=== PATIENT | female | born 1955 | race Caucasian/White ===

== ENCOUNTER → 2016-07-29 | Outpatient (CLI) | payer OTHER ==
--- NOTE | 2016-08-01 08:29 | XR ---
EXAMINATION TYPE: XR lumbosacral spine min 4V DATE OF EXAM: 07/29/2016 12:11 PM CLINICAL HISTORY: pain COMPARISON: NONE TECHNIQUE: Frontal, lateral, and oblique images of the lumbar spine are obtained. FINDINGS: There is moderate degenerative disc space narrowing at L4-5 and L5-S1. Moderate facet joint arthropathy is noted. Grade 1 anterolisthesis L4 and L5 measuring 5.5 mm as well as at L5-S1 measuri ng 2.8 mm. No evidence for compression fracture or osseous lesion. IMPRESSION: No acute fracture or dislocation is seen in the lumbar spine. Degenerative changes as di scussed ICD 10 NO FRACTURE, INITIAL EVALUATION
== END | disposition home or self-care (01) ==
LOC: RADXRYALE 11:54
PROVIDERS: ATTEND Internal Medicine
DX: M43.06 Spondylolysis, lumbar region (principal); M43.07 Spondylolysis, lumbosacral region; M12.88 Other specific arthropathies, not elsewhere classified, other specified site
CPT/HCPCS: 72110

== ENCOUNTER → 2016-10-31 | Outpatient (CLI) | payer OTHER ==
--- NOTE | 2016-11-01 09:40 | MM ---
Reason for exam: screening (asymptomatic). Last mammogram was performed 1 year ago. History: Patient is postmenopausal. Family history of breast cancer in grandmother. Took hormonal contraceptives for 10 years. Physical Findings: A clinical breast exam by your physician is recommended on an annual basis and results should be correlated with mammographic findings. MG Screening Mammo w CAD Bilateral CC and MLO view(s) were taken. Prior study comparison: October 26, 2015, bilateral MG screening mammo w CAD. October 20, 2014, bilateral MG screening mammo w CAD. September 19, 2013, bilateral digital screening mammo w/CAD. The breast tissue is heterogeneously dense. This may lower the sensitivity of mammography. There is no discrete abnormality. ASSESSMENT: Negative, BI-RAD 1 RECOMMENDATION: Routine screening mammogram of both breasts in 1 year.
== END | disposition home or self-care (01) ==
LOC: RADMAMWWP 10:13
PROVIDERS: ATTEND Internal Medicine
DX: Z12.31 Encounter for screening mammogram for malignant neoplasm of breast (principal)

== ENCOUNTER 2017-04-24 23:13 | Emergency (ER) | payer OTHER ==
[2017-04-24] MEDS ORDERED: DEXAMETHASONE SOD PHOSPHATE 10 MG/ML 1 ML VIAL IV STA (23:38)
[2017-04-24] MEDS ORDERED: SODIUM CHLORIDE 0.9% 1,000 ML IV ONE (23:38)
[2017-04-24] MEDS ORDERED: FAMOTIDINE 20 MG/2 ML VIAL IV STA (23:38)
--- NOTE | 2017-04-24 23:49 | ED ---
General Adult HPI - General Chief complaint: Skin/Abscess/Foreign Body Stated complaint: 20 Bee stings/Tongue swelling Time Seen by Provider: 04/24/17 23:27 Source: patient Mode of arrival: ambulatory Limitations: no limitations - History of Present Illness Initial comments: Patient is a 61-year-old female who presents with a chief complaint of multiple bee stings. Patient was mowing her lawn earlier today, and ran over a beehive. At that point she was attacked by multiple bees and sustained several bee stings. Immediately after being stung, the patient changed her clothes and went to the store and got Benadryl. Initially she took 50 mg. At around 9:00, the patient took 50 mg more. They presented to the emergency department because despite the Benadryl, she is having erythema and induration around the sites. Patient was stung on her right maxilla, right inner thigh, right lower back, and midline abdomen. Patient denies shortness of breath, or trouble swallowing. Patient has a significant medical history of hypertension, hypercholesterolemia, and vertigo. At this time, the patient has no other complaints. - Related Data Home Medications Medication Instructions Recorded Confirmed Atenolol [Tenormin] 25 mg PO BID 03/16/14 04/25/17 Citalopram Hydrobromide [CeleXA] 20 mg PO DAILY 03/16/14 04/25/17 Losartan/Hydrochlorothiazide 1 tab PO DAILY 03/16/14 04/25/17 [Losartan-Hctz 100-25 mg Tab] Naproxen [Naprosyn] 500 mg PO Q12HR 03/16/14 04/25/17 traMADol HCl [Ultram] 50 mg PO Q6H PRN 03/16/14 04/25/17 Hydrocodone/Acetaminophen [[place] 1 tab PO Q6HR PRN 04/25/17 04/25/17 5-325] Previous Rx's Medication Instructions Recorded EPINEPHrine [Epipen 2-Josias] 0.3 mg IM ONCE PRN #1 ml 04/25/17 Famotidine [Pepcid] 20 mg PO BID #20 tablet 04/25/17 predniSONE 50 mg PO DAILY #3 tablet 04/25/17 Allergies Allergy/AdvReac Type Severity Reaction Status Date / Time venom-honey bee Allergy Unknown Verified 04/25/17 13:25 ciprofloxacin [From Cipro] AdvReac Hallucinati Verified 04/25/17 13:24 ons Review of Systems ROS Statement: Those systems with pertinent positive or pertinent negative responses have been documented in the HPI. ROS Other: All systems not noted in ROS Statement are negative. Constitutional: Denies: fever Eyes: Denies: vision change ENT: Denies: ear pain, throat pain Respiratory: Denies: cough, dyspnea Cardiovascular: Denies: chest pain Endocrine: Denies: fatigue Gastrointestinal: Denies: abdominal pain, nausea, vomiting Genitourinary: Denies: dysuria Musculoskeletal: Denies: back pain Skin: Reports: lesions Neurological: Denies: headache Past Medical History Past Medical History: Hyperlipidemia, Hypertension History of Any Multi-Drug Resistant Organisms: None Reported Past Surgical History: Appendectomy, Joint Replacement, Tubal Ligation Additional Past Surgical History / Comment(s): cataracts, rt shoulder Past Psychological History: Depression Smoking Status: Former smoker Past Alcohol Use History: Occasional Past Drug Use History: None Reported General Exam Limitations: no limitations General appearance: alert, in no apparent distress Head exam: Present: normocephalic, other (Patient is a bee sting to the right maxilla. There is surrounding erythema, there is no induration.) Eye exam: Present: normal appearance, PERRL ENT exam: Present: normal exam, mucous membranes moist Neck exam: Present: normal inspection Respiratory exam: Present: normal lung sounds bilaterally. Absent: respiratory distress, wheezes Cardiovascular Exam: Present: regular rate, normal rhythm, normal heart sounds GI/Abdominal exam: Present: soft, other (Patient has a bee sting to the superior aspect of her umbilicus. There is surrounding erythema without induration.). Absent: distended Rectal exam: Present: deferred Extremities exam: Present: normal inspection Back exam: Present: normal inspection, other (Patient has a bee sting to the right lateral aspect of her lower back.) Neurological exam: Present: alert, oriented X3, CN II-XII intact Psychiatric exam: Present: normal affect, normal mood Skin exam: Present: warm, dry, intact, other (Skin examination is as documented above.) Course Vital Signs 04/24/17 04/24/17 04/25/17 23:17 23:52 00:46 Temperature 97.7 F 98.7 F Pulse Rate 66 61 78 Respiratory 22 18 17 Rate Blood Pressure 230/101 179/80 179/76 O2 Sat by Pulse 99 99 100 Oximetry Medical Decision Making - Medical Decision Making Patient presents with a chief complaint of multiple bee stings, and erythema around the affected areas. On initial examination, vital signs are stable except for hypertension. Patient denies any difficulty breathing. Patient already took 2 doses of Benadryl, both 50 mg. Her last dose was at 9:00. Patient will be given a dose of Pepcid, and a dose of Decadron. She'll be given 1 L of IV fluids, and monitored in the emergency department. At this time , there is no significant signs of anaphylaxis. Reevaluation, patient appears improved. This time she is stable for discharge. She is instructed to follow-up with primary care or return to the emergency department if her symptoms worsen or change. Disposition Clinical Impression: Allergic reaction Disposition: HOME SELF-CARE Instructions: General Allergic Reaction (ED) Prescriptions: predniSONE 50 mg PO DAILY #3 tablet Referrals: Kim Burciaga MD [Primary Care Provider] - 1-2 days
[2017-04-25 00:47] VITALS: BP 179/76; PULSE 78; RESP 17; TEMP 98.7
--- NOTE | 2017-04-26 06:35 | CDI ---
Documentation Clarification OP Dear TOSHIA Mena DO Please do addendum to ED report that provides Need Impression for visit. Thank you, Andrzej Campos Rag Inspector If you have any questions, please contact [employer]ender at [phone] [facility]
== END 2017-04-25 01:12 | disposition home or self-care (01) ==
LOC: EC 23:13
DX: T63.441A Toxic effect of venom of bees, accidental (unintentional), initial encounter (principal); E78.5 Hyperlipidemia, unspecified; I10 Essential (primary) hypertension; F32.9 Major depressive disorder, single episode, unspecified; Z88.1 Allergy status to other antibiotic agents; Z91.030 Bee allergy status; Z79.1 Long term (current) use of non-steroidal anti-inflammatories (NSAID); Z79.899 Other long term (current) drug therapy; Z87.891 Personal history of nicotine dependence
CPT/HCPCS: 99282 ×2; 96374 ×2; 96375 ×2; 96361 ×2; J1100

== ENCOUNTER 2017-04-25 12:19 | Emergency (ER) | payer OTHER ==
[2017-04-25 12:29] VITALS: BP 117/61; PULSE 64; RESP 18; TEMP 97.4
--- NOTE | 2017-04-25 12:49 | ED ---
General Adult HPI - General Chief complaint: Skin/Abscess/Foreign Body Stated complaint: f/u bee sting Time Seen by Provider: 04/25/17 12:32 Source: patient, RN notes reviewed, old records reviewed Mode of arrival: ambulatory Limitations: no limitations - History of Present Illness Initial comments: Patient 61-year-old female who presents emergency room today with a chief complaint of a bee sting that occurred yesterday. She does not that she was here in the emergency room. She states she was given IV medication. She was feeling well. 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 She states she's noticed some increased redness and swelling underneath the right eye. She states she was stung on the right forehead above the right eye. She states she had multiple stings to both lower upper extremities and across her abdomen. Patient denies any difficulty breathing, swallowing. She denies any other complaints or symptoms. She states she has noticed this swelling underneath the eye. She states the pharmacist recommended having a recheck. Patient denies any recent fever, chills, shortness of breath, chest pain, back pain, abdominal pain, nausea or vomiting, numbness or tingling, dysuria or hematuria, constipation or diarrhea, headaches or visual changes, or any other complaints. - Related Data Home Medications Medication Instructions Recorded Confirmed Atenolol [Tenormin] 25 mg PO BID 03/16/14 03/16/14 Citalopram Hydrobromide [CeleXA] 20 mg PO DAILY 03/16/14 03/16/14 Losartan/Hydrochlorothiazide 1 each PO DAILY 03/16/14 03/16/14 [Losartan-Hctz 100-25 mg Tab] Naproxen [Naprosyn] 500 mg PO Q12HR 03/16/14 03/16/14 traMADol HCl [Ultram] 50 mg PO Q6H PRN 03/16/14 03/16/14 Previous Rx's Medication Instructions Recorded Hydrocodone/Acetaminophen [[place] 1 each PO Q6HR PRN #20 tab 03/16/14 5-325] methylPREDNISolone [Medrol] 1 pack PO DIRECTED #1 tab.ds.pk 03/16/14 EPINEPHrine [Epipen 2-Josias] 0.3 mg IM ONCE PRN #1 ml 04/25/17 Famotidine [Pepcid] 20 mg PO BID #20 tablet 04/25/17 predniSONE 50 mg PO DAILY #3 tablet 04/25/17 Allergies Allergy/AdvReac Type Severity Reaction Status Date / Time ciprofloxacin [From Cipro] Allergy Hallucinati Verified 04/24/17 23:22 ons Review of Systems ROS Statement: Those systems with pertinent positive or pertinent negative responses have been documented in the HPI. ROS Other: All systems not noted in ROS Statement are negative. Past Medical History Past Medical History: Hyperlipidemia, Hypertension History of Any Multi-Drug Resistant Organisms: None Reported Past Surgical History: Appendectomy, Joint Replacement, Tubal Ligation Additional Past Surgical History / Comment(s): cataracts, rt shoulder Past Psychological History: Depression Smoking Status: Former smoker Past Alcohol Use History: Occasional Past Drug Use History: None Reported General Exam - General Exam Comments Initial Comments: General: The patient is awake and alert, in no distress, and does not appear acutely ill. Eye: Pupils are equal, round and reactive to light, extra-ocular movements are intact. No nystagmus. There is normal conjunctiva bilaterally. No signs of icterus. Ears, nose, mouth and throat: There are moist mucous membranes and no oral lesions. Neck: The neck is supple, there is no tenderness or JVD. Cardiovascular: There is a regular rate and rhythm. No murmur, rub or gallop is appreciated. Respiratory: Lungs are clear to auscultation, respirations are non-labored, breath sounds are equal. No wheezes, stridor, rales, or rhonchi. Musculoskeletal: Normal ROM, no tenderness. Strength 5/5. Sensation intact. Pulses equal bilaterally 2+. Neurological: A&O x 3. CN II-XII intact, There are no obvious motor or sensory deficits. Coordination appears grossly intact. Speech is normal. Skin: Does have some mild redness swelling underneath the right eye to the right cheek area. Psychiatric: Cooperative, appropriate mood & affect, normal judgment. Limitations: no limitations Course Vital Signs 04/25/17 12:27 Temperature 97.4 F L Pulse Rate 64 Respiratory 18 Rate Blood Pressure 117/61 O2 Sat by Pulse 99 Oximetry Medical Decision Making - Medical Decision Making Patient difficulty breathing, swallowing. Vitals are stable. Some swelling underneath the right side. She does admit that she was stung above. Has some swelling yesterday. This that the swelling is worse today. Was discussed with patient that his gravity has pulled on the rest of swelling of the eye to low. Advised to use warm compresses and ice as needed. Advised continue previous to prescribe steroids. Patient will be given prescription for Pepcid. She is advised to continue Benadryl one to 2 tabs. Patient will also be given a prescription for an EpiPen to use in the future if she is stung again. Advised patient also doctor return here to emergency room symptoms increase or worsen or for new concerns. Disposition Clinical Impression: Allergic reaction Disposition: HOME SELF-CARE Condition: Good Instructions: Anaphylaxis (ED) Additional Instructions: Please Benadryl one to 2 tabs every 6 hours. Please use Pepcid, steroids as prescribed. Please follow-up with family doctor in the next 2 days of symptoms have not improved. Please return to emergency room if the symptoms increase or worsen or for any other concerns. Prescriptions: EPINEPHrine [Epipen 2-Josias] 0.3 mg IM ONCE PRN #1 ml PRN Reason: Allergic Reaction Famotidine [Pepcid] 20 mg PO BID #20 tablet Referrals: Kim Burciaga MD [Primary Care Provider] - 1-2 days Time of Disposition: 12:48
== END 2017-04-25 13:31 | disposition home or self-care (01) ==
LOC: EC 12:19
DX: T63.441A Toxic effect of venom of bees, accidental (unintentional), initial encounter (principal); I10 Essential (primary) hypertension; F32.9 Major depressive disorder, single episode, unspecified; Z87.891 Personal history of nicotine dependence; Z79.1 Long term (current) use of non-steroidal anti-inflammatories (NSAID); Z79.899 Other long term (current) drug therapy; Z88.1 Allergy status to other antibiotic agents
CPT/HCPCS: 99283

== ENCOUNTER → 2017-11-06 | Outpatient (CLI) | payer OTHER ==
--- NOTE | 2017-11-07 10:04 | MM ---
Reason for exam: screening (asymptomatic). Last mammogram was performed 1 year ago. History: Patient is postmenopausal. Family history of breast cancer in grandmother. Took hormonal contraceptives for 10 years. Physical Findings: A clinical breast exam by your physician is recommended on an annual basis and results should be correlated with mammographic findings. MG 3D Screening Mammo W/Cad Bilateral CC and MLO view(s) were taken. Prior study comparison: October 31, 2016, bilateral MG screening mammo w CAD. October 26, 2015, bilateral MG screening mammo w CAD. The breast tissue is heterogeneously dense. This may lower the sensitivity of mammography. There is no discrete abnormality. ASSESSMENT: Negative, BI-RAD 1 RECOMMENDATION: Routine screening mammogram of both breasts in 1 year.
== END | disposition home or self-care (01) ==
LOC: RADMAMWWP 10:10
PROVIDERS: ATTEND Internal Medicine
DX: Z12.31 Encounter for screening mammogram for malignant neoplasm of breast (principal)
CPT/HCPCS: 77063; 77067

== ENCOUNTER → 2018-05-29 | Outpatient (CLI) | payer OTHER ==
--- NOTE | 2018-05-29 15:17 | XR ---
EXAMINATION TYPE: XR shoulder complete LT DATE OF EXAM: 05/29/2018 COMPARISON: NONE HISTORY: Pain TECHNIQUE: Shoulder examined in 3 FINDINGS: The humeral head articulates with the glenoid. The acromio-clavicular junction is normal. No acute fractures or dislocations are evident. A follow up study can be performed 7-10 days from acute trauma for continued pain. IMPRESSION: 1. Normal left Shoulder
== END | disposition home or self-care (01) ==
LOC: RADXRYALE 13:10
PROVIDERS: ATTEND Internal Medicine
DX: M25.512 Pain in left shoulder (principal)

== ENCOUNTER → 2018-12-27 | Outpatient (CLI) | payer MEDICARE, OTHER ==
--- NOTE | 2018-12-28 14:59 | MM ---
Reason for exam: screening (asymptomatic). Last mammogram was performed 1 year and 2 months ago. History: Patient is postmenopausal. Family history of breast cancer in grandmother. Took hormonal contraceptives for 10 years. Physical Findings: A clinical breast exam by your physician is recommended on an annual basis and results should be correlated with mammographic findings. MG 3D Screening Mammo W/Cad Bilateral CC and MLO view(s) were taken. Prior study comparison: November 06, 2017, bilateral MG 3d screening mammo w/cad. October 31, 2016, bilateral MG screening mammo w CAD. The breast tissue is heterogeneously dense. This may lower the sensitivity of mammography. No suspicious abnormality. No significant changes when compared with prior studies. ASSESSMENT: Negative, BI-RAD 1 RECOMMENDATION: Routine screening mammogram of both breasts in 1 year.
== END | disposition home or self-care (01) ==
LOC: RADMAMWWP 11:13
PROVIDERS: ATTEND Internal Medicine
DX: Z12.31 Encounter for screening mammogram for malignant neoplasm of breast (principal)
CPT/HCPCS: 77063; 77067

== ENCOUNTER → 2019-04-10 | Outpatient (CLI) | payer MEDICARE, OTHER ==
--- NOTE | 2019-04-10 16:06 | XR ---
EXAMINATION TYPE: XR hand complete LT DATE OF EXAM: 04/10/2019 COMPARISON: None HISTORY: Pain TECHNIQUE: Three-view left hand FINDINGS: No acute fractures are evident. The soft tissues are normal. Joint spaces are preserved. IMPRESSION: 1. Normal three-view left hand. 2. Follow-up exams can be performed 7-10 days from acute trauma for continued pain.
--- NOTE | 2019-04-10 16:07 | XR ---
EXAMINATION TYPE: XR wrist complete LT DATE OF EXAM: 04/10/2019 COMPARISON: None HISTORY: Fall, pain TECHNIQUE: Three-view left wrist FINDINGS: No acute displaced fractures are evident. Joint spaces are preserved. Soft tissues appear w ithin normal limits. Follow-up exam can be performed 7-10 days from acute trauma for continued pain. Nuclear medicine bone scan could be performed for pain at the anatomic snuff box. IMPRESSION: 1. Normal three-view left wrist
== END | disposition home or self-care (01) ==
LOC: RADXRYALE 11:55
PROVIDERS: ATTEND Internal Medicine
DX: S69.92XA Unspecified injury of left wrist, hand and finger(s), initial encounter (principal); M25.532 Pain in left wrist

== ENCOUNTER → 2019-06-01 | Outpatient (CLI) | payer MEDICARE, OTHER ==
--- NOTE | 2019-06-01 14:35 | MR ---
EXAMINATION TYPE: MR wrist LT wo con DATE OF EXAM: 06/01/2019 COMPARISON: None HISTORY: Lt wrist pain/sprain, possible scaphoid fx Standard multiplanar, multisequence MRI departmental protocol Multiplanar, multisequence images of the left wrist were acquired. Diffusion weighted imaging was per formed. FINDINGS: On the T2 images there is some patchy increased signal in the capitate bone. There is sligh t increased signal also in the proximal lunate and in the triquetrum. I see no discrete fracture line . The scaphoid is intact. There is severe narrowing of the radiocarpal joint space. Triangular cartil age appears intact. There is a mild wrist joint effusion. The flexor tendons appear intact. Extensor tendons are intact. Distal radius and ulna appear intact. The proximal metacarpals are intact. There is narrowing of the first carpometacarpal joint space with mild spurring and joint effusion. IMPRESSION: No evidence of a fracture. Moderate osteoarthritis of the radiocarpal joint. Increased signal in the lunate capitate and triquetrum consistent with bone bruise. Wrist joint effusion consistent with syno vitis.
== END | disposition home or self-care (01) ==
LOC: RADMRIMAIN 09:17
PROVIDERS: ATTEND Orthopaedic Surgery
DX: M19.032 Primary osteoarthritis, left wrist (principal)

== ENCOUNTER → 2020-02-11 | Outpatient (CLI) | payer MEDICARE, OTHER ==
--- NOTE | 2020-02-12 08:40 | MM ---
Reason for exam: screening (asymptomatic). Last mammogram was performed 1 year and 1 month ago. History: Patient is postmenopausal. Family history of breast cancer in grandmother. Took hormonal contraceptives for 10 years. Physical Findings: A clinical breast exam by your physician is recommended on an annual basis and results should be correlated with mammographic findings. MG 3D Screening Mammo W/Cad Bilateral CC and MLO view(s) were taken. Prior study comparison: December 27, 2018, bilateral MG 3d screening mammo w/cad. November 06, 2017, bilateral MG 3d screening mammo w/cad. The breast tissue is heterogeneously dense. This may lower the sensitivity of mammography. There is no discrete abnormality. ASSESSMENT: Negative, BI-RAD 1 RECOMMENDATION: Routine screening mammogram of both breasts in 1 year.
== END | disposition home or self-care (01) ==
LOC: RADMAMWWP 10:17
PROVIDERS: ATTEND Internal Medicine
DX: Z12.31 Encounter for screening mammogram for malignant neoplasm of breast (principal)
CPT/HCPCS: 77063; 77067

== ENCOUNTER 2020-02-28 13:00 | Emergency (ER) | payer MEDICARE, OTHER ==
[2020-02-28 13:07] VITALS: RESP 16
--- NOTE | 2020-02-28 13:23 | ED ---
Extremity Problem HPI - General Chief complaint: Extremity Problem,Nontraumatic Stated complaint: rt wrist pain Time Seen by Provider: 02/28/20 13:13 Source: patient, RN notes reviewed, old records reviewed Mode of arrival: ambulatory Limitations: no limitations - History of Present Illness Initial comments: This is a 64-year-old female DF she presents today for evaluation regards to wrist pain patient has no history of pain in that wrist no traumas. Patient does have some pain and swelling noted in that right wrist tenderness throughout. No modifying factors for symptoms at home symptoms 3 days MD Complaint: extremity pain, joint pain (Right wrist) -: days(s) Location: right, upper extremity History of Same: No -: Yes arthralgia Radiation: none Severity scale (1-10): 6 Quality: aching Consistency: constant Improves with: nothing Worsens with: nothing Associated Symptoms: denies other symptoms - Related Data Home Medications Medication Instructions Recorded Confirmed Losartan/Hydrochlorothiazide 1 tab PO DAILY 03/16/14 02/28/20 [Losartan-Hctz 100-25 mg Tab] atenoloL [Tenormin] 25 mg PO BID 03/16/14 02/28/20 Aspirin EC [Ecotrin Low Dose] 81 mg PO DAILY 02/28/20 02/28/20 Atorvastatin Calcium [Lipitor] 40 mg PO HS 02/28/20 02/28/20 Cholecalciferol [Vitamin D3 (25 1,000 unit PO DAILY 02/28/20 02/28/20 Mcg = 1000 Iu)] Cyanocobalamin (Vitamin B-12) 1,000 mcg PO DAILY 02/28/20 02/28/20 [Vitamin B-12] Previous Rx's Medication Instructions Recorded EPINEPHrine [Epipen 2-Josias] 0.3 mg IM ONCE PRN #1 ml 04/25/17 Allergies Allergy/AdvReac Type Severity Reaction Status Date / Time venom-honey bee Allergy Unknown Verified 02/28/20 14:03 ciprofloxacin [From Cipro] AdvReac Hallucinati Verified 02/28/20 14:03 ons Review of Systems ROS Statement: Those systems with pertinent positive or pertinent negative responses have been documented in the HPI. ROS Other: All systems not noted in ROS Statement are negative. Past Medical History Past Medical History: Hyperlipidemia, Hypertension History of Any Multi-Drug Resistant Organisms: None Reported Past Surgical History: Appendectomy, Joint Replacement, Tubal Ligation Additional Past Surgical History / Comment(s): cataracts, rt shoulder Past Psychological History: Depression Smoking Status: Former smoker Past Alcohol Use History: Occasional Past Drug Use History: None Reported General Exam Limitations: no limitations General appearance: alert, in no apparent distress Head exam: Present: atraumatic, normocephalic, normal inspection Eye exam: Present: normal appearance, PERRL, EOMI. Absent: scleral icterus, conjunctival injection, periorbital swelling ENT exam: Present: normal exam, mucous membranes moist Neck exam: Present: normal inspection. Absent: tenderness, meningismus, lymphadenopathy Respiratory exam: Present: normal lung sounds bilaterally. Absent: respiratory distress, wheezes, rales, rhonchi, stridor Cardiovascular Exam: Present: regular rate, normal rhythm, normal heart sounds. Absent: systolic murmur, diastolic murmur, rubs, gallop, clicks GI/Abdominal exam: Present: soft, normal bowel sounds. Absent: distended, tenderness, guarding, rebound, rigid Extremities exam: Present: normal inspection, full ROM, normal capillary refill. Absent: tenderness, pedal edema, joint swelling, calf tenderness Back exam: Present: normal inspection Neurological exam: Present: alert, oriented X3, CN II-XII intact Psychiatric exam: Present: normal affect, normal mood Skin exam: Present: warm, dry, intact, normal color. Absent: rash Course Vital Signs 02/28/20 02/28/20 13:04 15:22 Temperature 98.2 F 97.8 F Pulse Rate 75 79 Respiratory 16 16 Rate Blood Pressure 130/73 136/79 O2 Sat by Pulse 100 98 Oximetry - Reevaluation(s) Reevaluation #1: Medical record is reviewed Symptoms are significantly improving, resolved Spoke with patient regarding symptoms and findings, questions answered Patient feels good for discharge home Medical Decision Making - Medical Decision Making 64 female Ximena with arthritis right wrist, no significant findings of nerve injury or carpal tunnel at this time. Symptoms are acute in onset 3 days, will continue anti-inflammatories evaluation of how pain and function progress - Radiology Data Radiology results: report reviewed (X-ray right wrist does show osteoarthritis), image reviewed Disposition Clinical Impression: Right wrist pain, Arthritis Disposition: HOME SELF-CARE Condition: Good Instructions (If sedation given, give patient instructions): Osteoarthritis (ED), Arthralgia (ED) Is patient prescribed a controlled substance at d/c from ED?: No Referrals: Kim Burciaga MD [Primary Care Provider] - 1-2 days
[2020-02-28] MEDS ORDERED: ACET/COD 300 MG/30 MG STARTER PACK 6 TAB BTL PO STA (13:32)
[2020-02-28] MEDS ORDERED: KETOROLAC 60 MG/2 ML VIAL IM STA (13:32)
[2020-02-28] MEDS ORDERED: Acetaminophen-Codeine 300-30mg TAB PO STA (13:32)
--- NOTE | 2020-02-28 13:52 | XR ---
EXAMINATION TYPE: XR wrist complete RT DATE OF EXAM: 02/28/2020 COMPARISON: NONE HISTORY: Pain TECHNIQUE: Four views submitted. FINDINGS: The osseous structures are intact. The joint spaces are preserved and there is no acute fracture or dislocation. Mild diffuse osteopenia. Findings suggest chondrocalcinosis. IMPRESSION: 1. No definite acute fracture or dislocation if symptoms persist, follow-up study in 7 to 10 days wo uld be suggested. 2. findings suggest chondrocalcinosis correlate for depositional arthropathy or osteoarthritis.
[2020-02-28] MEDS ORDERED: dexAMETHasone 4 MG TAB PO STA (14:30)
[2020-02-28 15:24] VITALS: BP 136/79; PULSE 79; TEMP 97.8
== END 2020-02-28 15:22 | disposition home or self-care (01) ==
LOC: EC 13:00
DX: M19.031 Primary osteoarthritis, right wrist (principal); I10 Essential (primary) hypertension; E78.5 Hyperlipidemia, unspecified; Z79.82 Long term (current) use of aspirin; Z79.899 Other long term (current) drug therapy; Z91.030 Bee allergy status; Z88.1 Allergy status to other antibiotic agents; Z87.891 Personal history of nicotine dependence
CPT/HCPCS: 73110; 99284; 96372; J8540; J1885

== ENCOUNTER → 2020-06-08 | Outpatient (CLI) | payer MEDICARE, OTHER ==
--- NOTE | 2020-06-08 08:35 | US ---
EXAMINATION TYPE: US kidneys/renal and bladder DATE OF EXAM: 06/08/2020 COMPARISON: NONE CLINICAL HISTORY: N28.9 Abnormal kidney function. EXAM MEASUREMENTS: Right Kidney: 6.7 x 3.2 x 3.5 cm Left Kidney: 10.5 x 5.5 x 4.8 cm Right Kidney: measures small in size, cortical thinning, no hydronephrosis or masses seen Left Kidney: no hydronephrosis or masses seen Bladder: wnl Bilateral Jets seen: no IMPRESSION: Cortical thinning and atrophy on the right but no evidence of hydronephrosis or nephrolithiasis bilat erally.
== END | disposition home or self-care (01) ==
LOC: RADUSWWP 07:26
PROVIDERS: ATTEND Internal Medicine
DX: N26.1 Atrophy of kidney (terminal) (principal)
CPT/HCPCS: 76770

== ENCOUNTER → 2021-05-14 | Outpatient (CLI) | payer MEDICARE, OTHER ==
--- NOTE | 2021-05-14 13:33 | BD ---
EXAMINATION TYPE: Axial Bone Density DATE OF EXAM: 05/14/2021 COMPARISON: NONE CLINICAL HISTORY: Height: 64.5 IN Weight: 171 LBS RISK FACTORS HISTORY OF: Active: YES Postmenopausal woman: AGE 48 Lost more than 2 inches in height since high school: YES 07/25" MEDICATIONS: Additional Medications: AMIODARONE, ATENOLOL, ATORVASTATIN, ELIQUIS, LOSARTAN EXAM MEASUREMENTS: Bone mineral densitometry was performed using the [facility]. Bone mineral density as measured about the Lumbar spine is: ----- L1-L4(G/cm2): 1.160 T Score Values are as follows: ----- L2: 0.3 ----- L3: -0.6 ----- L4: -0.2 ----- L1-L4: -0.2 Bone mineral density BASELINE Bone mineral density about the R hip (g/cm2): 0.859 Bone mineral density about the L hip (g/cm2): 0.901 T Score values are as follows: -----R Neck: -1.3 -----L Neck: -1.0 -----R Total: -1.6 -----L Total: -1.5 Bone mineral density BASELINE IMPRESSION: Osteopenia bilateral femora NOTE: T-SCORE=SD OF THE YOUNG ADULT MEAN.
--- NOTE | 2021-05-17 11:46 | MM ---
Reason for exam: screening (asymptomatic). Last mammogram was performed 1 year and 3 months ago. History: Patient is postmenopausal. Family history of breast cancer in grandmother. Took hormonal contraceptives for 10 years. Physical Findings: A clinical breast exam by your physician is recommended on an annual basis and results should be correlated with mammographic findings. MG 3D Screening Mammo W/Cad Bilateral CC and MLO view(s) were taken. Prior study comparison: February 11, 2020, bilateral MG 3d screening mammo w/cad. December 27, 2018, bilateral MG 3d screening mammo w/cad. The breast tissue is heterogeneously dense. This may lower the sensitivity of mammography. There is no discrete abnormality. No significant changes when compared with prior studies. ASSESSMENT: Negative, BI-RAD 1 RECOMMENDATION: Routine screening mammogram of both breasts in 1 year.
== END | disposition home or self-care (01) ==
LOC: RADMAMWWP 08:43
PROVIDERS: ATTEND Internal Medicine
DX: Z12.31 Encounter for screening mammogram for malignant neoplasm of breast (principal); M85.89 Other specified disorders of bone density and structure, multiple sites; Z79.899 Other long term (current) drug therapy; Z79.01 Long term (current) use of anticoagulants
CPT/HCPCS: 77063; 77067; 77080

== ENCOUNTER 2022-03-01 21:47 | Emergency (ER) | payer MEDICARE, OTHER ==
[2022-03-01 21:55] VITALS: RESP 18
[2022-03-01] MEDS ORDERED: diphenhydrAMINE 50 MG/ML 1 ML VIAL IM STA (22:14)
[2022-03-01] MEDS ORDERED: methylPREDNISolone SOD SUCCI 125 MG/2 ML VIAL IM STA (22:14)
[2022-03-01] MEDS ORDERED: FAMOTIDINE 20 MG TAB PO STA (22:14)
--- NOTE | 2022-03-01 22:18 | ED ---
Allergic Reaction HPI - General Chief complaint: Allergic Reaction Stated complaint: Allergic Reaction Time Seen by Provider: 03/01/22 22:09 Source: patient, RN notes reviewed Mode of arrival: wheelchair - History of Present Illness Initial Comments: Patient presents after being stung several times by bees. Patient states she was stung in her face, both arms, her right side, and her right lower leg. Patient states that years ago she had a systemic reaction to bee stings. Patient states she was given several medications in the emergency department and she was actually sent home with an EpiPen. Patient does not have an EpiPen now. Nor does she complain of shortness of breath or upper respiratory symptoms. No throat closing. Patient complaining of itching at the bee sting sites. No headache, no fever or chills, no changes in vision or hearing, no sore throat or difficulty with speech, no neck pain, no chest pain or shortness of breath, no abdominal pain, no nausea or vomiting, no changes in urination or bowel movements, no numbness or tingling, no extremity pain Past medical, surgical, social, and family history reviewed. - Related Data Home Medications Medication Instructions Recorded Confirmed Losartan/Hydrochlorothiazide 1 tab PO DAILY 03/16/14 02/28/20 [Losartan-Hctz 100-25 mg Tab] atenoloL [Tenormin] 25 mg PO BID 03/16/14 02/28/20 Aspirin EC [Ecotrin Low Dose] 81 mg PO DAILY 02/28/20 02/28/20 Atorvastatin Calcium [Lipitor] 40 mg PO HS 02/28/20 02/28/20 Cholecalciferol [Vitamin D3 (25 1,000 unit PO DAILY 02/28/20 02/28/20 Mcg = 1000 Iu)] Cyanocobalamin (Vitamin B-12) 1,000 mcg PO DAILY 02/28/20 02/28/20 [Vitamin B-12] Previous Rx's Medication Instructions Recorded EPINEPHrine [Epipen 2-Josias] 0.3 mg IM ONCE PRN #1 ml 04/25/17 EPINEPHrine (Auto Inject) [Epipen] 0.3 mg IM ONCE PRN #2 each 03/01/22 Famotidine [Pepcid] 20 mg PO BID #6 tablet 03/01/22 predniSONE 50 mg PO DAILY #3 tab 03/01/22 Allergies Allergy/AdvReac Type Severity Reaction Status Date / Time venom-honey bee Allergy Unknown Verified 03/01/22 21:55 ciprofloxacin [From Cipro] AdvReac Hallucinati Verified 03/01/22 21:55 ons Review of Systems ROS Statement: Those systems with pertinent positive or pertinent negative responses have been documented in the HPI. ROS Other: All systems not noted in ROS Statement are negative. Past Medical History Past Medical History: Hyperlipidemia, Hypertension History of Any Multi-Drug Resistant Organisms: None Reported Past Surgical History: Appendectomy, Joint Replacement, Tubal Ligation Additional Past Surgical History / Comment(s): cataracts, rt shoulder Past Psychological History: Depression Smoking Status: Former smoker Past Alcohol Use History: Occasional Past Drug Use History: None Reported General Exam - General Exam Comments Initial Comments: Patient has several areas noted which are consistent with bee stings. No evidence of urticaria. No respiratory distress. No upper respiratory symptomology. Airway is patent. Cranial nerves II through XII grossly intact, vital signs stable, patient afebrile General appearance: alert, in no apparent distress Head exam: Present: atraumatic, normocephalic, normal inspection Eye exam: Present: normal appearance, PERRL, EOMI. Absent: scleral icterus, conjunctival injection, periorbital swelling ENT exam: Present: normal exam, normal oropharynx, mucous membranes moist, TM's normal bilaterally, normal external ear exam. Absent: mucous membranes dry Neck exam: Present: normal inspection, full ROM. Absent: tenderness, meningismus, lymphadenopathy Respiratory exam: Present: normal lung sounds bilaterally. Absent: respiratory distress, wheezes, rales, rhonchi, stridor, chest wall tenderness, accessory muscle use, decreased breath sounds, prolonged expiratory Cardiovascular Exam: Present: regular rate, normal rhythm, normal heart sounds. Absent: systolic murmur, diastolic murmur, rubs, gallop, clicks GI/Abdominal exam: Present: soft, normal bowel sounds. Absent: distended, tenderness, guarding, rebound, rigid Extremities exam: Present: normal inspection, full ROM, normal capillary refill. Absent: tenderness, pedal edema, joint swelling, calf tenderness Back exam: Present: normal inspection Neurological exam: Present: alert, oriented X3, CN II-XII intact Psychiatric exam: Present: normal affect, normal mood Skin exam: Present: warm, dry, intact, normal color, other (Mild erythematous areas on the face, arms, and right leg consistent with bee stings. Some excoriation. No urticaria). Absent: rash, cyanosis, diaphoretic, urticaria, vesicles, petechiae, pallor, mottled, abrasion Course Vital Signs 03/01/22 21:49 Temperature 98.5 F Pulse Rate 69 Respiratory 18 Rate Blood Pressure 127/55 O2 Sat by Pulse 97 Oximetry - Reevaluation(s) Reevaluation #1: 03/01/22 23:30 Patient reevaluated and is in no distress. Repeat ENT examination and cardiopulmonary examination are unchanged. Patient hemodynamically stable. Patient states she is feeling better already and wants to go home. Medical Decision Making - Medical Decision Making She appears to have a local reaction to several bee stings. I do not believe the patient requires epinephrine. Patient will be given corticosteroids and antihistamines. We'll observe as the bee stings occurred about one hour prior to arrival. Plan for discharge We'll prescribe an EpiPen if the patient gets any systemic symptoms in the future. We'll treat with 3 days of antihistamines and prednisone. Patient had no evidence of respiratory distress or airway issues on reevaluation. Patient was feeling well and wanted to go home. No evidence of anaphylaxis. Patient was told to return to the ER for any signs or symptoms worsen. Told to return immediately if any other problems arise. All questions answered. Treatment plan discussed. Patient in agreement Every effort has been made to ensure accuracy of this dictation. However, due to the limitations of electronic medical records and dictation devices, errors in charting still occur. Design Maker Dr. Cueto Disposition Clinical Impression: Hymenoptera sting Disposition: HOME SELF-CARE Instructions (If sedation given, give patient instructions): Insect Bite or Sting (ED) Additional Instructions: Take prednisone as directed for the next 3 days. Also waste picker an antihistamine of your choice, such as Claritin or Zyrtec. Alternatively, you could take Benadryl as directed on the bottle but he would need to take this 3 times per day. Follow-up with your regular physician as directed. Return to the ER immediately if any symptoms worsen, new symptoms arise, or any other problems develop. Is patient prescribed a controlled substance at d/c from ED?: No Referrals: Kim Burciaga MD [Primary Care Provider] - 1-2 days Time of Disposition: 23:31
[2022-03-01] MEDS ORDERED: DIPHENOX-ATROP STARTER PACK 8 TAB BTL PO STA (22:35)
[2022-03-02 00:07] VITALS: BP 146/60; PULSE 68; TEMP 98.3
== END 2022-03-02 00:08 | disposition home or self-care (01) ==
LOC: EC 21:47
DX: T63.441A Toxic effect of venom of bees, accidental (unintentional), initial encounter (principal); I10 Essential (primary) hypertension; E78.5 Hyperlipidemia, unspecified; F32.A Depression, unspecified; Z87.891 Personal history of nicotine dependence; Z91.030 Bee allergy status; Z88.1 Allergy status to other antibiotic agents; Z79.82 Long term (current) use of aspirin; Z79.899 Other long term (current) drug therapy
CPT/HCPCS: 99282; 96372 ×2; J1200; J2930

== ENCOUNTER → 2022-07-01 | Outpatient (CLI) | payer MEDICARE ==
--- NOTE | 2022-07-04 10:36 | MM ---
Reason for Exam: Screening (asymptomatic). Last mammogram was performed 1 year(s) and 2 month(s) ago. Patient History: Menarche at age 9. First Full-Term at age 18. Postmenopausal. Patient used Hormonal Contraceptives for 10 years. Maternal grandmother had breast cancer, age 48. Risk Values: Gricelda 5 year model risk: 1.7%. NCI Lifetime model risk: 5.5%. Prior Study Comparison: 12/27/2018 Bilateral Screening Mammogram, [facility]. 02/11/2020 Bilateral Screening Mammogram, [facility]. 05/14/2021 Bilateral Screening Mammogram, [facility]. Tissue Density: There are scattered fibroglandular densities. Findings: Analyzed By CAD. There is no suspicious group of microcalcifications or new suspicious mass in either breast. Overall Assessment: Negative, BI-RAD 1 Management: Screening Mammogram of both breasts in 1 year. A clinical breast exam by your physician is recommended on an annual basis and results should be correlated with mammographic findings. [facility] will attempt to contact patient to return for supplemental views and ultrasound if indicated. Electronically signed and approved by: Steve Ng DO
== END | disposition home or self-care (01) ==
LOC: RADMAMWWP 10:19
PROVIDERS: ATTEND Internal Medicine
DX: Z12.31 Encounter for screening mammogram for malignant neoplasm of breast (principal); Z78.0 Asymptomatic menopausal state; Z80.3 Family history of malignant neoplasm of breast
CPT/HCPCS: 77063; 77067

== ENCOUNTER → 2022-08-19 | Outpatient (CLI) | payer MEDICARE, OTHER ==
[2022-08-19 16:03] LABS: African American GFR (CKD) 53.8 (60.0-200.0); Anion Gap 10.3 mmol/L (10.00-18.00); BUN/Creat Ratio 19.33 Ratio (12.00-20.00); Blood Urea Nitrogen 23.2 mg/dL (9.0-27.0); Calcium 9.5 mg/dL (8.7-10.3); Carbon Dioxide 24.7 mmol/L (20.0-27.5); Non-African American GFR(CKD) 46.4 (60.0-200.0); Potassium 4.4 mmol/L (3.5-5.5)
== END | disposition home or self-care (01) ==
LOC: LABWHC1 09:06
PROVIDERS: ATTEND Internal Medicine
DX: N18.9 Chronic kidney disease, unspecified (principal)
CPT/HCPCS: 36415; 80048

== ENCOUNTER 2022-10-12 05:57 | Day surgery (SDC) | payer MEDICARE, OTHER ==
[2022-10-12] MEDS ORDERED: LIDOCAINE 1% (10MG/ML) FOR IV START INTRADERMA PRN (06:11)
[2022-10-12] MEDS ORDERED: LACTATED RINGERS 1,000 ML IV SCH (06:11)
[2022-10-12] MEDS ORDERED: MIDAZOLAM 2 MG/2 ML VIAL IVP ONE (06:50)
[2022-10-12 06:53] VITALS: TEMP 96.9
[2022-10-12] MEDS ORDERED: PROPOFOL 10 MG/ML 20 ML VIAL IV ONE (07:28)
[2022-10-12] MEDS ORDERED: IV FLUID CONTINUATION 1,000 ML IV ONE (07:50)
[2022-10-12 09:04] VITALS: BP 127/60; PULSE 47; RESP 16
--- NOTE | 2022-10-12 12:34 | P.TEE ---
Description of Procedure(s): Procedure performed: Transesophageal Echocardiogram with color flow doppler, pulsed wave doppler and continuous wave doppler, synchronized cardioversion Moderate conscious sedation: Moderate conscious sedation was supplied by anesthesia, see separate report. Complications: none Indications: Atrial fibrillation PROCEDURE: After the risks, benefits and alternatives of the above mentioned procedure was explained in detail with the patient, informed consent was obtained. Patient was brought to the lab in a fasting state. Patient was given IV Versed and Fentanyl for sedation. The throat was sprayed with Hurricane to anesthetize the throat. A lubricated Omni probe was then introduced into the esophagus and stomach and multiple views were obtained. 2D echo with color flow doppler, pulsed wave doppler and continuous wave doppler was utilized. Agitated saline bubbles were injected to assess for any intra-atrial shunt. The probe was then removed. There was no thrombus noted and therefore patient underwent synchronized cardioversion x 1 with 200J with resultant sinus bradycardia. Patient tolerated the procedure well. Patient was transferred to the post procedure area in stable and satisfactory condition. FINDINGS: 1. The aortic valve is tricuspid with normal function with trace aortic insufficiency. 2. The mitral valve appears be normal with moderate mitral regurgitation. 3. Tricuspid valve is normal with moderate to severe tricuspid regurgitation. 4. The interatrial septum is intact. No evidence of PFO. 5. Left atrial appendage is free of clot. 6. Left ventricular ejection fraction 50-55% 7. Severely dilated left and right atria
== END 2022-10-12 09:29 | disposition home or self-care (01) ==
LOC: OR 05:57
PROVIDERS: ATTEND Internal Medicine
DX: I08.1 Rheumatic disorders of both mitral and tricuspid valves (principal); I48.19 Other persistent atrial fibrillation; I50.32 Chronic diastolic (congestive) heart failure; I13.0 Hypertensive heart and chronic kidney disease with heart failure and stage 1 through stage 4 chronic kidney disease, or unspecified chronic kidney disease; N18.9 Chronic kidney disease, unspecified; E78.5 Hyperlipidemia, unspecified; F17.210 Nicotine dependence, cigarettes, uncomplicated; Z98.890 Other specified postprocedural states; Z79.01 Long term (current) use of anticoagulants; Z79.899 Other long term (current) drug therapy
CPT/HCPCS: 93312; 93320; 93325; 92960; 93005; J2250; J2704

== ENCOUNTER 2022-10-27 18:37 | Emergency (ER) | payer MEDICARE, OTHER ==
[2022-10-27 18:45] VITALS: BP 139/76; PULSE 46; RESP 18; TEMP 98
--- NOTE | 2022-10-27 19:19 | ED ---
Chest Pain HPI - General Chief Complaint: Chest Pain Stated Complaint: Chest Pain Time Seen by Provider: 10/27/22 18:50 Source: patient Mode of arrival: ambulatory Limitations: no limitations - History of Present Illness Initial Comments: This patient is 67-year-old woman presenting to have evaluation of substernal chest pains that have been going on approximately 15 hours. They are intermittent, lasting about 5-10 seconds at a time. They recur frequently. They are sharp. She has not had associated anginal symptoms. The patient is concerned because she did have recent cardioversion for atrial fibrillation. The patient has not noted any associated palpitations. Onset/Timin -: hour(s) Onset: during rest Pain Location: substernal Pain Radiation: none Severity: moderate Quality: sharp Consistency: intermittent, now resolved Improves With: nothing Worsens With: nothing Treatments Prior to Arrival: none - Related Data Home Medications Medication Instructions Recorded Confirmed atenoloL [Tenormin] 25 mg PO BID 03/16/14 10/12/22 Cholecalciferol [Vitamin D3 (25 1,000 unit PO DAILY 02/28/20 10/12/22 Mcg = 1000 Iu)] Cyanocobalamin (Vitamin B-12) 1,000 mcg PO DAILY 02/28/20 10/12/22 [Vitamin B-12] Amiodarone [Cordarone] 100 mg PO DAILY 10/07/22 10/12/22 Apixaban [Eliquis] 5 mg PO BID 10/07/22 10/12/22 Losartan Potassium 100 mg PO DAILY 10/07/22 10/12/22 Torsemide [Demadex] 20 mg PO DAILY 10/07/22 10/12/22 Unk Coq10 1 tab PO DAILY 10/07/22 10/12/22 Unk Tumeric 1 tab PO DAILY 10/07/22 10/12/22 hydrALAZINE HCL 50 mg PO BID 10/07/22 10/12/22 Previous Rx's Medication Instructions Recorded EPINEPHrine [Epipen 2-Josias] 0.3 mg IM ONCE PRN #1 ml 04/25/17 valACYclovir HCL [Valtrex] 1,000 mg PO TID #30 tablet 10/29/22 Allergies Allergy/AdvReac Type Severity Reaction Status Date / Time venom-honey bee Allergy Swelling Verified 10/29/22 11:52 ciprofloxacin [From Cipro] AdvReac Hallucinati Verified 10/29/22 11:52 ons Review of Systems ROS Statement: Those systems with pertinent positive or pertinent negative responses have been documented in the HPI. ROS Other: All systems not noted in ROS Statement are negative. Constitutional: Denies: fever, chills Respiratory: Denies: cough, dyspnea Cardiovascular: Reports: chest pain. Denies: palpitations, orthopnea, edema Gastrointestinal: Denies: nausea, vomiting, diarrhea Genitourinary: Denies: dysuria, hematuria Musculoskeletal: Denies: back pain Skin: Denies: rash Neurological: Denies: headache, weakness Psychiatric: Reports: anxiety EKG Findings - EKG Results: EKG: interpreted by ERMD, sinus rhythm, normal axis EKG shows: bradycardia (Rate 59 bpm) - Blocks, [place], Hypertrophy, ST Abn: AV and intraventricular conduction: 1 AV block Repolarization changes or abnormalities: Q-T interval prolongation Past Medical History Past Medical History: Atrial Fibrillation, Hypertension, Osteoarthritis (OA) Additional Past Medical History / Comment(s): takes statin as preventitive. has freqent + urine samples but no sx of uti. pt states they no longer give her abx. arthritis and bursitis to legs. eczema. falls alot pt states she is clumsy. History of Any Multi-Drug Resistant Organisms: None Reported Past Surgical History: Appendectomy, Joint Replacement, Tubal Ligation Additional Past Surgical History / Comment(s): cataracts, rt shoulder, cardioversion Past Anesthesia/Blood Transfusion Reactions: No Reported Reaction Past Psychological History: Depression Smoking Status: Former smoker Past Alcohol Use History: None Reported Past Drug Use History: None Reported - Past Family History Mother Family Medical History: AFIB Father Family Medical History: Congestive Heart Failure (CHF) Sister(s) Family Medical History: Cancer General Exam Limitations: no limitations General appearance: alert, in no apparent distress Head exam: Present: atraumatic, normocephalic Eye exam: Present: normal appearance. Absent: scleral icterus, conjunctival injection ENT exam: Present: normal oropharynx Neck exam: Present: normal inspection Respiratory exam: Present: normal lung sounds bilaterally. Absent: respiratory distress, wheezes, rales, rhonchi, stridor, chest wall tenderness Cardiovascular Exam: Present: regular rate, normal rhythm, normal heart sounds. Absent: systolic murmur, diastolic murmur, rubs, gallop GI/Abdominal exam: Present: soft. Absent: distended, tenderness, guarding, rebound, rigid, mass Extremities exam: Present: normal inspection, normal capillary refill. Absent: pedal edema Back exam: Present: normal inspection. Absent: CVA tenderness (R), CVA tenderness (L) Neurological exam: Present: alert Skin exam: Present: warm, dry, intact, normal color. Absent: rash Course Vital Signs 10/27/22 18:39 Temperature 98 F Pulse Rate 46 L Respiratory 18 Rate Blood Pressure 139/76 O2 Sat by Pulse 100 Oximetry Chest Pain MDM - MDM This patient is 67-year-old woman presenting with atypical intermittent chest pains. The workup here is unremarkable. She did have chest x-ray which I interpreted as not showing acute infiltrate, pneumothorax, or congestive heart failure. Was pt. sent in by a medical professional or institution (VERONIQUE Castro, WATER AND SEWER SYSTEMS SUPERVISOR, urgent care, hospital, or penitentiary...) When possible be specific @ -[No] Did you speak to anyone other than the patient for history (EMS, parent, family, police, friend...)? What history was obtained from this source @ -[No] Did you review nursing and triage notes (agree or disagree)? Why? @ -[I reviewed and agree with nursing and triage notes] Were old charts reviewed (outside hosp., previous admission, EMS record, old EKG, old radiological studies, urgent care reports/EKG's, penitentiary records)? Report findings @ -[No old charts were reviewed] Differential Diagnosis (chest pain, altered mental status, abdominal pain women, abdominal pain men, vaginal bleeding, weakness, fever, dyspnea, syncope, headache, dizziness, GI bleed, back pain, seizure, CVA, palpatations, mental health, musculoskeletal)? @ -[Differential Chest Pain: Stable Angina, Unstable Angina, STEMI, NSTEMI Aortic Dissection, Pneumothorax, Musculoskeletal, Esophageal Spasm GERD, Cholecystitis, Pancreatitis, Zoster, this is not meant to be an all-inclusive list. EKG interpreted by me (3pts min.). @ -[As above] X-rays interpreted by me (1pt min.). @ -[As above CT interpreted by me (1pt min.). @ -[None done] U/S interpreted by me (1pt. min.). @ -[None done] What testing was considered but not performed or refused? (CT, X-rays, U/S, labs)? Why? @ -[None] What meds were considered but not given or refused? Why? @ -[None] Did you discuss the management of the patient with other professionals (professionals i.e. , PA, WATER AND SEWER SYSTEMS SUPERVISOR, lab, RT, psych nurse, social sciences chair, usability engineer, teacher, antisubmarine weapons officer, case finishing machine adjuster)? Give summary @ -[No] Was smoking cessation discussed for >3mins.? @ -[No] Was critical care preformed (if so, how long)? @ -[No] Were there social determinants of health that impacted care today? How? (Homelessness, low income, unemployed, alcoholism, drug addiction, transportation, low edu. Level, literacy, decrease access to med. care, fci, rehab)? @ -[No] Was there de-escalation of care discussed even if they declined (Discuss DNR or withdrawal of care, Hospice)? DNR status @ -[No] What co-morbidities impacted this encounter? (DM, HTN, Smoking, COPD, CAD, Cancer, CVA, ARF, Chemo, Hep., AIDS, mental health diagnosis, sleep apnea, morbid obesity)? @ -[None] Was patient admitted / discharged? Hospital course, mention meds given and route, prescriptions, significant lab abnormalities, going to OR and other pertinent info. @ -[Discharged Undiagnosed new problem with uncertain prognosis? @ -[No] Drug Therapy requiring intensive monitoring for toxicity (Heparin, Nitro, Insulin, Cardizem)? @ -[No] Were any procedures done? @ -[No] Diagnosis/symptom? @ -[Acute chest pain, uncomplicated Acute, or Chronic, or Acute on Chronic? @ -[default] Uncomplicated (without systemic symptoms) or Complicated (systemic symptoms)? @ -[default] Side effects of treatment? @ -[No] Exacerbation, Progression, or Severe Exacerbation? @ -[No] Poses a threat to life or bodily function? How? (Chest pain, [place], [place], pneumonia, PE, COPD, DKA, ARF, appy, cholecystitis, CVA, Diverticulitis, Homicidal, Suicidal, threat to staff... and all critical care pts) @ -[No] Disposition Clinical Impression: Chest pain Disposition: HOME SELF-CARE Condition: Good Instructions (If sedation given, give patient instructions): Chest Pain (ED) Is patient prescribed a controlled substance at d/c from ED?: No Referrals: Kim Burciaga MD [Primary Care Provider] - 1-2 days Wilmer Redman MD [STAFF PHYSICIAN] - 1-2 days
[2022-10-27 19:58] LABS: Basophils # (A) 0.1 k/uL (0-0.2); Basophils % (A) 1 %; Eosinophils # (A) 0.2 k/uL (0-0.7); Eosinophils % (A) 4 %; HCT 38.5 % (34.0-46.0); HGB 12.8 gm/dL (11.4-16.0); Lymphocytes # (A) 1.1 k/uL (1.0-4.8); Lymphocytes % (A) 17 %; MCH 31.1 pg (25.0-35.0); MCHC 33.1 g/dL (31.0-37.0); MCV 93.8 fL (80.0-100.0); Mean Platelet Volume 8.2; Monocytes # (A) 0.5 k/uL (0-1.0); Monocytes % (A) 7 %; Neutrophils # (A) 4.6 k/uL (1.3-7.7); Neutrophils % (A) 69 %; Platelet Count 212 k/uL (150-450); RBC 4.11 m/uL (3.80-5.40); RDW 15.6 % (11.5-15.5); WBC 6.6 k/uL (3.8-10.6)
--- NOTE | 2022-10-27 20:03 | XR ---
EXAMINATION TYPE: XR chest 2V DATE OF EXAM: 10/27/2022 COMPARISON: NONE HISTORY: Chest pain. TECHNIQUE: Frontal and lateral views of the chest are obtained. FINDINGS: There is no focal air space opacity, pleural effusion, or pneumothorax seen. The cardiac silhouette size is enlarged. The osseous structures are intact. IMPRESSION: Cardiomegaly without acute pulmonary process.
[2022-10-27 20:07] LABS: Partial Thromboplastin Time 25.3 sec (22.0-30.0); Prothrombin Time 10.9 sec (9.0-12.0)
[2022-10-27 20:09] LABS: Albumin 4.5 g/dL (3.5-5.0); Calcium 9.6 mg/dL (8.4-10.2); Magnesium 2.5 mg/dL (1.6-2.3); Potassium 3.6 mmol/L (3.5-5.1); Total Bilirubin 0.8 mg/dL (0.2-1.3); Total Protein 8.4 g/dL (6.3-8.2)
== END 2022-10-27 22:25 | disposition home or self-care (01) ==
LOC: EC 18:37
DX: R07.89 Other chest pain (principal); I48.91 Unspecified atrial fibrillation; I10 Essential (primary) hypertension; M19.90 Unspecified osteoarthritis, unspecified site; F32.A Depression, unspecified; Z87.891 Personal history of nicotine dependence; Z91.030 Bee allergy status; Z88.1 Allergy status to other antibiotic agents; Z79.01 Long term (current) use of anticoagulants; Z79.899 Other long term (current) drug therapy
CPT/HCPCS: 36415; 71046; 80053; 83735; 83880; 84484; 85025; 85610; 85730; 93005; 99285

== ENCOUNTER 2022-10-29 11:46 | Emergency (ER) | payer MEDICARE, OTHER ==
[2022-10-29 11:52] VITALS: BP 148/55; PULSE 68; RESP 20; TEMP 98
[2022-10-29] MEDS ORDERED: ACET/COD 300 MG/30 MG STARTER PACK 6 TAB BTL PO STA (12:10)
--- NOTE | 2022-10-29 12:11 | ED ---
General Adult HPI - General Chief complaint: Skin/Abscess/Foreign Body Stated complaint: rash Time Seen by Provider: 10/29/22 11:55 Source: patient, RN notes reviewed, old records reviewed Mode of arrival: ambulatory Limitations: no limitations - History of Present Illness Initial comments: 67-year-old female presents emergency Department with chief complaint of her rash. Patient states she had chest pain 2 days ago and was seen in the emergency department states that she developed a rash last night. Patient is concerned she may have shingles. Patient states rash is very painful and pain that wraps around her chest wall. No shortness breath no fevers chills no other complaints. - Related Data Home Medications Medication Instructions Recorded Confirmed atenoloL [Tenormin] 25 mg PO BID 03/16/14 10/12/22 Cholecalciferol [Vitamin D3 (25 1,000 unit PO DAILY 02/28/20 10/12/22 Mcg = 1000 Iu)] Cyanocobalamin (Vitamin B-12) 1,000 mcg PO DAILY 02/28/20 10/12/22 [Vitamin B-12] Amiodarone [Cordarone] 100 mg PO DAILY 10/07/22 10/12/22 Apixaban [Eliquis] 5 mg PO BID 10/07/22 10/12/22 Losartan Potassium 100 mg PO DAILY 10/07/22 10/12/22 Torsemide [Demadex] 20 mg PO DAILY 10/07/22 10/12/22 Unk Coq10 1 tab PO DAILY 10/07/22 10/12/22 Unk Tumeric 1 tab PO DAILY 10/07/22 10/12/22 hydrALAZINE HCL 50 mg PO BID 10/07/22 10/12/22 Previous Rx's Medication Instructions Recorded EPINEPHrine [Epipen 2-Josias] 0.3 mg IM ONCE PRN #1 ml 04/25/17 valACYclovir HCL [Valtrex] 1,000 mg PO TID #30 tablet 10/29/22 Allergies Allergy/AdvReac Type Severity Reaction Status Date / Time venom-honey bee Allergy Swelling Verified 10/29/22 11:52 ciprofloxacin [From Cipro] AdvReac Hallucinati Verified 10/29/22 11:52 ons Review of Systems ROS Statement: Those systems with pertinent positive or pertinent negative responses have been documented in the HPI. ROS Other: All systems not noted in ROS Statement are negative. Past Medical History Past Medical History: Atrial Fibrillation, Hypertension, Osteoarthritis (OA) Additional Past Medical History / Comment(s): takes statin as preventitive. has freqent + urine samples but no sx of uti. pt states they no longer give her abx. arthritis and bursitis to legs. eczema. falls alot pt states she is clumsy. History of Any Multi-Drug Resistant Organisms: None Reported Past Surgical History: Appendectomy, Joint Replacement, Tubal Ligation Additional Past Surgical History / Comment(s): cataracts, rt shoulder, cardioversion Past Anesthesia/Blood Transfusion Reactions: No Reported Reaction Past Psychological History: Depression Smoking Status: Former smoker Past Alcohol Use History: None Reported Past Drug Use History: None Reported - Past Family History Mother Family Medical History: AFIB Father Family Medical History: Congestive Heart Failure (CHF) Sister(s) Family Medical History: Cancer General Exam Limitations: no limitations General appearance: alert, in no apparent distress Head exam: Present: atraumatic, normocephalic, normal inspection Respiratory exam: Present: normal lung sounds bilaterally. Absent: respiratory distress, wheezes, rales, rhonchi, stridor Cardiovascular Exam: Present: regular rate, normal rhythm, normal heart sounds. Absent: systolic murmur, diastolic murmur, rubs, gallop, clicks Back exam: Present: full ROM. Absent: tenderness Neurological exam: Present: alert, oriented X3 Skin exam: Present: rash (Erythematous vesicular rash along the lateral portion of her left breast) Course Vital Signs 10/29/22 11:51 Temperature 98 F Pulse Rate 68 Respiratory 20 Rate Blood Pressure 148/55 O2 Sat by Pulse 96 Oximetry Medical Decision Making - Medical Decision Making Was pt. sent in by a medical professional or institution (, PA, ASSISTANT BRAND MANAGER, urgent care, hospital, or long-term...) When possible be specific @ -No Did you speak to anyone other than the patient for history (EMS, parent, family, police, friend...)? What history was obtained from this source @ -No Did you review nursing and triage notes (agree or disagree)? Why? @ -I reviewed and agree with nursing and triage notes Were old charts reviewed (outside hosp., previous admission, EMS record, old EKG, old radiological studies, urgent care reports/EKG's, long-term records)? Report findings @ -Reviewed recent ER records including labs, EKG and chest x-ray Differential Diagnosis (chest pain, altered mental status, abdominal pain women, abdominal pain men, vaginal bleeding, weakness, fever, dyspnea, syncope, headache, dizziness, GI bleed, back pain, seizure, CVA, palpatations, mental health, musculoskeletal)? @ -Shingles, dermatitis, cellulitis, ALLERGIC reaction, this this is not conclusive EKG interpreted by me (3pts min.). @ -None X-rays interpreted by me (1pt min.). @ -None done CT interpreted by me (1pt min.). @ -None done U/S interpreted by me (1pt. min.). @ -None done What testing was considered but not performed or refused? (CT, X-rays, U/S, labs)? Why? @ -None What meds were considered but not given or refused? Why? @ -None Did you discuss the management of the patient with other professionals (professionals i.e. , PA, ASSISTANT BRAND MANAGER, lab, RT, psych nurse, social welfare clerk, ichthyologist, teacher, aboriginal liaison officer, immigration case worker)? Give summary @ -No Was smoking cessation discussed for >3mins.? @ -No Was critical care preformed (if so, how long)? @ -No Were there social determinants of health that impacted care today? How? (Homelessness, low income, unemployed, alcoholism, drug addiction, transportation, low edu. Level, literacy, decrease access to med. care, prison, rehab)? @ -No Was there de-escalation of care discussed even if they declined (Discuss DNR or withdrawal of care, Hospice)? DNR status @ -No What co-morbidities impacted this encounter? (DM, HTN, Smoking, COPD, CAD, Cancer, CVA, ARF, Chemo, Hep., AIDS, mental health diagnosis, sleep apnea, morb id obesity)? @ -None Was patient admitted / discharged? Hospital course, mention meds given and route, prescriptions, significant lab abnormalities, going to OR and other pertinent info. @ -Discharge patient has a rash that is consistent with shingles. Patient started on Valtrex, provided pain relief. Undiagnosed new problem with uncertain prognosis? @ -No Drug Therapy requiring intensive monitoring for toxicity (Heparin, Nitro, Insulin, Cardizem)? @ -No Were any procedures done? @ -No Diagnosis/symptom? @ -Shingles Acute, or Chronic, or Acute on Chronic? @ -[Acute Uncomplicated (without systemic symptoms) or Complicated (systemic symptoms)? @ -Uncomplicated Side effects of treatment? @ -No Exacerbation, Progression, or Severe Exacerbation? @ -No Poses a threat to life or bodily function? How? (Chest pain, [place], MD, pneumonia, PE, COPD, DKA, ARF, appy, cholecystitis, CVA, Diverticulitis, Homicidal, Suicidal, threat to staff... and all critical care pts) @ -No Disposition Clinical Impression: Gerardo Disposition: HOME SELF-CARE Condition: Stable Instructions (If sedation given, give patient instructions): Gerardo (ED) Additional Instructions: Please return to the Emergency Department if symptoms worsen or any other genna rns. Prescriptions: valACYclovir HCL [Valtrex] 1,000 mg PO TID #30 tablet Is patient prescribed a controlled substance at d/c from ED?: No Referrals: Kim Burciaga MD [Primary Care Provider] - 1-2 days Time of Disposition: 12:11
== END 2022-10-29 12:44 | disposition home or self-care (01) ==
LOC: EC 11:46
DX: B02.9 Zoster without complications (principal); I10 Essential (primary) hypertension; I48.91 Unspecified atrial fibrillation; M19.90 Unspecified osteoarthritis, unspecified site; F32.A Depression, unspecified; Z87.891 Personal history of nicotine dependence; Z79.01 Long term (current) use of anticoagulants; Z79.899 Other long term (current) drug therapy; Z88.1 Allergy status to other antibiotic agents; Z91.030 Bee allergy status
CPT/HCPCS: 99283

== ENCOUNTER → 2023-07-21 | Outpatient (CLI) | payer MEDICARE, OTHER ==
--- NOTE | 2023-07-21 13:04 | MM ---
Reason for Exam: Screening (asymptomatic). Last screening mammogram was performed 12 month(s) ago. Patient History: Menarche at age 9. First Full-Term at age 18. Postmenopausal. Patient used Hormonal Contraceptives for 10 years. Maternal grandmother had breast cancer, age 48. Risk Values: Gricelda 5 year model risk: 1.7%. NCI Lifetime model risk: 5.2%. Prior Study Comparison: 02/11/2020 Bilateral Screening Mammogram, [facility]. 05/14/2021 Bilateral Screening Mammogram, [facility]. 07/01/2022 Bilateral MG 3D screening mammo w/cad, [facility]. Tissue Density: The breast tissue is almost entirely fat. Findings: Analyzed By CAD. There is no suspicious group of microcalcifications or new suspicious mass. Benign-appearing calcifications right breast. Grouped calcifications which are subtle in the right breast cc view posterior to the nipple anterior depth. Appearing consultations in the right breast also present. The left breast is without suspicious calcifications, distortions or masses. Overall Assessment: Incomplete: need additional imaging evaluation, BI-RAD 0 Management: Diagnostic Mammogram of the right breast. [facility] will attempt to contact patient to return for supplemental views and ultrasound if indicated. Patient should continue monthly self-breast exams. A clinical breast exam by your physician is recommended on an annual basis. This exam should not preclude additional follow-up of suspicious palpable abnormalities. Note on Gricelda scores and lifetime risk: 1. A Gricelda score greater than 3% is considered moderate risk. If this is the case, consider specialist referral to assess eligibility for a risk reducing agent. 2. If overall lifetime risk for the development of breast cancer is 20% or higher, the patient may qualify for future screening with alternating mammogram and breast MRI. Electronically signed and approved by: Steve Ng DO
== END | disposition home or self-care (01) ==
LOC: RADMAMWWP 10:26
PROVIDERS: ATTEND Internal Medicine
DX: Z12.31 Encounter for screening mammogram for malignant neoplasm of breast (principal); Z78.0 Asymptomatic menopausal state; Z80.3 Family history of malignant neoplasm of breast
CPT/HCPCS: 77063; 77067

== ENCOUNTER → 2023-07-31 | Outpatient (CLI) | payer MEDICARE, OTHER ==
--- NOTE | 2023-07-31 14:03 | MM ---
Reason for Exam: Additional evaluation requested from prior study. Last screening mammogram was performed less than 1 month ago. Patient History: Menarche at age 9. First Full-Term at age 18. Postmenopausal. Patient used Hormonal Contraceptives for 10 years. Maternal grandmother had breast cancer, age 48. Risk Values: Gricelda 5 year model risk: 1.7%. NCI Lifetime model risk: 5.2%. Tissue Density: Right: The breast tissue is heterogeneously dense. This may lower the sensitivity of mammography. Findings: Analyzed By CAD. There is a group of 5 round calcifications within the anterior left breast 2.1 cm from the nipple. On these appear grouped like sclerosing adenosis and are likely benign. Follow-up in 6 months with magnification views is recommended. Overall Assessment: Probably benign, BI-RAD 3 Management: Diagnostic Mammogram of the right breast in 6 months. A negative mammogram report should not preclude additional follow up of suspicious palpable abnormalities. Patient should continue monthly self breast exam. A clinical breast exam by your physician is recommended on an annual basis and results should be correlated with mammographic findings. Electronically signed and approved by: Otto Lincoln D.O. Radiologis
== END | disposition home or self-care (01) ==
LOC: RADMAMWWP 13:31
PROVIDERS: ATTEND Internal Medicine
DX: R92.331 Mammographic heterogeneous density, right breast (principal); Z78.0 Asymptomatic menopausal state; Z80.3 Family history of malignant neoplasm of breast
CPT/HCPCS: 77065; G0279; 77061

== ENCOUNTER → 2023-10-21 | Outpatient (CLI) | payer MEDICARE, OTHER ==
--- NOTE | 2023-10-26 11:56 | MR ---
EXAMINATION TYPE: MR hip LT wo con DATE OF EXAM: 10/21/2023 COMPARISON: None. HISTORY: Left hip pain and limited movement Standard multiplanar, multisequence MRI departmental protocol Multiplanar, multisequence images of the pelvis focusing on left hip were acquired without contrast. FINDINGS: Moderate axial joint space loss in both hips. Small symmetric joint effusions. Femoral head shapes are maintained bilaterally. No serpiginous diminished T1 signal to suggest avascular necrosis . No suspicious increased T2 signal or edema. Muscle bulk in the bilateral thighs is symmetric and felt within normal limits. No groin hernia or ad enopathy is seen. Urinary bladder appears within normal limits. Uterus is surgically absent or atrophic in appearance. No free fluid in the pelvis. No abnormal bowel dilatation. IMPRESSION: Moderate degenerative changes in both hips.
== END | disposition home or self-care (01) ==
LOC: RADMRIMAIN 08:22
PROVIDERS: ATTEND Orthopaedic Surgery
DX: M16.0 Bilateral primary osteoarthritis of hip (principal); M70.61 Trochanteric bursitis, right hip; M70.62 Trochanteric bursitis, left hip; M87.052 Idiopathic aseptic necrosis of left femur

== ENCOUNTER → 2024-01-04 | Outpatient (CLI) | payer MEDICARE ==
--- NOTE | 2024-01-08 15:34 | MM ---
Reason for Exam: Follow-up at short interval from prior study. Last screening mammogram was performed 6 month(s) ago. Patient History: Menarche at age 9. First Full-Term at age 18. Postmenopausal. Patient used Hormonal Contraceptives for 10 years. Maternal grandmother had breast cancer, age 48. Risk Values: Gricelda 5 year model risk: 1.7%. NCI Lifetime model risk: 5.0%. Prior Study Comparison: 07/01/2022 Bilateral MG 3D screening mammo w/cad, [facility]. 07/21/2023 Bilateral MG 3D screening mammo w/cad, [facility]. 07/31/2023 Right MG 3D work up w/cad RT, [facility]. Tissue Density: Right: There are scattered areas of fibroglandular density. Findings: Right breast pattern is stable. Benign vascular calcifications present. No suspicious groups of microcalcifications, spiculated or lobular masses, architectural distortion or other secondary signs of malignancy are mammographically apparent. Overall Assessment: Benign, BI-RAD 2 Management: Screening Mammogram of both breasts in 6 months. A negative mammogram report should not preclude additional follow up of suspicious palpable abnormalities. Patient should continue monthly self breast exam. A clinical breast exam by your physician is recommended on an annual basis and results should be correlated with mammographic findings. Note on Gricelda scores and lifetime risk: 1. A Gricelda score greater than 3% is considered moderate risk. If this is the case, consider specialist referral to assess eligibility for a risk reducing agent. 2. If overall lifetime risk for the development of breast cancer is 20% or higher, the patient may qualify for future screening with alternating mammogram and breast MRI. Electronically signed and approved by: Otto Lincoln D.O. Radiologis
== END | disposition home or self-care (01) ==
LOC: RADMAMWWP 12:15
PROVIDERS: ATTEND Internal Medicine
DX: R92.321 Mammographic fibroglandular density, right breast (principal); R92.1 Mammographic calcification found on diagnostic imaging of breast; R92.8 Other abnormal and inconclusive findings on diagnostic imaging of breast; Z80.3 Family history of malignant neoplasm of breast; Z78.0 Asymptomatic menopausal state
CPT/HCPCS: 77065; G0279; 77061

== ENCOUNTER 2024-01-19 22:21 | Emergency (ER) | payer MEDICARE, OTHER ==
[2024-01-19 22:28] VITALS: RESP 18; TEMP 97.7
--- NOTE | 2024-01-19 23:28 | ED ---
Lower Extremity Injury HPI - General Chief Complaint: Extremity Injury, Lower Stated Complaint: R Foot Injury Time Seen by Provider: 01/19/24 22:30 Source: patient Mode of arrival: ambulatory Limitations: no limitations - History of Present Illness Initial Comments: Patient is a 68-year-old woman who presents for evaluation of her right ankle. The patient states that she had dropped a ramp that leads to her shed onto her ankle. She states the pain is worse with attempting to stand or move her ankle. She tried taking [place] at home without much change in the pain. MD Complaint: ankle injury -: hour(s) Injury: Ankle: Right Type of Injury: blunt Place: street/outdoors Severity: severe Improves With: immobilization Worsens With: weight bearing, movement, palpation Context: direct blow Treatments Prior to Arrival: other ([place]) - Related Data Home Medications Medication Instructions Recorded Confirmed atenoloL [Tenormin] 25 mg PO BID 03/16/14 10/12/22 Cholecalciferol [Vitamin D3 (25 1,000 unit PO DAILY 02/28/20 10/12/22 Mcg = 1000 Iu)] Cyanocobalamin (Vitamin B-12) 1,000 mcg PO DAILY 02/28/20 10/12/22 [Vitamin B-12] Amiodarone [Cordarone] 100 mg PO DAILY 10/07/22 10/12/22 Apixaban [Eliquis] 5 mg PO BID 10/07/22 10/12/22 Losartan Potassium 100 mg PO DAILY 10/07/22 10/12/22 Torsemide [Demadex] 20 mg PO DAILY 10/07/22 10/12/22 Unk Coq10 1 tab PO DAILY 10/07/22 10/12/22 Unk Tumeric 1 tab PO DAILY 10/07/22 10/12/22 hydrALAZINE HCL 50 mg PO BID 10/07/22 10/12/22 Previous Rx's Medication Instructions Recorded EPINEPHrine [Epipen 2-Josias] 0.3 mg IM ONCE PRN #1 ml 04/25/17 valACYclovir HCL [Valtrex] 1,000 mg PO TID #30 tablet 10/29/22 Allergies Allergy/AdvReac Type Severity Reaction Status Date / Time venom-honey bee Allergy Swelling Verified 01/19/24 22:28 ciprofloxacin [From Cipro] AdvReac Hallucinati Verified 01/19/24 22:28 ons Review of Systems ROS Statement: Those systems with pertinent positive or pertinent negative responses have been documented in the HPI. ROS Other: All systems not noted in ROS Statement are negative. Constitutional: Denies: weakness Cardiovascular: Denies: chest pain, palpitations Musculoskeletal: Reports: as per HPI, joint swelling, arthralgia Skin: Denies: rash, lesions Neurological: Denies: weakness, numbness, paresthesias Past Medical History Past Medical History: Atrial Fibrillation, Hypertension, Osteoarthritis (OA) Additional Past Medical History / Comment(s): takes statin as preventitive. has freqent + urine samples but no sx of uti. pt states they no longer give her abx. arthritis and bursitis to legs. eczema. falls alot pt states she is clumsy. History of Any Multi-Drug Resistant Organisms: None Reported Past Surgical History: Appendectomy, Joint Replacement, Tubal Ligation Additional Past Surgical History / Comment(s): cataracts, rt shoulder, cardiove rsion Past Anesthesia/Blood Transfusion Reactions: No Reported Reaction Past Psychological History: Depression Smoking Status: Former smoker Past Alcohol Use History: None Reported Past Drug Use History: None Reported - Past Family History Mother Family Medical History: AFIB Father Family Medical History: Congestive Heart Failure (CHF) Sister(s) Family Medical History: Cancer General Exam Limitations: no limitations General appearance: alert, in no apparent distress Right Lower Leg exam: Present: normal inspection, full ROM. Absent: tenderness, swelling Ankle exam: Present: tenderness, swelling, ecchymosis. Absent: full ROM, ab rasion, laceration, deformity, dislocation, erythema Foot/Toe exam: Present: normal inspection, tenderness, swelling. Absent: full ROM, abrasion, laceration, deformity, crepitus, dislocation Neurovascular tendon exam: Present: no vascular compromise. Absent: pulse deficit, abnormal cap refill, motor deficit, sensory deficit, tendon deficit Neurological exam: Present: alert. Absent: motor sensory deficit Skin exam: Present: warm, dry, intact, normal color. Absent: rash Course Vital Signs 01/19/24 01/20/24 22:25 01:33 Temperature 97.7 F Pulse Rate 71 98 Respiratory 18 18 Rate Blood Pressure 166/68 156/75 O2 Sat by Pulse 99 97 Oximetry Medical Decision Making - Medical Decision Making The patient had x-ray of the lower extremity that I interpreted as negative for acute fracture or dislocation Was pt. sent in by a medical professional or institution (VERONIQUE Castro, HOST/HOSTESS HEAD, urgent care, hospital, or [facility]...) When possible be specific @ -[No] Did you speak to anyone other than the patient for history (EMS, parent, family, police, friend...)? What history was obtained from this source @ -[No] Did you review nursing and triage notes (agree or disagree)? Why? @ -[I reviewed and agree with nursing and triage notes] Were old charts reviewed (outside hosp., previous admission, EMS record, old EKG, old radiological studies, urgent care reports/EKG's, [facility] records)? Report findings @ -[No old charts were reviewed] Differential Diagnosis (chest pain, altered mental status, abdominal pain women, abdominal pain men, vaginal bleeding, weakness, fever, dyspnea, syncope, headache, dizziness, GI bleed, back pain, seizure, CVA, palpatations, mental health, musculoskeletal)? @ -[Differential Musculoskeletal Muscular strain, contusion, ligament sprain, fracture, arthritis, septic arthritis, bursitis, cellulitis, muscle spasm, nerve compression, DVT, arterial occlusion, herpes zoster, electrolyte abnormality, tumor.... This is not meant to be in all inclusive list EKG interpreted by me (3pts min.). @ -[As above] X-rays interpreted by me (1pt min.). @ -[I interpreted as above CT interpreted by me (1pt min.). @ -[None done] U/S interpreted by me (1pt. min.). @ -[None done] What testing was considered but not performed or refused? (CT, X-rays, U/S, labs)? Why? @ -[None] What meds were considered but not given or refused? Why? @ -[None] Did you discuss the management of the patient with other professionals (professionals i.e. VERONIQUE Castro, HOST/HOSTESS HEAD, lab, RT, psych nurse, social worker delinquency prevention, stone splitter, teacher, child support case officer, lining caser)? Give summary @ -[No] Was smoking cessation discussed for >3mins.? @ -[No] Was critical care preformed (if so, how long)? @ -[No] Were there social determinants of health that impacted care today? How? (Home lessness, low income, unemployed, alcoholism, drug addiction, transportation, low edu. Level, literacy, decrease access to med. care, assisted, rehab)? @ -[No] Was there de-escalation of care discussed even if they declined (Discuss DNR or withdrawal of care, Hospice)? DNR status @ -[No] What co-morbidities impacted this encounter? (DM, HTN, Smoking, COPD, CAD, Cancer, CVA, ARF, Chemo, Hep., AIDS, mental health diagnosis, sleep apnea, morbid obesity)? @ -[None] Was patient admitted / discharged? Hospital course, mention meds given and route, prescriptions, significant lab abnormalities, going to OR and other pertinent info. @ -[hospital course] Undiagnosed new problem with uncertain prognosis? @ -[No] Drug Therapy requiring intensive monitoring for toxicity (Heparin, Nitro, Insulin, Cardizem)? @ -[No] Were any procedures done? @ -[No] Diagnosis/symptom? @ -[Acute ankle sprain Contusion Acute, or Chronic, or Acute on Chronic? @ -[Acute Uncomplicated (without systemic symptoms) or Complicated (systemic symptoms)? @ -[Uncomplicated Side effects of treatment? @ -[No] Exacerbation, Progression, or Severe Exacerbation? @ -[No] Poses a threat to life or bodily function? How? (Chest pain, [place], [place], pneumonia, PE, COPD, DKA, ARF, appy, cholecystitis, CVA, Diverticulitis, Homicidal, Suicidal, threat to staff... and all critical care pts) @ -[No] Disposition Clinical Impression: Contusion, Ankle sprain Disposition: HOME SELF-CARE Condition: Good Instructions (If sedation given, give patient instructions): Ankle Sprain (ED), Contusion in Adults (ED) Is patient prescribed a controlled substance at d/c from ED?: No Referrals: Kim Burciaga MD [Primary Care Provider] - 1-2 days
--- NOTE | 2024-01-19 23:42 | XR ---
EXAMINATION TYPE: XR ankle complete RT DATE OF EXAM: 01/19/2024 CLINICAL HISTORY: Ankle injury with pain and swelling TECHNIQUE: Frontal, lateral and oblique images of the right ankle are obtained. COMPARISON: None. FINDINGS: Osseous structures are demineralized. There is no acute fracture/dislocation evident in th e right ankle. Nonspecific periostitis along the medial aspect of the distal tibia is seen. Tiny infe rior calcaneal spur. The ankle mortise appears within normal limits. The overlying soft tissue appea rs unremarkable. IMPRESSION: There is no acute fracture or dislocation in the right ankle.
[2024-01-20] MEDS: traMADol 50 MG STARTER PACK 3 TAB BTL PO STA (01:25)
[2024-01-20] MEDS: MORPHINE SULFATE 4 MG/ML SYRINGE IM STA (01:26)
[2024-01-20 01:34] VITALS: BP 156/75; PULSE 98
== END 2024-01-20 01:34 | disposition home or self-care (01) ==
LOC: EC 22:21
DX: S93.401A Sprain of unspecified ligament of right ankle, initial encounter (principal); W18.42XA Slipping, tripping and stumbling without falling due to stepping into hole or opening, initial encounter; Z87.891 Personal history of nicotine dependence; Z91.030 Bee allergy status; Z88.1 Allergy status to other antibiotic agents
CPT/HCPCS: 73610; 99283; 96372; L4350; J2270

== ENCOUNTER 2024-05-06 10:11 | Day surgery (SDC) | payer MEDICARE ==
[~2024-05-06 10:11] MED LIST: LIDOCAINE 1% (10MG/ML) FOR IV START INTRADERMA PRN
[2024-05-06] MEDS: IV FLUID CONTINUATION 1,000 ML IV ONE (10:29)
[2024-05-06] MEDS: LACTATED RINGERS 1,000 ML IV SCH (10:30)
[2024-05-06 10:37] VITALS: TEMP 97.4
[2024-05-06] MEDS ORDERED: PROPOFOL 10 MG/ML 20 ML VIAL IV ONE (10:51)
[2024-05-06] MEDS ORDERED: GLYCOPYRROLATE 0.2 MG/ML 2 ML VIAL ONE (10:51)
[2024-05-06] MEDS ORDERED: LIDOCAINE 1% INJ 10MG/ML (20 ML MDV) ONE (10:51)
--- NOTE | 2024-05-06 12:39 | P.PCN ---
Date of Procedure: 05/06/24 Preoperative Diagnosis: Positive Cologuard Postoperative Diagnosis: Diverticulosis Poor prep Procedure(s) Performed: Colonoscopy Anesthesia: MAC Surgeon: Juan Pablo Lal Pathology: none sent Condition: stable Disposition: same day Indications for Procedure: 68-year-old female presents for colonoscopy. She had recent positive Cologuard finding. Denies blood in her stool. Denies family history of colon cancer. Operative Findings: Overall normal-appearing colon with diverticulosis. There were portions of the colon that were not visualized secondary to poor prep Description of Procedure: The patient was brought to the endoscopy suite and placed in left lateral decubitus position and adequate sedation was achieved using conscious sedation. A digital rectal exam was performed and mild internal hemorrhoids were palpated. An endoscope was then placed in the rectum and advanced to the cecum as identified by landmarks including the appendiceal orifice and the ileocecal valve. The prep was fair in some portions of the colon and poor and others. The colonoscope was then slowly withdrawn, examining for any mucosal abnormalities. The cecum, ascending, transverse, descending and sigmoid colon were visualized. Portions of the colon were not visualized adequately. The portions that were visualized adequately showed no large masses or polyps. Diverticulosis was noted. Retroflexion was performed the rectum and mild internal hemorrhoids were visible. Excess air was removed. The colonoscope withdrawn and procedure terminated. The patient was then transferred to recovery unit in stable condition. Repeat colonoscopy should be performed in 6 months to 1 year for better preparation.
[2024-05-06 13:09] VITALS: BP 180/82; PULSE 61; RESP 18
== END 2024-05-06 13:17 | disposition home or self-care (01) ==
LOC: ORWHC2ENDO 10:11
PROVIDERS: ATTEND Surgery
CPT/HCPCS: 45378

== ENCOUNTER 2024-06-20 11:22 | Inpatient (IN) | payer MEDICARE ==
--- NOTE | 2024-06-20 12:30 | ED ---
General Adult HPI - General Chief complaint: Abdominal Pain Stated complaint: R side abdomen pain Time Seen by Provider: 06/20/24 11:40 Source: patient, RN notes reviewed Mode of arrival: ambulatory Limitations: no limitations - History of Present Illness Initial comments: 68-year-old female presents to the emergency department for evaluation of right sided abdominal pain. Patient reports that this started last night. She notes that it is sharp pains in her abdomen that last for around 30 seconds at a time. She states that it does not radiate. She notes that this happened multiple times. She also reports that this has happened after she drank soda and ate some stuffing. She denies any recent fever, chills. She does admit to nausea and dry heaves without vomiting. She reports a normal bowel movement today. Denies any chest pains, shortness of breath. - Related Data Home Medications Medication Instructions Recorded Confirmed atenoloL [Tenormin] 25 mg PO BID 03/16/14 06/20/24 Cyanocobalamin (Vitamin B-12) 1,000 mcg PO DAILY 02/28/20 06/20/24 [Vitamin B-12] Amiodarone [Cordarone] 100 mg PO DAILY 10/07/22 06/20/24 Apixaban [Eliquis] 5 mg PO BID 10/07/22 06/20/24 Losartan Potassium 100 mg PO DAILY 10/07/22 06/20/24 Torsemide [Demadex] 20 mg PO Q48H 10/07/22 06/20/24 hydrALAZINE HCL 50 mg PO BID 10/07/22 06/20/24 Rosuvastatin [Crestor] 20 mg PO DAILY 05/02/24 06/20/24 allopurinoL 100 mg PO DAILY 05/02/24 06/20/24 Cholecalciferol (Vitamin D3) 50 mcg PO DAILY 06/20/24 06/20/24 [Vitamin D3 (50 Mcg = 2000 Iu)] Iron 45mg 1 tab PO HS 06/20/24 06/20/24 Turmeric 538mg 1 cap PO DAILY 06/20/24 06/20/24 Allergies Allergy/AdvReac Type Severity Reaction Status Date / Time diclofenac Allergy Anaphylaxis Verified 06/20/24 15:06 venom-honey bee Allergy Swelling Verified 06/20/24 15:06 ciprofloxacin [From Cipro] AdvReac Hallucinati Verified 06/20/24 15:06 ons Review of Systems ROS Statement: Those systems with pertinent positive or pertinent negative responses have been documented in the HPI. ROS Other: All systems not noted in ROS Statement are negative. Past Medical History Past Medical History: Atrial Fibrillation, Hyperlipidemia, Hypertension, Osteoarthritis (OA), Renal Disease, Skin Disorder Additional Past Medical History / Comment(s): eczema. nery hip arthritis, bursitis, and pain. pt states falls frequently, uses a walker but loses balance with dizziness and lightheadedness- last fall 2 days ago, pt states no injury. chronic kidney disease stage 3B History of Any Multi-Drug Resistant Organisms: None Reported Past Surgical History: Appendectomy, Orthopedic Surgery, Tubal Ligation Additional Past Surgical History / Comment(s): cataracts, rt shoulder surg, cardioversion Past Anesthesia/Blood Transfusion Reactions: No Reported Reaction Past Psychological History: No Psychological Hx Reported Smoking Status: Former smoker - Past Family History Mother Family Medical History: AFIB Father Family Medical History: Congestive Heart Failure (CHF) Sister(s) Family Medical History: Cancer General Exam Limitations: no limitations General appearance: alert, in no apparent distress Head exam: Present: atraumatic, normocephalic, normal inspection Eye exam: Present: normal appearance, PERRL, EOMI. Absent: scleral icterus, conjunctival injection, periorbital swelling ENT exam: Present: normal exam, mucous membranes moist Neck exam: Present: normal inspection. Absent: tenderness, meningismus, lymphadenopathy Respiratory exam: Present: normal lung sounds bilaterally. Absent: respiratory distress, wheezes, rales, rhonchi, stridor Cardiovascular Exam: Present: normal rhythm, bradycardia GI/Abdominal exam: Present: soft, tenderness (RUQ), normal bowel sounds. Absent: distended, guarding, rebound, rigid Extremities exam: Present: normal inspection, full ROM, normal capillary refill. Absent: tenderness, pedal edema, joint swelling, calf tenderness Neurological exam: Present: alert, oriented X3 Psychiatric exam: Present: normal affect, normal mood Skin exam: Present: warm, dry, intact, normal color. Absent: rash Course Vital Signs 06/20/24 06/20/24 06/20/24 11:37 13:47 15:40 Temperature 97.3 F L Pulse Rate 58 L 59 L 57 L Respiratory 20 20 20 Rate Blood Pressure 124/55 160/65 156/55 O2 Sat by Pulse 99 97 99 Oximetry 06/20/24 17:34 Temperature Pulse Rate 58 L Respiratory 20 Rate Blood Pressure 146/84 O2 Sat by Pulse 97 Oximetry Medical Decision Making - Medical Decision Making Was pt. sent in by a medical professional or institution (, PA, LINEN KEEPER, urgent care, hospital, or care home...) When possible be specific @ -No Did you speak to anyone other than the patient for history (EMS, parent, family, police, friend...)? What history was obtained from this source @ -No Did you review nursing and triage notes (agree or disagree)? Why? @ -I reviewed and agree with nursing and triage notes Were old charts reviewed (outside hosp., previous admission, EMS record, old EKG, old radiological studies, urgent care reports/EKG's, care home records)? Report findings @ -No old charts were reviewed Differential Diagnosis (chest pain, altered mental status, abdominal pain women, abdominal pain men, vaginal bleeding, weakness, fever, dyspnea, syncope, headache, dizziness, GI bleed, back pain, seizure, CVA, palpatations, mental health, musculoskeletal)? @ -Differential Abdominal Pain Women: Appendicitis, Cholecystitis, diverticulosis, ischemic bowel, pancreatitis, hepatitis, UTI, gastroenteritis, AAA, incarcerated hernia, bowel obstruction, constipation, inflammatory bowel, hepatitis, peptic ulcer disease, splenic infarction, perforated viscus, vulvitis, ovarian torsion, PID, kidney stone, placenta abruption, this is not meant to be an all-inclusive list EKG interpreted by me (3pts min.). @ -EKG at 1245 shows sinus bradycardia rate 54, HI 217, QRS 98, QT/QTc [id number] X-rays interpreted by me (1pt min.). @ -Chest x-ray shows no acute process CT interpreted by me (1pt min.). @ -CT abdomen pelvis shows Nondependent gas within the anterior portion of the urinary bladder, no other acute abnormality U/S interpreted by me (1pt. min.). @ -None done What testing was considered but not performed or refused? (CT, X-rays, U/S, labs)? Why? @ -None What meds were considered but not given or refused? Why? @ -None Did you discuss the management of the patient with other professionals (professionals i.e. , PA, LINEN KEEPER, lab, RT, psych nurse, sr. social media & mobile manager, image scientist, teacher, police officer, dependency case manager)? Give summary @ -Case discussed with Dr. Nesbitt who is accepting of the admission Was smoking cessation discussed for >3mins.? @ -No Was critical care preformed (if so, how long)? @ -No Were there social determinants of health that impacted care today? How? (Homelessness, low income, unemployed, alcoholism, drug addiction, transportation, low edu. Level, literacy, decrease access to med. care, [place] [facility], rehab)? @ -No Was there de-escalation of care discussed even if they declined (Discuss DNR or withdrawal of care, Hospice)? DNR status @ -No What co-morbidities impacted this encounter? (DM, HTN, Smoking, COPD, CAD, Cancer, CVA, ARF, Chemo, Hep., AIDS, mental health diagnosis, sleep apnea, morbid obesity)? @ -None Was patient admitted / discharged? Hospital course, mention meds given and route, prescriptions, significant lab abnormalities, going to OR and other pe rtinent info. @ -Admitted. Patient presented to the emergency department for evaluation of right-sided abdominal pain. Laboratory studies obtained No significant leukocytosis, hemoglobin 10.8. CMP significant for BUN of 36, creatinine 2.46 which is significantly elevated from prior. UA obtained reveals trace blood, large leukocyte esterase, 111 WBC, moderate urine bacteria. Patient underwent a CT abdomen pelvis without contrast revealing nondependent gas within the anterior portion of the urinary bladder. No other acute abnormalities identified. Patient given 500 cc bolus and started on slow maintenance fluids. Patient will be admitted to the hospital for IRISH, UTI. She is placed on Rocephin. I discussed case with Dr. Nesbitt is accepting of the admission. Urology consultation placed. Discussed findings with patient and she is understanding agreeable with plan. Patient stable at time of admission. Case discussed with Dr. Rich Undiagnosed new problem with uncertain prognosis? @ -No Drug Therapy requiring intensive monitoring for toxicity (Heparin, Nitro, Insulin, Cardizem)? @ -No Were any procedures done? @ -No Diagnosis/symptom? @ -IRISH, UTI Acute, or Chronic, or Acute on Chronic? @ -acute Uncomplicated (without systemic symptoms) or Complicated (systemic symptoms)? @ -uncomplicated Side effects of treatment? @ -No Exacerbation, Progression, or Severe Exacerbation? @ -No Poses a threat to life or bodily function? How? (Chest pain, [place], [place], pneumonia, PE, COPD, DKA, ARF, appy, cholecystitis, CVA, Diverticulitis, Homicidal, Suicidal, threat to staff... and all critical care pts) @ -No - Lab Data Result diagrams: 06/22/24 04:30 06/22/24 04:30 Lab Results 06/20/24 06/20/24 06/20/24 Range/Units 12:36 12:36 12:36 WBC 8.8 (3.8-10.6) k/uL RBC 3.24 L (3.80-5.40) m/uL Hgb 10.8 L (11.4-16.0) gm/dL Hct 32.7 L (34.0-46.0) % MCV 101.1 H (80.0-100.0) fL MCH 33.3 (25.0-35.0) pg MCHC 33.0 (31.0-37.0) g/dL RDW 14.6 (11.5-15.5) % Plt Count 235 (150-450) k/uL MPV 8.1 Neutrophils % 81 % Lymphocytes % 9 % Monocytes % 7 % Eosinophils % 1 % Basophils % 0 % Neutrophils # 7.1 (1.3-7.7) k/uL Lymphocytes # 0.8 L (1.0-4.8) k/uL Monocytes # 0.6 (0-1.0) k/uL Eosinophils # 0.1 (0-0.7) k/uL Basophils # 0.0 (0-0.2) k/uL Macrocytosis Slight PT 11.2 (10.0-12.5) sec INR 1.0 (<1.2) APTT 27.4 (22.0-30.0) sec Sodium (137-145) mmol/L Potassium (3.5-5.1) mmol/L Chloride (98-107) mmol/L Carbon Dioxide (22-30) mmol/L Anion Gap mmol/L BUN (7-17) mg/dL Creatinine (0.52-1.04) mg/dL Est GFR (CKD-EPI)AfAm (>60 ml/min/1.73 sqM) Est GFR (CKD-EPI)NonAf (>60 ml/min/1.73 sqM) Glucose (74-99) mg/dL Plasma Lactic Acid Joni (0.7-2.0) mmol/L Calcium (8.4-10.2) mg/dL Total Bilirubin (0.2-1.3) mg/dL AST (14-36) U/L ALT (4-34) U/L Alkaline Phosphatase (38-126) U/L Total Protein (6.3-8.2) g/dL Albumin (3.5-5.0) g/dL Amylase (30-110) U/L Lipase (23-300) U/L Urine Color Colorless Urine Appearance Cloudy H (Clear) Urine pH 6.5 (5.0-8.0) Ur Specific [place] 1.013 (1.001-1.035) Urine Protein 1+ H (Negative) Urine Glucose (UA) Negative (Negative) Urine Ketones Negative (Negative) Urine Blood Trace H (Negative) Urine Nitrite Negative (Negative) Urine Bilirubin Negative (Negative) Urine Urobilinogen <2.0 (<2.0) mg/dL Ur Leukocyte Esterase Large H (Negative) Urine RBC 1 (0-5) /hpf Urine WBC 111 H (0-5) /hpf Ur Squamous Epith Cells 6 H (0-4) /hpf Urine Bacteria Moderate H (None) /hpf Urine Mucus Rare H (None) /hpf 06/20/24 06/20/24 Range/Units 12:36 12:36 WBC (3.8-10.6) k/uL RBC (3.80-5.40) m/uL Hgb (11.4-16.0) gm/dL Hct (34.0-46.0) % MCV (80.0-100.0) fL MCH (25.0-35.0) pg MCHC (31.0-37.0) g/dL RDW (11.5-15.5) % Plt Count (150-450) k/uL MPV Neutrophils % % Lymphocytes % % Monocytes % % Eosinophils % % Basophils % % Neutrophils # (1.3-7.7) k/uL Lymphocytes # (1.0-4.8) k/uL Monocytes # (0-1.0) k/uL Eosinophils # (0-0.7) k/uL Basophils # (0-0.2) k/uL Macrocytosis PT (10.0-12.5) sec INR (<1.2) APTT (22.0-30.0) sec Sodium 136 L (137-145) mmol/L Potassium 4.6 (3.5-5.1) mmol/L Chloride 104 (98-107) mmol/L Carbon Dioxide 25 (22-30) mmol/L Anion Gap 7 mmol/L BUN 36 H (7-17) mg/dL Creatinine 2.46 H (0.52-1.04) mg/dL Est GFR (CKD-EPI)AfAm 22 (>60 ml/min/1.73 sqM) Est GFR (CKD-EPI)NonAf 19 (>60 ml/min/1.73 sqM) Glucose 100 H (74-99) mg/dL Plasma Lactic Acid Joni 0.8 (0.7-2.0) mmol/L Calcium 9.7 (8.4-10.2) mg/dL Total Bilirubin 0.8 (0.2-1.3) mg/dL AST 31 (14-36) U/L ALT 27 (4-34) U/L Alkaline Phosphatase 100 (38-126) U/L Total Protein 7.1 (6.3-8.2) g/dL Albumin 4.1 (3.5-5.0) g/dL Amylase 42 (30-110) U/L Lipase 91 (23-300) U/L Urine Color Urine Appearance (Clear) Urine pH (5.0-8.0) Ur Specific [place] (1.001-1.035) Urine Protein (Negative) Urine Glucose (UA) (Negative) Urine Ketones (Negative) Urine Blood (Negative) Urine Nitrite (Negative) Urine Bilirubin (Negative) Urine Urobilinogen (<2.0) mg/dL Ur Leukocyte Esterase (Negative) Urine RBC (0-5) /hpf Urine WBC (0-5) /hpf Ur Squamous Epith Cells (0-4) /hpf Urine Bacteria (None) /hpf Urine Mucus (None) /hpf Disposition Clinical Impression: UTI (urinary tract infection), IRISH (acute kidney injury) Disposition: ADMITTED IP TO THIS [facility] Condition: Stable Is patient prescribed a controlled substance at d/c from ED?: No
[2024-06-20 12:46] LABS: Basophils % (A) 0 %; Eosinophils # (A) 0.1 k/uL (0-0.7); Eosinophils % (A) 1 %; HCT 32.7 % (34.0-46.0); HGB 10.8 gm/dL (11.4-16.0); Lymphocytes # (A) 0.8 k/uL (1.0-4.8); Lymphocytes % (A) 9 %; MCH 33.3 pg (25.0-35.0); MCV 101.1 fL (80.0-100.0); Macrocytosis Slight; Mean Platelet Volume 8.1; Monocytes # (A) 0.6 k/uL (0-1.0); Monocytes % (A) 7 %; Neutrophils # (A) 7.1 k/uL (1.3-7.7); Neutrophils % (A) 81 %; Platelet Count 235 k/uL (150-450); RBC 3.24 m/uL (3.80-5.40); RDW 14.6 % (11.5-15.5); WBC 8.8 k/uL (3.8-10.6)
[2024-06-20 12:50] LABS: Appearance,Urine Cloudy (Clear); Bacteria,Urine Moderate /hpf; Bilirubin,Urine Negative (Negative); Blood,Urine Trace (Negative); Color,Urine Colorless; Glucose,Urine (UA) Negative (Negative); Ketones,Urine Negative (Negative); Leukocyte Esterase,Urine Large (Negative); Mucus,Urine Rare /hpf; Nitrite,Urine Negative (Negative); PH, Urine 6.5 (5.0-8.0); Protein,Urine 1+ (Negative); RBC,Urine 1 /hpf (0-5); Specific Gravity,Urine 1.013 (1.001-1.035); Squamous Epithelial Cell,Urine 6 /hpf (0-4); Urobilinogen,Urine <2.0 mg/dL (<2.0); WBC,Urine 111 /hpf (0-5)
[2024-06-20 12:55] LABS: Partial Thromboplastin Time 27.4 sec (22.0-30.0); Prothrombin Time 11.2 sec (10.0-12.5)
--- NOTE | 2024-06-20 12:56 | XR ---
EXAMINATION TYPE: XR chest 2V DATE OF EXAM: 06/20/2024 12:50 PM COMPARISON: Chest radiographs from 10/27/2022 CLINICAL INDICATION: Female, 68 years old with history of abdominal pain; TECHNIQUE: XR chest 2V Frontal and lateral views of the chest. FINDINGS: Lungs/Pleura: There is flattening of the diaphragm with increased lucency of the lungs. No evidence o f pneumothorax, pleural effusion or focal consolidation. Pulmonary vascularity: Unremarkable. Heart/mediastinum: Cardiomediastinal silhouette is unremarkable. Musculoskeletal: No acute osseous pathology. IMPRESSION: 1. No acute cardiopulmonary disease process. 2. COPD changes. [facility], , 06/20/2024 12:54 PM
[2024-06-20 12:58] LABS: ALT 27 U/L (4-34); AST 31 U/L (14-36); African American GFR (CKD) 22 (>60 ml/min/1.73 sqM); Albumin 4.1 g/dL (3.5-5.0); Alkaline Phosphatase 100 U/L (38-126); Amylase 42 U/L (30-110); Anion Gap 7 mmol/L; Blood Urea Nitrogen 36 mg/dL (7-17); Calcium 9.7 mg/dL (8.4-10.2); Carbon Dioxide 25 mmol/L (22-30); Chloride 104 mmol/L (98-107); Glucose 100 mg/dL (74-99); Lipase 91 U/L (23-300); Non-African American GFR(CKD) 19 (>60 ml/min/1.73 sqM); Potassium 4.6 mmol/L (3.5-5.1); Sodium 136 mmol/L (137-145); Total Bilirubin 0.8 mg/dL (0.2-1.3); Total Protein 7.1 g/dL (6.3-8.2)
--- NOTE | 2024-06-20 14:12 | CT ---
EXAMINATION TYPE: CT abdomen pelvis wo con DATE OF EXAM: 06/20/2024 2:03 PM COMPARISON: None available. CLINICAL INDICATION: Female, 68 years old with history of RUQ pain; RUQ pain TECHNIQUE: Axial CT abdomen pelvis wo con;Sagittal and coronal reformats were created on a separate workstation. Oral contrast used: without Oral Contrast CT DLP: 480.2 mGycm, Automated exposure control for dose reduction was used. FINDINGS: LOWER CHEST: Unremarkable ABDOMEN LIVER: Unremarkable GALLBLADDER AND BILE DUCTS: Unremarkable. PANCREAS: Unremarkable. SPLEEN: Unremarkable. ADRENAL GLANDS: Unremarkable. KIDNEYS AND URETERS: Right renal atrophy and probable scarring defects. No hydronephrosis bilaterally . PELVIS BLADDER: No evidence for wall thickening or mass given limitations of exam. Nondependent gas in the a nterior urinary bladder lumen. REPRODUCTIVE: Unremarkable. ABDOMEN & PELVIS STOMACH AND BOWEL: Stomach and duodenum are unremarkable No evidence of bowel obstruction. PERITONEUM/RETROPERITONEUM: No evidence of pneumoperitoneum or free fluid. VASCULATURE: No evidence of aortic aneurysm. MUSCULOSKELETAL: No acute osseous abnormalities. Osseous structures demineralized. Lumbosacral spinal degenerative changes. Grade 1 anterolisthesis of L4-L5 and L5 on S1. LYMPH NODES: No gross evidence for lymphadenopathy. SOFT TISSUE/ABDOMINAL WALL: Unremarkable IMPRESSION: Nondependent gas within the nondependent portion of urinary bladder. Recommend clinical correlation f or recent instrumentation/procedure versus Foss catheterization to exclude gas-forming infectious et iology or fistula. Otherwise, no additional acute abnormality in the abdomen/pelvis. [facility], , 06/20/2024 2:10 PM
[2024-06-20] MEDS: SODIUM CHLORIDE 0.9% 500 ML 500 ML IV ONE (14:41)
[2024-06-20] MEDS ORDERED: MORPHINE SULFATE 4 MG/ML SYRINGE IV PRN (15:30)
[2024-06-20] MEDS ORDERED: ONDANSETRON 4 MG/2 ML VIAL IVP PRN (15:30)
[2024-06-20] MEDS ORDERED: ACETAMINOPHEN TAB 325 MG TAB PO PRN (15:30)
[2024-06-20] MEDS ORDERED: NALOXONE 0.4 MG/ML 1 ML VIAL IV PRN (15:30)
[2024-06-20] MEDS: SODIUM CHLORIDE 0.9% 1,000 ML IV SCH (15:46)
[2024-06-20] MEDS: HYDROcodone/APAP 5-325MG 1 EACH TAB PO PRN (18:41)
[2024-06-20] MEDS: atenoloL 25 MG TAB PO SCH (21:06)
[2024-06-20] MEDS: FERROUS SULFATE 325 MG TAB PO SCH (21:06)
[2024-06-20] MEDS: APIXABAN 5 MG TAB PO SCH (21:06)
--- NOTE | 2024-06-20 21:28 | P.HPIM ---
History of Present Illness This is a pleasant 68 years old female with past medical history of multiple medical problems including hypertension, hyperlipidemia, A-fib on Eliquis and atenolol at home She presents because of abdominal pain Her pain mainly in the right upper quadrant but it happens in episodes, she had 2 episodes over 1 day which make her come to the hospital and currently she denies any pain in that area or tenderness Currently has no other GI complaints, bowel movement okay, no vomiting No chest pain dyspnea or coughing No headache. Patient complains from chronic dizziness and chronic shortness of breath. Patient was not tachypneic during my encounter. She denies weakness or tingling Patient also reports decrease frequency and amount of urination. She was referred to Dr. Dodge about she missed her appointment in more than 1 occasion. She denies suprapubic pain or tenderness Patient also complains from chronic balance problem Review of Systems Review of systems CONSTITUTIONAL: No fever, no malaise, no fatigue. HEENT: No recent visual problems or hearing problems. Denied any sore throat. CARDIOVASCULAR: No orthopnea, PND, no palpitations, no syncope. PULMONARY: No shortness of breath, no cough, no hemoptysis. GASTROINTESTINAL: No diarrhea, no nausea, no vomiting, no abdominal pain. N ormoactive bowel sounds. NEUROLOGICAL: No headaches, no weakness, no numbness. HEMATOLOGICAL: Denies any bleeding or petechiae. GENITOURINARY: Denies any burning micturition, frequency, or urgency. MUSCULOSKELETAL/RHEUMATOLOGICAL: Denies any joint pain, swelling, or any muscle pain. ENDOCRINE: Denies any polyuria or polydipsia. Past Medical History Past Medical History: Atrial Fibrillation, Hyperlipidemia, Hypertension, Osteoarthritis (OA), Renal Disease, Skin Disorder Additional Past Medical History / Comment(s): eczema. nery hip arthritis, bursitis, and pain. pt states falls frequently, uses a walker but loses balance with dizziness and lightheadedness- last fall 2 days ago, pt states no injury. chronic kidney disease stage 3B History of Any Multi-Drug Resistant Organisms: None Reported Past Surgical History: Appendectomy, Orthopedic Surgery, Tubal Ligation Additional Past Surgical History / Comment(s): cataracts, rt shoulder surg, cardioversion Past Anesthesia/Blood Transfusion Reactions: No Reported Reaction Past Psychological History: No Psychological Hx Reported Smoking Status: Former smoker Past Alcohol Use History: Occasional Additional Past Alcohol Use History / Comment(s): quit smoking 10 yrs ago; sm oked on and off. no alcohol 24 hrs prior to proc. Past Drug Use History: None Reported Additional Drug Use History / Comment(s): cbd oil to hip. pt aware not to use 24 hrs before proc. - Past Family History Mother Family Medical History: AFIB Father Family Medical History: Congestive Heart Failure (CHF) Sister(s) Family Medical History: Cancer Medications and Allergies Home Medications Medication Instructions Recorded Confirmed Type atenoloL [Tenormin] 25 mg PO BID 03/16/14 06/20/24 History Cyanocobalamin (Vitamin B-12) 1,000 mcg PO DAILY 02/28/20 06/20/24 History [Vitamin B-12] Amiodarone [Cordarone] 100 mg PO DAILY 10/07/22 06/20/24 History Apixaban [Eliquis] 5 mg PO BID 10/07/22 06/20/24 History Losartan Potassium 100 mg PO DAILY 10/07/22 06/20/24 History Torsemide [Demadex] 20 mg PO Q48H 10/07/22 06/20/24 History hydrALAZINE HCL 50 mg PO BID 10/07/22 06/20/24 History Rosuvastatin [Crestor] 20 mg PO DAILY 05/02/24 06/20/24 History allopurinoL 100 mg PO DAILY 05/02/24 06/20/24 History Cholecalciferol (Vitamin D3) 50 mcg PO DAILY 06/20/24 06/20/24 History [Vitamin D3 (50 Mcg = 2000 Iu)] Iron 45mg 1 tab PO HS 06/20/24 06/20/24 History Turmeric 538mg 1 cap PO DAILY 06/20/24 06/20/24 History Allergies Allergy/AdvReac Type Severity Reaction Status Date / Time diclofenac Allergy Anaphylaxis Verified 06/20/24 15:06 venom-honey bee Allergy Swelling Verified 06/20/24 15:06 ciprofloxacin [From Cipro] AdvReac Hallucinati Verified 06/20/24 15:06 ons Physical Exam Vitals: Vital Signs Temp Pulse Pulse Resp BP BP Pulse Ox 06/20/24 18:30 98.2 F 63 16 116/65 99 06/20/24 17:34 58 L 20 146/84 97 06/20/24 15:40 57 L 20 156/55 99 06/20/24 13:47 59 L 20 160/65 97 06/20/24 11:37 97.3 F L 58 L 20 124/55 99 Intake and Output 06/20/24 06/20/24 06/20/24 06:59 14:59 22:59 Other: Weight 72.575 kg 72.575 kg GENERAL: The patient is alert and oriented x3, not in any acute distress. Well developed, well nourished. HEENT: Pupils are round and equally reacting to light. EOMI. No scleral icterus. No conjunctival pallor. Normocephalic, atraumatic. No pharyngeal erythema. No thyromegaly. CARDIOVASCULAR: S1 and S2 present. No murmurs, rubs, or gallops. PULMONARY: Chest is clear to auscultation, no wheezing , no crackles. ABDOMEN: Soft, nontender, nondistended, normoactive bowel sounds. No palpable organomegaly. MUSCULOSKELETAL: No joint swelling or deformity. EXTREMITIES: No cyanosis, clubbing, or pedal edema. NEUROLOGICAL: Gross neurological examination did not reveal any focal deficits. SKIN: No rashes. no petechiae. Results CBC & Chem 7: 06/20/24 12:36 06/20/24 12:36 Labs: Abnormal Lab Results - Last 24 Hours (Table) 06/20/24 06/20/24 06/20/24 Range/Units 12:36 12:36 12:36 RBC 3.24 L (3.80-5.40) m/uL Hgb 10.8 L (11.4-16.0) gm/dL Hct 32.7 L (34.0-46.0) % MCV 101.1 H (80.0-100.0) fL Lymphocytes # 0.8 L (1.0-4.8) k/uL Sodium 136 L (137-145) mmol/L BUN 36 H (7-17) mg/dL Creatinine 2.46 H (0.52-1.04) mg/dL Glucose 100 H (74-99) mg/dL Urine Appearance Cloudy H (Clear) Urine Protein 1+ H (Negative) Urine Blood Trace H (Negative) Ur Leukocyte Esterase Large H (Negative) Urine WBC 111 H (0-5) /hpf Ur Squamous Epith Cells 6 H (0-4) /hpf Urine Bacteria Moderate H (None) /hpf Urine Mucus Rare H (None) /hpf Thrombosis Risk Factor Assmnt - Choose All That Apply Any of the Below Risk Factors Present?: Yes Each Factor Represents 1 point: Obesity (BMI >25) Other Risk Factors: Yes Each Risk Factor Represents 2 Points: Age 61-74 years Thrombosis Risk Factor Assessment Total Risk Factor Score: 3 Thrombosis Risk Factor Assessment Level: Moderate Risk Assessment and Plan Assessment: Patient complains from decreased urine Q frequency and amount of urination with abnormal UA suspicious for UTI. And gas in urinary bladder suspicious for gas- forming M.O versus fistula Acute kidney injury on chronic kidney disease stage III Chronic gait imbalance, associated with chronic dizziness as per patient A-fib with controlled rate, on Eliquis at home Microcytic anemia Hypertension Hyperlipidemia Osteoarthritis Plan: Continue with gentle hydration Start ceftriaxone and follow-up urine culture Consult urology service for abnormal CT of UB Resume Eliquis Her RUQ pain currently is asymptomatic, will keep monitoring urology team consult Labs and medication were reviewed.. Continue same treatment. Continue with symptomatic treatment. Resume home medication. Monitor labs and vitals. DVT and GI prophylaxis. Further recommendations as per clinical course of the pat ient DVT prophylaxis: Subcutaneous heparin GI Prophylaxis: Pepcid PT/OT: Pending Prognosis is guarded
[2024-06-20] MEDS: hydrALAZINE HCL 50 MG TAB PO SCH (21:29)
[2024-06-21] MEDS: LOSARTAN 50 MG TAB PO SCH (08:31)
[2024-06-21] MEDS: AMIODARONE 100 MG TAB PO SCH (08:32)
[2024-06-21] MEDS: ATORVASTATIN 40 MG TAB PO SCH (08:32)
[2024-06-21] MEDS: CYANOCOBALAMIN 500 MCG TAB PO SCH (08:32)
[2024-06-21] MEDS: CHOLECALCIFEROL 25 MCG (1000 IU) TABLET PO SCH (08:32)
[2024-06-21] MEDS: allopurinoL 100 MG TAB PO SCH (08:32)
[2024-06-21] MEDS: TORSEMIDE 20 MG TAB PO SCH (08:33)
[2024-06-21] MEDS ORDERED: TURMERIC PO SCH (09:00)
--- NOTE | 2024-06-21 10:01 | P.GSCN ---
History of Present Illness Consult date: 06/21/24 History of present illness: 68 yo female presented to the hospital yesterday with right sided abdominal pain. She was found to have a uti with air in her bladder and was admitted for antibiotics and evaluation. Her urine looks infected. HEr ct scan hows air in her bladder. SHe had a colonsocopy in april that showed diverticulosis. She has had previous utis. She has a known history of an atrophic right kidney. Her ct scan didnot show any hydronephrosis. There is no evidence of stone disease.she denies any pneumaturia. She denies diarrhea or significant left lower quadrant pain. She has not had previous urologic evaluation. She states that she has been told she has had asymptomatic urine infection over the last couple years and was supposed to come to our office for further evaluation. She did not do so. She is afebrile and feels well this morning. Review of Systems All systems: negative - Constitutional Denies fever, Denies weight loss - EENT Eyes: denies blurred vision Ears, nose, mouth and throat: Denies dysphagia - Cardiovascular Denies chest pain, Denies shortness of breath - Respiratory Denies cough, Denies 7 - Gastrointestinal Reports as per HPI - Genitourinary Genitourinary: Denies dysuria, Denies hematuria - Integumentary Denies rash, Denies unusual bruising - Neurological Denies headaches, Denies syncope - Hematologic/Lymphatic Denies easy bleeding, Denies easy bruising Past Medical History Past Medical History: Atrial Fibrillation, Hyperlipidemia, Hypertension, Osteoarthritis (OA), Renal Disease, Skin Disorder Additional Past Medical History / Comment(s): eczema. nery hip arthritis, bursitis, and pain. pt states falls frequently, uses a walker but loses balance with dizziness and lightheadedness- last fall 2 days ago, pt states no injury. chronic kidney disease stage 3B History of Any Multi-Drug Resistant Organisms: None Reported Past Surgical History: Appendectomy, Orthopedic Surgery, Tubal Ligation Additional Past Surgical History / Comment(s): cataracts, rt shoulder surg, cardioversion Past Anesthesia/Blood Transfusion Reactions: No Reported Reaction Past Psychological History: No Psychological Hx Reported Smoking Status: Former smoker Past Alcohol Use History: Occasional Additional Past Alcohol Use History / Comment(s): quit smoking 10 yrs ago; smoked on and off. no alcohol 24 hrs prior to proc. Past Drug Use History: None Reported Additional Drug Use History / Comment(s): cbd oil to hip. pt aware not to use 24 hrs before proc. - Past Family History Mother Family Medical History: AFIB Father Family Medical History: Congestive Heart Failure (CHF) Sister(s) Family Medical History: Cancer Medications and Allergies Home Medications Medication Instructions Recorded Confirmed Type atenoloL [Tenormin] 25 mg PO BID 03/16/14 06/20/24 History Cyanocobalamin (Vitamin B-12) 1,000 mcg PO DAILY 02/28/20 06/20/24 History [Vitamin B-12] Amiodarone [Cordarone] 100 mg PO DAILY 10/07/22 06/20/24 History Apixaban [Eliquis] 5 mg PO BID 10/07/22 06/20/24 History Losartan Potassium 100 mg PO DAILY 10/07/22 06/20/24 History Torsemide [Demadex] 20 mg PO Q48H 10/07/22 06/20/24 History hydrALAZINE HCL 50 mg PO BID 10/07/22 06/20/24 History Rosuvastatin [Crestor] 20 mg PO DAILY 05/02/24 06/20/24 History allopurinoL 100 mg PO DAILY 05/02/24 06/20/24 History Cholecalciferol (Vitamin D3) 50 mcg PO DAILY 06/20/24 06/20/24 History [Vitamin D3 (50 Mcg = 2000 Iu)] Iron 45mg 1 tab PO HS 06/20/24 06/20/24 History Turmeric 538mg 1 cap PO DAILY 06/20/24 06/20/24 History Allergies Allergy/AdvReac Type Severity Reaction Status Date / Time diclofenac Allergy Anaphylaxis Verified 06/20/24 15:06 venom-honey bee Allergy Swelling Verified 06/20/24 15:06 ciprofloxacin [From Cipro] AdvReac Hallucinati Verified 06/20/24 15:06 ons Surgical - Exam Vital Signs Temp Pulse Resp BP Pulse Ox 97.3 F L 58 L 20 124/55 99 06/20/24 11:37 06/20/24 11:37 06/20/24 11:37 06/20/24 11:37 06/20/24 11:37 - General well developed, well nourished, no distress - Eyes normal ocular movement, no icteric - ENT no hearing loss, no congestion - Neck no masses, trachea midline - Respiratory normal respiratory effort, clear to auscultation - Abdomen Abdomen: soft, non tender, no guarding, no rigid, no rebound - Integumentary no rash, no abnormal pigmentation - Neurologic no disoriented, no combative - Psychiatric oriented to time, oriented to person, oriented to place, speech is normal, memory intact Results - Labs 06/20/24 12:36 06/20/24 12:36 Abnormal Lab Results - Last 24 Hours (Table) 06/20/24 06/20/24 06/20/24 Range/Units 12:36 12:36 12:36 RBC 3.24 L (3.80-5.40) m/uL Hgb 10.8 L (11.4-16.0) gm/dL Hct 32.7 L (34.0-46.0) % MCV 101.1 H (80.0-100.0) fL Lymphocytes # 0.8 L (1.0-4.8) k/uL Sodium 136 L (137-145) mmol/L BUN 36 H (7-17) mg/dL Creatinine 2.46 H (0.52-1.04) mg/dL Glucose 100 H (74-99) mg/dL Urine Appearance Cloudy H (Clear) Urine Protein 1+ H (Negative) Urine Blood Trace H (Negative) Ur Leukocyte Esterase Large H (Negative) Urine WBC 111 H (0-5) /hpf Ur Squamous Epith Cells 6 H (0-4) /hpf Urine Bacteria Moderate H (None) /hpf Urine Mucus Rare H (None) /hpf Diabetes panel 06/20/24 Range/Units 12:36 Sodium 136 L (137-145) mmol/L Potassium 4.6 (3.5-5.1) mmol/L Chloride 104 (98-107) mmol/L Carbon Dioxide 25 (22-30) mmol/L BUN 36 H (7-17) mg/dL Creatinine 2.46 H (0.52-1.04) mg/dL Glucose 100 H (74-99) mg/dL Calcium 9.7 (8.4-10.2) mg/dL AST 31 (14-36) U/L ALT 27 (4-34) U/L Alkaline Phosphatase 100 (38-126) U/L Total Protein 7.1 (6.3-8.2) g/dL Albumin 4.1 (3.5-5.0) g/dL Calcium panel 06/20/24 Range/Units 12:36 Calcium 9.7 (8.4-10.2) mg/dL Albumin 4.1 (3.5-5.0) g/dL Pituitary panel 06/20/24 Range/Units 12:36 Sodium 136 L (137-145) mmol/L Potassium 4.6 (3.5-5.1) mmol/L Chloride 104 (98-107) mmol/L Carbon Dioxide 25 (22-30) mmol/L BUN 36 H (7-17) mg/dL Creatinine 2.46 H (0.52-1.04) mg/dL Glucose 100 H (74-99) mg/dL Calcium 9.7 (8.4-10.2) mg/dL Adrenal panel 06/20/24 Range/Units 12:36 Sodium 136 L (137-145) mmol/L Potassium 4.6 (3.5-5.1) mmol/L Chloride 104 (98-107) mmol/L Carbon Dioxide 25 (22-30) mmol/L BUN 36 H (7-17) mg/dL Creatinine 2.46 H (0.52-1.04) mg/dL Glucose 100 H (74-99) mg/dL Calcium 9.7 (8.4-10.2) mg/dL Total Bilirubin 0.8 (0.2-1.3) mg/dL AST 31 (14-36) U/L ALT 27 (4-34) U/L Alkaline Phosphatase 100 (38-126) U/L Total Protein 7.1 (6.3-8.2) g/dL Albumin 4.1 (3.5-5.0) g/dL - Imaging CT scan - abdomen: report reviewed, image reviewed CT scan - pelvis: report reviewed, image reviewed Assessment and Plan Assessment: Impression: uti wth air in bladder , fistula vs gas producing bacteria. diverticular disease of the colon. Recommendations:a urologic standpoint the patient may go home. She should go home on antibiotics. She should follow my office in a week to 10 days. She will need cystoscopy. The question is whether this is emphysematous cystitis due to an air forming bacteria or a fistula. Time with Patient: Greater than 30
[2024-06-21 10:35] LABS: Basophils # (A) 0.04 X 10*3/uL (0.00-0.10); Basophils % (A) 0.7 %; Eosinophils % (A) 1.8 %; HCT 28.9 % (37.2-46.3); HGB 9.2 g/dL (12.0-15.0); Lymphocytes # (A) 0.74 X 10*3/uL (0.90-5.00); MCH 32.7 pg (27.0-32.0); MCHC 31.8 g/dL (32.0-37.0); MCV 102.8 FL (80.0-97.0); Mean Platelet Volume 10.5 FL (9.5-12.2); Monocytes # (A) 0.69 X 10*3/uL (0.20-1.00); Monocytes % (A) 12.1 %; NRBC Per 100 WBC 0 X 10*3/uL (0.00-0.01); Platelet Count 184 X 10*3/uL (140-440); RBC 2.81 X 10*6/uL (4.10-5.20); WBC 5.69 X 10*3/uL (4.50-10.00)
[2024-06-21 10:50] LABS: ALT 19 U/L (8-44); AST 27 U/L (13-35); Albumin 3.5 g/dL (3.8-4.9); Albumin/Globulin Ratio 1.67 Ratio (1.60-3.17); Alkaline Phosphatase 84 U/L (41-126); BUN/Creat Ratio 12.76 Ratio (12.00-20.00); Bilirubin, Conjugated <0.20 mg/dL (0.20-0.40); Blood Urea Nitrogen 26.8 mg/dL (9.0-27.0); Calcium 8.9 mg/dL (8.7-10.3); Carbon Dioxide 23.1 mmol/L (21.6-31.8); Chloride 109 mmol/L (96-109); Globulin 2.1 g/dL (1.6-3.3); Glucose 98 mg/dL (70-110); Potassium 4.3 mmol/L (3.5-5.5); Sodium 141 mmol/L (135-145); Total Bilirubin <0.2 mg/dL (0.3-1.2); Total Protein 5.6 g/dL (6.2-8.2)
--- NOTE | 2024-06-21 19:04 | P.PN ---
Subjective This is a pleasant 68 years old female with past medical history of multiple medical problems including hypertension, hyperlipidemia, A-fib on Eliquis and atenolol at home She presents because of abdominal pain Her pain mainly in the right upper quadrant but it happens in episodes, she had 2 episodes over 1 day which make her come to the hospital and currently she denies any pain in that area or tenderness Currently has no other GI complaints, bowel movement okay, no vomiting No chest pain dyspnea or coughing No headache. Patient complains from chronic dizziness and chronic shortness of breath. Patient was not tachypneic during my encounter. She denies weakness or tingling Patient also reports decrease frequency and amount of urination. She was referred to Dr. Dodge about she missed her appointment in more than 1 occasion. She denies suprapubic pain or tenderness Patient also complains from chronic balance problem 06/21 Patient emergently with 2 episodes of right upper quadrant abdominal pain which is resolved Workup was showing gas in the renal bladder and UTI. Patient started on ceftriaxone. Urologist evaluated the patient and recommended outpatient follow- up whether it is due to fistula or gas-forming microorganism. Infectious disease consult was obtained today. Ceftriaxone was increased to 2 g daily Hemoglobin dropped from 10.7 down to 9.2. Patient is on Eliquis for history of A-fib, recommend to hold Eliquis and consult surgery team. Patient recently had colonoscopy with Dr. Lal about 3 weeks ago showing diverticulosis as per patient. I discussed the case with the patient we are going to make her n.p.o. tonight to be evaluated tomorrow by surgery team. Patient informed of these plans and she is agreeable Her creatinine was elevated 2.4 on admission, today 2.1 and felt like creatinine baseline close to 1.5 and continued to improve while on normal saline 75 mL/h I have lengthy discussion with the patient and she agrees with the above plan review of systems CONSTITUTIONAL: No fever, no malaise, no fatigue. HEENT: No recent visual problems or hearing problems. Denied any sore throat. NEUROLOGICAL: No headaches, no weakness, no numbness. HEMATOLOGICAL: Denies any bleeding or petechiae. GENITOURINARY: Denies any burning micturition, frequency, or urgency. MUSCULOSKELETAL/RHEUMATOLOGICAL: Denies any joint pain, swelling, or any muscle pain. ENDOCRINE: Denies any polyuria or polydipsia. Active Medications Generic Name Dose Route Start Last Admin Trade Name Freq PRN Reason Stop Dose Admin Acetaminophen 650 mg 06/20/24 15:30 Acetaminophen Tab 325 Mg Tab PO Q6HR PRN Mild Pain or Fever > 100.5 Hydrocodone Bitart/Acetaminophen 1 each 06/20/24 18:35 06/21/24 16:29 Hydrocodone/Apap 5-325mg 1 Each Tab PO 1 each Q6HR PRN Administration Pain Allopurinol 100 mg 06/21/24 09:00 06/21/24 08:32 Allopurinol 100 Mg Tab PO 100 mg DAILY TAVARES Administration Amiodarone HCl 100 mg 06/21/24 09:00 06/21/24 08:32 Amiodarone 100 Mg Tab PO 100 mg DAILY TAVARES Administration Atenolol 25 mg 06/20/24 21:00 06/21/24 08:32 Atenolol 25 Mg Tab PO 25 mg BID TAVARES Administration Atorvastatin Calcium 40 mg 06/21/24 09:00 06/21/24 08:32 Atorvastatin 40 Mg Tab PO 40 mg DAILY TAVARES Administration Cholecalciferol 50 mcg 06/21/24 09:00 06/21/24 08:32 Cholecalciferol 25 Mcg (1000 Iu) Tablet PO 50 mcg DAILY TAVARES Administration Cyanocobalamin 1,000 mcg 06/21/24 09:00 06/21/24 08:32 Cyanocobalamin 500 Mcg Tab PO 1,000 mcg DAILY TAVARES Administration Ferrous Sulfate 325 mg 06/20/24 21:00 06/20/24 21:06 Ferrous Sulfate 325 Mg Tab PO 325 mg HS TAVARES Administration Hydralazine HCl 50 mg 06/20/24 21:00 06/21/24 08:32 Hydralazine Hcl 50 Mg Tab PO 50 mg BID TAVARES Administration Sodium Chloride 1,000 mls @ 75 mls/hr 06/20/24 15:30 06/21/24 04:57 Saline 0.9% IV 75 mls/hr .[id number] TAVARES Administration Ceftriaxone Sodium 2 gm/ 50 mls @ 100 mls/hr 06/21/24 21:00 Sodium Chloride IVPB Q24H TAVARES Protocol Losartan Potassium 100 mg 06/21/24 09:00 06/21/24 08:31 Losartan 50 Mg Tab PO 100 mg DAILY TAVARES Administration Morphine Sulfate 4 mg 06/20/24 15:30 Morphine Sulfate 4 Mg/Ml Syringe IV Q4HR PRN Severe Pain (Scale 7 to 10) Naloxone HCl 0.2 mg 06/20/24 15:30 Naloxone 0.4 Mg/Ml 1 Ml Vial IV Q2M PRN Opioid Reversal Ondansetron HCl 4 mg 06/20/24 15:30 Ondansetron 4 Mg/2 Ml Vial IVP Q8HR PRN Nausea And Vomiting Torsemide 20 mg 06/21/24 09:00 06/21/24 08:33 Torsemide 20 Mg Tab PO Not Given Q48H TAVARES Objective - Vital Signs Vital signs: Vital Signs Temp 97.3 F L 06/21/24 07:00 Pulse 50 L 06/21/24 07:00 Resp 14 06/21/24 07:00 BP 166/77 06/21/24 07:00 Pulse Ox 100 06/21/24 07:00 FiO2 Intake & Output 06/20/24 06/21/24 06/21/24 18:59 06:59 18:59 Intake Total 600 118 Balance 600 118 Weight 72.575 kg Intake: Oral 600 118 Other: Voiding Method Toilet Diaper Incontinent # Voids 3 - Exam GENERAL: The patient is alert and oriented x3, not in any acute distress. Well developed, well nourished. HEENT: Pupils are round and equally reacting to light. EOMI. No scleral icterus. No conjunctival pallor. Normocephalic, atraumatic. No pharyngeal erythema. No thyromegaly. CARDIOVASCULAR: S1 and S2 present. No murmurs, rubs, or gallops. PULMONARY: Chest is clear to auscultation, no wheezing , no crackles. ABDOMEN: Soft, nontender, nondistended, normoactive bowel sounds. No palpable organomegaly. MUSCULOSKELETAL: No joint swelling or deformity. EXTREMITIES: No cyanosis, clubbing, or pedal edema. NEUROLOGICAL: Gross neurological examination did not reveal any focal deficits. SKIN: No rashes. no petechiae. - Labs CBC & Chem 7: 06/21/24 07:02 06/21/24 07:02 Labs: Abnormal Lab Results - Last 24 Hours (Table) 06/20/24 06/21/24 06/21/24 Range/Units 12:36 07:02 07:02 RBC 2.81 L (4.10-5.20) X 10*6/uL Hgb 9.2 L (12.0-15.0) g/dL Hct 28.9 L (37.2-46.3) % MCV 102.8 H (80.0-97.0) FL MCH 32.7 H (27.0-32.0) pg MCHC 31.8 L (32.0-37.0) g/dL RDW 15.0 H (11.5-14.5) % Lymphocytes # 0.74 L (0.90-5.00) X 10*3/uL Sodium 136 L (137-145) mmol/L BUN 36 H (7-17) mg/dL Creatinine 2.46 H 2.1 H (0.52-1.04) mg/dL Est GFR (CKD-EPI) 25 L (>=60) Glucose 100 H (74-99) mg/dL Total Bilirubin <0.2 L (0.3-1.2) mg/dL Total Protein 5.6 L (6.2-8.2) g/dL Albumin 3.5 L (3.8-4.9) g/dL Assessment and Plan Assessment: Patient complains from decreased urine Q frequency and amount of urination with abnormal UA suspicious for UTI. And gas in urinary bladder suspicious for gas- forming M.O versus fistula Acute kidney injury on chronic kidney disease stage III Anemia with slight drop in hemoglobin, rule out GI bleed Acute urinary tract infection Chronic gait imbalance, associated with chronic dizziness as per patient A-fib with controlled rate, on Eliquis at home Microcytic anemia Hypertension Hyperlipidemia Osteoarthritis Plan: Continue with gentle hydration, creatinine is improving Start ceftriaxone and follow-up urine culture. Infectious disease consult obtained. Dr. Dodge recommended outpatient follow-up Consult urology service for abnormal CT of UB Hold Eliquis, continue with PPI and monitor hemoglobin. Consult surgery team Her RUQ pain currently is asymptomatic, will keep monitoring Labs and medication were reviewed.. Continue same treatment. Continue with symptomatic treatment. Resume home medication. Monitor labs and vitals. DVT and GI prophylaxis. Further recommendations as per clinical course of the patient DVT prophylaxis: Eliquis on hold GI Prophylaxis: Protonix PT/OT: Pending Prognosis is guarded
[2024-06-21] MEDS: PANTOPRAZOLE 40 MG/10 ML VIAL IVP SCH (20:33)
[2024-06-22 05:30] LABS: % Iron Saturation 17.07 (12.00-45.00)
--- NOTE | 2024-06-22 08:45 | P.CONS ---
History of Present Illness - Reason for Consult Consult date: 06/21/24 UTI Requesting physician: Magdaleno E Sheet - Chief Complaint Right-sided abdominal pain x 1 day - History of Present Illness Patient is a 68-year-old female with a past medical history significant for hypertension hyperlipidemia osteoarthritis atrial fibrillation p resenting to the hospital for evaluation of right-sided abdominal pain patient pain started the night before presentation to the hospital and was describing the pain to be sharp moderate to severe intensity without significant radiation patient denies having any nausea no vomiting usually constipated and no diarrhea with the symptoms the patient was evaluated on presentation to the hospital patient was afebrile and no fever have been called subsequently patient was not tachycardic hypotensive or hypoxic did have a white count of 5.69 BUN and creatinine was mildly elevated with a creatinine of 2.1 liver enzymes are normal patient did have a positive UA with large leukocyte esterase more than 111 WBC urine cultures obtain patient did have chest x-ray no acute cardiopulmonary disease process patient did have abdominal pelvis CT nondependent gas within the nondependent portion of the urinary bladder concerning for for possible gas- forming infection etiology versus fistula patient has been eval by urology and not recommend cystoscopy at this point other in the outpatient setting infectiou s disease was consulted for further management of antibiotic therapy by admitting team patient did mention or improvement her pain and denies having any hematuria or passing any air through her urethra Review of Systems Positive point and negatives has been mentioned in the HPI, complete review of systems was performed and all other systems are negative Past Medical History Past Medical History: Atrial Fibrillation, Hyperlipidemia, Hypertension, Osteoarthritis (OA), Renal Disease, Skin Disorder Additional Past Medical History / Comment(s): eczema. nery hip arthritis, bursitis, and pain. pt states falls frequently, uses a walker but loses balance with dizziness and lightheadedness- last fall 2 days ago, pt states no injury. chronic kidney disease stage 3B History of Any Multi-Drug Resistant Organisms: None Reported Past Surgical History: Appendectomy, Orthopedic Surgery, Tubal Ligation Additional Past Surgical History / Comment(s): cataracts, rt shoulder surg, cardioversion Past Anesthesia/Blood Transfusion Reactions: No Reported Reaction Past Psychological History: No Psychological Hx Reported Smoking Status: Former smoker Past Alcohol Use History: Occasional Additional Past Alcohol Use History / Comment(s): quit smoking 10 yrs ago; smoked on and off. no alcohol 24 hrs prior to proc. Past Drug Use History: None Reported Additional Drug Use History / Comment(s): cbd oil to hip. pt aware not to use 24 hrs before proc. - Past Family History Mother Family Medical History: AFIB Father Family Medical History: Congestive Heart Failure (CHF) Sister(s) Family Medical History: Cancer Medications and Allergies Home Medications Medication Instructions Recorded Confirmed Type atenoloL [Tenormin] 25 mg PO BID 03/16/14 06/20/24 History Cyanocobalamin (Vitamin B-12) 1,000 mcg PO DAILY 02/28/20 06/20/24 History [Vitamin B-12] Amiodarone [Cordarone] 100 mg PO DAILY 10/07/22 06/20/24 History Apixaban [Eliquis] 5 mg PO BID 10/07/22 06/20/24 History Losartan Potassium 100 mg PO DAILY 10/07/22 06/20/24 History Torsemide [Demadex] 20 mg PO Q48H 10/07/22 06/20/24 History hydrALAZINE HCL 50 mg PO BID 10/07/22 06/20/24 History Rosuvastatin [Crestor] 20 mg PO DAILY 05/02/24 06/20/24 History allopurinoL 100 mg PO DAILY 05/02/24 06/20/24 History Cholecalciferol (Vitamin D3) 50 mcg PO DAILY 06/20/24 06/20/24 History [Vitamin D3 (50 Mcg = 2000 Iu)] Iron 45mg 1 tab PO HS 06/20/24 06/20/24 History Turmeric 538mg 1 cap PO DAILY 06/20/24 06/20/24 History Allergies Allergy/AdvReac Type Severity Reaction Status Date / Time diclofenac Allergy Anaphylaxis Verified 06/20/24 15:06 venom-honey bee Allergy Swelling Verified 06/20/24 15:06 ciprofloxacin [From Cipro] AdvReac Hallucinati Verified 06/20/24 15:06 ons Physical Exam Vitals: Vital Signs Temp Pulse Pulse Resp BP BP BP 06/21/24 07:00 97.3 F L 50 L 14 166/77 06/21/24 02:00 97.9 F 50 L 16 123/67 06/20/24 18:30 98.2 F 63 16 116/65 06/20/24 17:34 58 L 20 146/84 06/20/24 15:40 57 L 20 156/55 06/20/24 13:47 59 L 20 160/65 Pulse Ox 06/21/24 07:00 100 06/21/24 02:00 100 06/20/24 18:30 99 06/20/24 17:34 97 06/20/24 15:40 99 06/20/24 13:47 97 Intake and Output 06/20/24 06/21/24 06/21/24 22:59 06:59 14:59 Intake Total 360 240 118 Balance 360 240 118 Intake: Oral 360 240 118 Other: Voiding Method Toilet Diaper Incontinent # Voids 3 3 Weight 72.575 kg GENERAL DESCRIPTION: Elderly female up in bed, no distress. No tachypnea or accessory muscle of respiration use. HEENT: Shows Pallor , no scleral icterus. Oral mucous membrane is dry. NECK: Trachea central, no thyromegaly. LUNGS: Unlabored breathing. Clear to auscultation anteriorly. No wheeze or crackle. HEART: S1, S2, regular rate and rhythm. No loud murmur ABDOMEN: Soft, no tenderness , guarding or rigidity, no organomegaly EXTREMITIES: No edema of feet. SKIN: No rash, no masses palpable. NEUROLOGICAL: The patient is awake, alert, oriented x3, mood and affect normal. Results CBC & Chem 7: 06/22/24 04:30 06/22/24 04:30 Labs: Abnormal Lab Results - Last 24 Hours (Table) 06/21/24 06/21/24 Range/Units 07:02 07:02 RBC 2.81 L (4.10-5.20) X 10*6/uL Hgb 9.2 L (12.0-15.0) g/dL Hct 28.9 L (37.2-46.3) % MCV 102.8 H (80.0-97.0) FL MCH 32.7 H (27.0-32.0) pg MCHC 31.8 L (32.0-37.0) g/dL RDW 15.0 H (11.5-14.5) % Lymphocytes # 0.74 L (0.90-5.00) X 10*3/uL Creatinine 2.1 H (0.6-1.5) mg/dL Est GFR (CKD-EPI) 25 L (>=60) Total Bilirubin <0.2 L (0.3-1.2) mg/dL Total Protein 5.6 L (6.2-8.2) g/dL Albumin 3.5 L (3.8-4.9) g/dL Assessment and Plan (1) UTI (urinary tract infection) Current Visit: Yes Status: Acute Code(s): N39.0 - URINARY TRACT INFECTION, SITE NOT SPECIFIED SNOMED Code(s): 66540078 Plan: 1patient presented to hospital with right-sided abdominal pain in this patient who did have significantly positive UA did have abnormal CT with concern for possible emphysematous cystitis versus fistula patient to have a history of constipation but no significant diverticulitis or diverticular changes were noticed on the CT patient not reporting any fever or stool passage through the urethra we will make fistula less likely. 2patient is being followed by urology and will benefit from cystoscopy timing per urology. 3we will increase the dose of Rocephin to 2 g daily while waiting for the culture to finalize with the discharge antibiotics on the basis of final culture. We will follow on clinical condition and cultures to further adjust medication if needed Thank you for this consultation we will follow the patient along with you Dictation was produced using [employer] dictation software. please excuse any grammatical, word or spelling errors. Time with Patient: Greater than 30
[2024-06-22 09:39] LABS: BUN/Creat Ratio 12.67 Ratio (12.00-20.00); Blood Urea Nitrogen 22.8 mg/dL (9.0-27.0); Carbon Dioxide 22.3 mmol/L (21.6-31.8); Chloride 112 mmol/L (96-109); Glucose 108 mg/dL (70-110); Potassium 4.2 mmol/L (3.5-5.5); Sodium 142 mmol/L (135-145)
[2024-06-22 09:40] LABS: HGB 8.6 g/dL (12.0-15.0); MCH 32.7 pg (27.0-32.0); MCHC 31.9 g/dL (32.0-37.0); MCV 102.7 FL (80.0-97.0); Mean Platelet Volume 10.6 FL (9.5-12.2); NRBC Per 100 WBC 0 X 10*3/uL (0.00-0.01); Platelet Count 174 X 10*3/uL (140-440); RBC 2.63 X 10*6/uL (4.10-5.20); WBC 6.14 X 10*3/uL (4.50-10.00)
[2024-06-22 09:41] LABS: Basophils # (A) 0.03 X 10*3/uL (0.00-0.10); Basophils % (A) 0.5 %; Eosinophils % (A) 1.6 %; Lymphocytes # (A) 0.66 X 10*3/uL (0.90-5.00); Lymphocytes % (A) 10.7 %; Monocytes # (A) 0.66 X 10*3/uL (0.20-1.00); Monocytes % (A) 10.7 %; Neutrophils # (A) 4.66 X 10*3/uL (1.80-7.70)
--- NOTE | 2024-06-22 10:26 | P.GSCN ---
History of Present Illness History of present illness: 68 yo female presented to the hospital with right sided abdominal pain. She was found to have a uti with air in her bladder and was admitted for antibiotics and evaluation. Her urine looks infected. HEr ct scan hows air in her bladder. SHe had a colonsocopy in april that showed diverticulosis. She has had previous utis. She has a known history of an atrophic right kidney. Her ct scan didnot show any hydronephrosis. There is no evidence of stone disease.she denies any pneumaturia. She denies diarrhea or significant left lower quadrant pain. She admits to multiple urinary tract infections, last colonoscopy x 3 weeks ago. Currently denies fevers, chills, shortness of breath or chest pain. Review of Systems - EENT Ears, nose, mouth and throat: Reports as per HPI Past Medical History Past Medical History: Atrial Fibrillation, Hyperlipidemia, Hypertension, Osteoarthritis (OA), Renal Disease, Skin Disorder Additional Past Medical History / Comment(s): eczema. nery hip arthritis, bursitis, and pain. pt states falls frequently, uses a walker but loses balance with dizziness and lightheadedness- last fall 2 days ago, pt states no injury. c hronic kidney disease stage 3B History of Any Multi-Drug Resistant Organisms: None Reported Past Surgical History: Appendectomy, Orthopedic Surgery, Tubal Ligation Additional Past Surgical History / Comment(s): cataracts, rt shoulder surg, cardioversion Past Anesthesia/Blood Transfusion Reactions: No Reported Reaction Past Psychological History: No Psychological Hx Reported Smoking Status: Former smoker Past Alcohol Use History: Occasional Additional Past Alcohol Use History / Comment(s): quit smoking 10 yrs ago; smoked on and off. no alcohol 24 hrs prior to proc. Past Drug Use History: None Reported Additional Drug Use History / Comment(s): cbd oil to hip. pt aware not to use 24 hrs before proc. - Past Family History Mother Family Medical History: AFIB Father Family Medical History: Congestive Heart Failure (CHF) Sister(s) Family Medical History: Cancer Medications and Allergies Home Medications Medication Instructions Recorded Confirmed Type atenoloL [Tenormin] 25 mg PO BID 03/16/14 06/20/24 History Cyanocobalamin (Vitamin B-12) 1,000 mcg PO DAILY 02/28/20 06/20/24 History [Vitamin B-12] Amiodarone [Cordarone] 100 mg PO DAILY 10/07/22 06/20/24 History Apixaban [Eliquis] 5 mg PO BID 10/07/22 06/20/24 History Losartan Potassium 100 mg PO DAILY 10/07/22 06/20/24 History Torsemide [Demadex] 20 mg PO Q48H 10/07/22 06/20/24 History hydrALAZINE HCL 50 mg PO BID 10/07/22 06/20/24 History Rosuvastatin [Crestor] 20 mg PO DAILY 05/02/24 06/20/24 History allopurinoL 100 mg PO DAILY 05/02/24 06/20/24 History Cholecalciferol (Vitamin D3) 50 mcg PO DAILY 06/20/24 06/20/24 History [Vitamin D3 (50 Mcg = 2000 Iu)] Iron 45mg 1 tab PO HS 06/20/24 06/20/24 History Turmeric 538mg 1 cap PO DAILY 06/20/24 06/20/24 History Allergies Allergy/AdvReac Type Severity Reaction Status Date / Time diclofenac Allergy Anaphylaxis Verified 06/20/24 15:06 venom-honey bee Allergy Swelling Verified 06/20/24 15:06 ciprofloxacin [From Cipro] AdvReac Hallucinati Verified 06/20/24 15:06 ons Surgical - Exam Osteopathic Statement: *. No significant issues noted on an osteopathic structural exam other than those noted in the History and Physical/Consult. Vital Signs Temp Pulse Resp BP Pulse Ox 97.3 F L 58 L 20 124/55 99 06/20/24 11:37 06/20/24 11:37 06/20/24 11:37 06/20/24 11:37 06/20/24 11:37 - General gen: nad heent: atraumatic, normocephalic, eyes perrla, oral mucosa moist, no neck masses cv: rrr pul: non labored breathing abd: soft, non tender, non distended, no guarding or rebound tenderness Results - Labs 06/22/24 04:30 06/22/24 04:30 Abnormal Lab Results - Last 24 Hours (Table) 06/21/24 06/21/24 06/21/24 Range/Units 07:02 07:02 07:02 RBC 2.81 L (4.10-5.20) X 10*6/uL Hgb 9.2 L (12.0-15.0) g/dL Hct 28.9 L (37.2-46.3) % MCV 102.8 H (80.0-97.0) FL MCH 32.7 H (27.0-32.0) pg MCHC 31.8 L (32.0-37.0) g/dL RDW 15.0 H (11.5-14.5) % Lymphocytes # 0.74 L (0.90-5.00) X 10*3/uL Chloride (96-109) mmol/L Creatinine 2.1 H (0.6-1.5) mg/dL Est GFR (CKD-EPI) 25 L (>=60) Iron 42 L (50-170) UG/DL Transferrin 176.0 L (204.0-354.0) mg/dL Total Bilirubin <0.2 L (0.3-1.2) mg/dL Total Protein 5.6 L (6.2-8.2) g/dL Albumin 3.5 L (3.8-4.9) g/dL 06/22/24 06/22/24 Range/Units 04:30 04:30 RBC 2.63 L (4.10-5.20) X 10*6/uL Hgb 8.6 L (12.0-15.0) g/dL Hct 27.0 L (37.2-46.3) % MCV 102.7 H (80.0-97.0) FL MCH 32.7 H (27.0-32.0) pg MCHC 31.9 L (32.0-37.0) g/dL RDW 15.0 H (11.5-14.5) % Lymphocytes # 0.66 L (0.90-5.00) X 10*3/uL Chloride 112 H (96-109) mmol/L Creatinine 1.8 H (0.6-1.5) mg/dL Est GFR (CKD-EPI) 30 L (>=60) Iron (50-170) UG/DL Transferrin (204.0-354.0) mg/dL Total Bilirubin (0.3-1.2) mg/dL Total Protein (6.2-8.2) g/dL Albumin (3.8-4.9) g/dL Microbiology - Last 24 Hours (Table) 06/20/24 15:30 Blood Culture - Preliminary Blood 06/20/24 12:36 Urine Culture - Preliminary Urine,Voided Gram Neg Bacilli Diabetes panel 06/21/24 06/22/24 Range/Units 07:02 04:30 Sodium 141 142 (135-145) mmol/L Potassium 4.3 4.2 (3.5-5.5) mmol/L Chloride 109 112 H (96-109) mmol/L Carbon Dioxide 23.1 22.3 (21.6-31.8) mmol/L BUN 26.8 22.8 (9.0-27.0) mg/dL Creatinine 2.1 H 1.8 H (0.6-1.5) mg/dL Glucose 98 108 (70-110) mg/dL Calcium 8.9 9.0 (8.7-10.3) mg/dL AST 27 (13-35) U/L ALT 19 (8-44) U/L Alkaline Phosphatase 84 (41-126) U/L Total Protein 5.6 L (6.2-8.2) g/dL Albumin 3.5 L (3.8-4.9) g/dL Calcium panel 06/21/24 06/22/24 Range/Units 07:02 04:30 Calcium 8.9 9.0 (8.7-10.3) mg/dL Albumin 3.5 L (3.8-4.9) g/dL Pituitary panel 06/21/24 06/22/24 Range/Units 07:02 04:30 Sodium 141 142 (135-145) mmol/L Potassium 4.3 4.2 (3.5-5.5) mmol/L Chloride 109 112 H (96-109) mmol/L Carbon Dioxide 23.1 22.3 (21.6-31.8) mmol/L BUN 26.8 22.8 (9.0-27.0) mg/dL Creatinine 2.1 H 1.8 H (0.6-1.5) mg/dL Glucose 98 108 (70-110) mg/dL Calcium 8.9 9.0 (8.7-10.3) mg/dL Adrenal panel 06/21/24 06/22/24 Range/Units 07:02 04:30 Sodium 141 142 (135-145) mmol/L Potassium 4.3 4.2 (3.5-5.5) mmol/L Chloride 109 112 H (96-109) mmol/L Carbon Dioxide 23.1 22.3 (21.6-31.8) mmol/L BUN 26.8 22.8 (9.0-27.0) mg/dL Creatinine 2.1 H 1.8 H (0.6-1.5) mg/dL Glucose 98 108 (70-110) mg/dL Calcium 8.9 9.0 (8.7-10.3) mg/dL Total Bilirubin <0.2 L (0.3-1.2) mg/dL AST 27 (13-35) U/L ALT 19 (8-44) U/L Alkaline Phosphatase 84 (41-126) U/L Total Protein 5.6 L (6.2-8.2) g/dL Albumin 3.5 L (3.8-4.9) g/dL
--- NOTE | 2024-06-22 16:30 | P.PN ---
Subjective Progress Note Date: 06/22/24 Principal diagnosis: Reason for follow-up is a complicated UTI Patient is a 68-year-old female with a past medical history significant for hypertension hyperlipidemia osteoarthritis atrial fibrillation presenting to the hospital for evaluation of right-sided abdominal pain, patient did have a CT abdominal pelvis with nondependent gas within the urinary bladder with concern for possible fistula versus emphysematous cystitis. On today's evaluation that is 06/22/2024, the patient continues to be afebrile, the patient is on room air and breathing comfortably, the Pt denies having any chest pain or cough, the patient denies having any nausea or vomiting abdominal pain has decreased in intensity denies passing any air or particles through the urethra. Patient white count 6.14, creatinine is 1.8 urine is growing gram-negative blood culture for negative Objective - Vital Signs Vital signs: Vital Signs Temp 98.3 F 06/22/24 13:42 Pulse 53 L 06/22/24 13:42 Resp 16 06/22/24 13:42 BP 148/54 06/22/24 13:42 Pulse Ox 97 06/22/24 13:42 FiO2 Intake & Output 06/21/24 06/22/24 06/22/24 18:59 06:59 18:59 Intake Total 596 560 298 Balance 596 560 298 Intake: Oral 596 560 298 Other: Voiding Method Toilet Toilet # Voids 4 3 4 - Exam GENERAL DESCRIPTION: An elderly female lying in bed in no distress RESPIRATORY SYSTEM: Unlabored breathing , decreased breath sounds at bases HEART: S1 S2 regular rate and rhythm , ABDOMEN: Soft , no tenderness EXTREMITIES: No edema feet - Labs CBC & Chem 7: 06/22/24 04:30 06/22/24 04:30 Labs: Abnormal Lab Results - Last 24 Hours (Table) 06/21/24 06/22/24 06/22/24 Range/Units 07:02 04:30 04:30 RBC 2.63 L (4.10-5.20) X 10*6/uL Hgb 8.6 L (12.0-15.0) g/dL Hct 27.0 L (37.2-46.3) % MCV 102.7 H (80.0-97.0) FL MCH 32.7 H (27.0-32.0) pg MCHC 31.9 L (32.0-37.0) g/dL RDW 15.0 H (11.5-14.5) % Lymphocytes # 0.66 L (0.90-5.00) X 10*3/uL Chloride 112 H (96-109) mmol/L Creatinine 1.8 H (0.6-1.5) mg/dL Est GFR (CKD-EPI) 30 L (>=60) Iron 42 L (50-170) UG/DL Transferrin 176.0 L (204.0-354.0) mg/dL Microbiology - Last 24 Hours (Table) 06/20/24 15:30 Blood Culture - Preliminary Blood 06/20/24 12:36 Urine Culture - Preliminary Urine,Voided Gram Neg Bacilli Assessment and Plan (1) UTI (urinary tract infection) Current Visit: Yes Status: Acute Code(s): N39.0 - URINARY TRACT INFECTION, SITE NOT SPECIFIED SNOMED Code(s): 69708054 Plan: 1patient presented to hospital with right-sided abdominal pain in this patient who did have significantly positive UA did have abnormal CT with concern for p ossible emphysematous cystitis versus fistula patient to have a history of constipation but no significant diverticulitis or diverticular changes were noticed on the CT patient not reporting any fever or particles/area passage through the urethra will make fistula less likely. 2patient is being followed by urology and will benefit from cystoscopy timing per urology. 3patient urine is growing gram-negative with ID sensitivities pending patient will be treated with Rocephin to 2 g daily while waiting for the culture to finalize. Multiple question concern answered Dictation was produced using Zoom[employer] software. please excuse any grammatical, word or spelling errors.
--- NOTE | 2024-06-22 20:58 | P.PN ---
Subjective This is a pleasant 68 years old female with past medical history of multiple medical problems including hypertension, hyperlipidemia, A-fib on Eliquis and atenolol at home She presents because of abdominal pain Her pain mainly in the right upper quadrant but it happens in episodes, she had 2 episodes over 1 day which make her come to the hospital and currently she denies any pain in that area or tenderness Currently has no other GI complaints, bowel movement okay, no vomiting No chest pain dyspnea or coughing No headache. Patient complains from chronic dizziness and chronic shortness of breath. Patient was not tachypneic during my encounter. She denies weakness or tingling Patient also reports decrease frequency and amount of urination. She was referred to Dr. Dodge about she missed her appointment in more than 1 occasion. She denies suprapubic pain or tenderness Patient also complains from chronic balance problem 06/21 Patient emergently with 2 episodes of right upper quadrant abdominal pain which is resolved Workup was showing gas in the renal bladder and UTI. Patient started on ceftriaxone. Urologist evaluated the patient and recommended outpatient follow- up whether it is due to fistula or gas-forming microorganism. Infectious disease consult was obtained today. Ceftriaxone was increased to 2 g daily Hemoglobin dropped from 10.7 down to 9.2. Patient is on Eliquis for history of A-fib, recommend to hold Eliquis and consult surgery team. Patient recently had colonoscopy with Dr. Lal about 3 weeks ago showing diverticulosis as per patient. I discussed the case with the patient we are going to make her n.p.o. tonight to be evaluated tomorrow by surgery team. Patient informed of these plans and she is agreeable Her creatinine was elevated 2.4 on admission, today 2.1 and felt like creatinine baseline close to 1.5 and continued to improve while on normal saline 75 mL/h I have lengthy discussion with the patient and she agrees with the above plan 06/22 Patient with no much symptoms Hemoglobin keeps dropping today down to 8.6 despite we held her Eliquis yesterday. Surgery team are planning to do EGD tomorrow She is on ceftriaxone for possible gas-forming UTI microorganism with culture growing gram-negative bacilli. Creatinine improving down to 1.8 and we lowered normal saline down to 50 mL/h. Discussed plan with the patient and she is agreeable review of systems CONSTITUTIONAL: No fever, no malaise, no fatigue. HEENT: No recent visual problems or hearing problems. Denied any sore throat. NEUROLOGICAL: No headaches, no weakness, no numbness. HEMATOLOGICAL: Denies any bleeding or petechiae. GENITOURINARY: Denies any burning micturition, frequency, or urgency. MUSCULOSKELETAL/RHEUMATOLOGICAL: Denies any joint pain, swelling, or any muscle pain. ENDOCRINE: Denies any polyuria or polydipsia. Active Medications Generic Name Dose Route Start Last Admin Trade Name Freq PRN Reason Stop Dose Admin Acetaminophen 650 mg 06/20/24 15:30 Acetaminophen Tab 325 Mg Tab PO Q6HR PRN Mild Pain or Fever > 100.5 Hydrocodone Bitart/Acetaminophen 1 each 06/20/24 18:35 06/22/24 19:51 Hydrocodone/Apap 5-325mg 1 Each Tab PO 1 each Q6HR PRN Administration Pain Allopurinol 100 mg 06/21/24 09:00 06/22/24 09:01 Allopurinol 100 Mg Tab PO 100 mg DAILY TAVARES Administration Amiodarone HCl 100 mg 06/21/24 09:00 06/22/24 09:02 Amiodarone 100 Mg Tab PO 100 mg DAILY TAVARES Administration Atenolol 25 mg 06/20/24 21:00 06/22/24 19:52 Atenolol 25 Mg Tab PO 25 mg BID TAVARES Administration Atorvastatin Calcium 40 mg 06/21/24 09:00 06/22/24 09:01 Atorvastatin 40 Mg Tab PO 40 mg DAILY TAVARES Administration Cholecalciferol 50 mcg 06/21/24 09:00 06/22/24 09:02 Cholecalciferol 25 Mcg (1000 Iu) Tablet PO 50 mcg DAILY TAVARES Administration Cyanocobalamin 1,000 mcg 06/21/24 09:00 06/22/24 09:02 Cyanocobalamin 500 Mcg Tab PO 1,000 mcg DAILY TAVARES Administration Ferrous Sulfate 325 mg 06/20/24 21:00 06/22/24 19:52 Ferrous Sulfate 325 Mg Tab PO Not Given HS TAVARES Hydralazine HCl 50 mg 06/20/24 21:00 06/22/24 19:52 Hydralazine Hcl 50 Mg Tab PO 50 mg BID TAVARES Administration Sodium Chloride 1,000 mls @ 50 mls/hr 06/20/24 15:30 06/22/24 19:53 Saline 0.9% IV 75 mls/hr .Q20H TAVARES Administration Ceftriaxone Sodium 2 gm/ 50 mls @ 100 mls/hr 06/21/24 21:00 06/22/24 19:53 Sodium Chloride IVPB 100 mls/hr Q24H TAVARES Administration Protocol Losartan Potassium 100 mg 06/21/24 09:00 06/22/24 09:01 Losartan 50 Mg Tab PO 100 mg DAILY TAVARES Administration Morphine Sulfate 4 mg 06/20/24 15:30 Morphine Sulfate 4 Mg/Ml Syringe IV Q4HR PRN Severe Pain (Scale 7 to 10) Naloxone HCl 0.2 mg 06/20/24 15:30 Naloxone 0.4 Mg/Ml 1 Ml Vial IV Q2M PRN Opioid Reversal Ondansetron HCl 4 mg 06/20/24 15:30 Ondansetron 4 Mg/2 Ml Vial IVP Q8HR PRN Nausea And Vomiting Pantoprazole Sodium 40 mg 06/21/24 19:15 06/22/24 09:01 Pantoprazole 40 Mg/10 Ml Vial IVP 40 mg DAILY TAVARES Administration Torsemide 20 mg 06/21/24 09:00 06/21/24 08:33 Torsemide 20 Mg Tab PO Not Given Q48H TAVARES Objective - Vital Signs Vital signs: Vital Signs Temp 98.3 F 06/22/24 13:42 Pulse 53 L 06/22/24 13:42 Resp 16 06/22/24 13:42 BP 148/54 06/22/24 13:42 Pulse Ox 97 06/22/24 13:42 FiO2 Intake & Output 06/21/24 06/22/24 06/22/24 18:59 06:59 18:59 Intake Total 596 560 298 Balance 596 560 298 Intake: Oral 596 560 298 Other: Voiding Method Toilet Toilet # Voids 4 3 - Exam GENERAL: The patient is alert and oriented x3, not in any acute distress. Well developed, well nourished. HEENT: Pupils are round and equally reacting to light. EOMI. No scleral icterus. No conjunctival pallor. Normocephalic, atraumatic. No pharyngeal erythema. No thyromegaly. CARDIOVASCULAR: S1 and S2 present. No murmurs, rubs, or gallops. PULMONARY: Chest is clear to auscultation, no wheezing , no crackles. ABDOMEN: Soft, nontender, nondistended, normoactive bowel sounds. No palpable organomegaly. MUSCULOSKELETAL: No joint swelling or deformity. EXTREMITIES: No cyanosis, clubbing, or pedal edema. NEUROLOGICAL: Gross neurological examination did not reveal any focal deficits. SKIN: No rashes. no petechiae. - Labs CBC & Chem 7: 06/22/24 04:30 06/22/24 04:30 Labs: Abnormal Lab Results - Last 24 Hours (Table) 06/21/24 06/22/24 06/22/24 Range/Units 07:02 04:30 04:30 RBC 2.63 L (4.10-5.20) X 10*6/uL Hgb 8.6 L (12.0-15.0) g/dL Hct 27.0 L (37.2-46.3) % MCV 102.7 H (80.0-97.0) FL MCH 32.7 H (27.0-32.0) pg MCHC 31.9 L (32.0-37.0) g/dL RDW 15.0 H (11.5-14.5) % Lymphocytes # 0.66 L (0.90-5.00) X 10*3/uL Chloride 112 H (96-109) mmol/L Creatinine 1.8 H (0.6-1.5) mg/dL Est GFR (CKD-EPI) 30 L (>=60) Iron 42 L (50-170) UG/DL Transferrin 176.0 L (204.0-354.0) mg/dL Microbiology - Last 24 Hours (Table) 06/20/24 15:30 Blood Culture - Preliminary Blood 06/20/24 12:36 Urine Culture - Preliminary Urine,Voided Gram Neg Bacilli Assessment and Plan Assessment: Acute UTI. And gas in urinary bladder suspicious for gas-forming M.O versus fistula Acute kidney injury on chronic kidney disease stage III. Improving Anemia with slight drop in hemoglobin, rule out GI bleed Chronic gait imbalance, associated with chronic dizziness as per patient A-fib with controlled rate, on Eliquis at home Microcytic anemia Hypertension Hyperlipidemia Osteoarthritis Plan: Continue with gentle hydration, creatinine is improving Start ceftriaxone and follow-up urine culture. Infectious disease consult o btained. Dr. Dodge recommended outpatient follow-up Consult urology service for abnormal CT of UB Hold Eliquis, continue with PPI and monitor hemoglobin. Consult surgery team. Plan for EGD on 06/23 Her RUQ pain currently is asymptomatic, will keep monitoring Labs and medication were reviewed.. Continue same treatment. Continue with symptomatic treatment. Resume home medication. Monitor labs and vitals. DVT and GI prophylaxis. Further recommendations as per clinical course of the patient DVT prophylaxis: Eliquis on hold GI Prophylaxis: Protonix PT/OT: Pending Prognosis is guarded
[2024-06-23] MEDS ORDERED: PROPOFOL 10 MG/ML 20 ML VIAL IV ONE (07:56)
[2024-06-23] MEDS: IV FLUID CONTINUATION 600 ML IV ONE (07:56)
[2024-06-23] MEDS ORDERED: LIDOCAINE 1% INJ 10MG/ML (20 ML MDV) ONE (07:56)
[2024-06-23] MEDS ORDERED: polyethylene glycoL 3350 17 GM POWD.PACK PO PRN (10:36)
[2024-06-23] MEDS: DOCUSATE 100 MG CAP PO SCH (10:55)
[2024-06-23] MEDS: bisacodyL 5 MG TABLET.DR PO STA (11:44)
[2024-06-23 12:25] LABS: African American GFR (CKD) 33 (>60 ml/min/1.73 sqM); Anion Gap 6 mmol/L; Blood Urea Nitrogen 20 mg/dL (7-17); Calcium 9.9 mg/dL (8.4-10.2); Carbon Dioxide 27 mmol/L (22-30); Chloride 106 mmol/L (98-107); Glucose 91 mg/dL (74-99); Non-African American GFR(CKD) 29 (>60 ml/min/1.73 sqM); Potassium 3.8 mmol/L (3.5-5.1); Sodium 139 mmol/L (137-145)
[2024-06-23 12:37] LABS: Basophils % (A) 0 %; Eosinophils # (A) 0.1 k/uL (0-0.7); Eosinophils % (A) 2 %; HCT 32.1 % (34.0-46.0); HGB 10.4 gm/dL (11.4-16.0); Lymphocytes # (A) 0.7 k/uL (1.0-4.8); Lymphocytes % (A) 9 %; MCH 32.6 pg (25.0-35.0); MCHC 32.3 g/dL (31.0-37.0); MCV 100.7 fL (80.0-100.0); Macrocytosis Slight; Monocytes # (A) 0.4 k/uL (0-1.0); Monocytes % (A) 6 %; Neutrophils % (A) 81 %; Platelet Count 232 k/uL (150-450); RBC 3.19 m/uL (3.80-5.40); RDW 15.3 % (11.5-15.5); WBC 7.4 k/uL (3.8-10.6)
--- NOTE | 2024-06-23 13:57 | P.PN ---
Subjective Progress Note Date: 06/23/24 Principal diagnosis: Reason for follow-up is a complicated UTI Patient is a 68-year-old female with a past medical history significant for hypertension hyperlipidemia osteoarthritis atrial fibrillation presenting to the hospital for evaluation of right-sided abdominal pain, patient did have a CT abdominal pelvis with nondependent gas within the urinary bladder with concern for possible fistula versus emphysematous cystitis. On today's evaluation that is 06/23/2024, Patient is afebrile patient is currently on room air and denies having any shortness of breath, the patient denies any chest pain or cough, the patient denies any nausea vomiting did not have any abdominal pain and no diarrhea mention feeling better. Patient white count 7.4 creatinine 1.78 urine with E. coli sensitive pathogen Objective - Vital Signs Vital signs: Vital Signs Temp 97.6 F 06/23/24 08:20 Pulse 64 06/23/24 08:20 Resp 17 06/23/24 08:20 BP 158/76 06/23/24 08:20 Pulse Ox 96 06/23/24 08:20 FiO2 Intake & Output 06/22/24 06/23/24 06/23/24 18:59 06:59 18:59 Intake Total 889 360 200 Balance 889 360 200 Intake: IV 200 Oral 889 360 Other: Voiding Method Toilet Toilet Toilet # Voids 4 2 - Exam GENERAL DESCRIPTION: An elderly female lying in bed in no distress RESPIRATORY SYSTEM: Unlabored breathing , decreased breath sounds at bases HEART: S1 S2 regular rate and rhythm , ABDOMEN: Soft , no tenderness EXTREMITIES: No edema feet - Labs CBC & Chem 7: 06/23/24 11:52 06/23/24 11:52 Labs: Microbiology - Last 24 Hours (Table) 06/20/24 12:36 Urine Culture - Preliminary Urine,Voided Escherichia coli 06/20/24 15:30 Blood Culture - Preliminary Blood Assessment and Plan (1) UTI (urinary tract infection) Current Visit: Yes Status: Acute Code(s): N39.0 - URINARY TRACT INFECTION, SITE NOT SPECIFIED SNOMED Code(s): 14145294 Plan: 1patient presented to hospital with right-sided abdominal pain in this patient who did have significantly positive UA did have abnormal CT with concern for possible emphysematous cystitis versus fistula patient to have a history of constipation but no significant diverticulitis or diverticular changes were noticed on the CT patient not reporting any fever or particles/area passage through the urethra will make fistula less likely. 2patient is being followed by urology and will benefit from cystoscopy timing per urology. 3patient urine is growing E. coli that is sensitive pathogen 4patient will be treated with Rocephin to 2 g daily while inpatient finishing therapy with oral Ceftin x 7 days on discharge Dictation was produced using [employer] dictation software. please excuse any grammatical, word or spelling errors. Time with Patient: Less than 30
--- NOTE | 2024-06-23 15:45 | P.OP ---
Date of Procedure: 06/23/24 Preoperative Diagnosis: anemia Postoperative Diagnosis: mild hiatal hernia Procedure(s) Performed: EGD Anesthesia: local Surgeon: Anirudh Mcintosh Estimated Blood Loss (ml): 0 Pathology: none sent Condition: stable Disposition: floor Indications for Procedure: anemia Operative Findings: hiatal hernia Description of Procedure: Patient was placed in left lateral decubitus position. A timeout was performed and everyone agreed with information recited. An adult-sized olymposcope was used to traverse the mouth, esophagus, stomach to the second portion of the duodenum. The scope was slowly retracted looking at the mucosa in a ci rcumferential fashion. No ulcers or stigmata of bleeding was observed. There was a mild hiatal hernia observed. The scope was retracted out of the patient intact without difficulty. The patient was transported back to her room, tolerated the procedure well.
[2024-06-23] MEDS: APIXABAN 5 MG TAB PO SCH (19:51)
--- NOTE | 2024-06-24 05:03 | P.PN ---
Subjective This is a pleasant 68 years old female with past medical history of multiple medical problems including hypertension, hyperlipidemia, A-fib on Eliquis and atenolol at home She presents because of abdominal pain Her pain mainly in the right upper quadrant but it happens in episodes, she had 2 episodes over 1 day which make her come to the hospital and currently she denies any pain in that area or tenderness Currently has no other GI complaints, bowel movement okay, no vomiting No chest pain dyspnea or coughing No headache. Patient complains from chronic dizziness and chronic shortness of breath. Patient was not tachypneic during my encounter. She denies weakness or tingling Patient also reports decrease frequency and amount of urination. She was referred to Dr. Dodge about she missed her appointment in more than 1 occasion. She denies suprapubic pain or tenderness Patient also complains from chronic balance problem 06/21 Patient emergently with 2 episodes of right upper quadrant abdominal pain which is resolved Workup was showing gas in the renal bladder and UTI. Patient started on ceftriaxone. Urologist evaluated the patient and recommended outpatient follow- up whether it is due to fistula or gas-forming microorganism. Infectious disease consult was obtained today. Ceftriaxone was increased to 2 g daily Hemoglobin dropped from 10.7 down to 9.2. Patient is on Eliquis for history of A-fib, recommend to hold Eliquis and consult surgery team. Patient recently had colonoscopy with Dr. Lal about 3 weeks ago showing diverticulosis as per patient. I discussed the case with the patient we are going to make her n.p.o. tonight to be evaluated tomorrow by surgery team. Patient informed of these plans and she is agreeable Her creatinine was elevated 2.4 on admission, today 2.1 and felt like creatinine baseline close to 1.5 and continued to improve while on normal saline 75 mL/h I have lengthy discussion with the patient and she agrees with the above plan 06/22 Patient with no much symptoms Hemoglobin keeps dropping today down to 8.6 despite we held her Eliquis yesterday. Surgery team are planning to do EGD tomorrow She is on ceftriaxone for possible gas-forming UTI microorganism with culture growing gram-negative bacilli. Creatinine improving down to 1.8 and we lowered normal saline down to 50 mL/h. Discussed plan with the patient and she is agreeable 06/23 Patient had EGD: Large hiatal hernia, no ulcer Eliquis was resumed Patient cleared for discharge by surgery team We will check hemoglobin tomorrow Hemoglobin dropped to 8.6, however repeat hemoglobin more than 10. Patient still wants to wait till tomorrow morning to recheck hemoglobin prior to discharge. On antibiotics for her UTI, gas-forming. Patient knows she needs to follow-up with urologist as an outpatient for possible UB fistula Creatinine was improving. Follow-up outpatient Objective - Vital Signs Vital signs: Vital Signs Temp 99 F 06/23/24 14:10 Pulse 59 L 06/23/24 14:10 Resp 17 06/23/24 14:10 BP 153/71 06/23/24 14:10 Pulse Ox 97 06/23/24 14:10 FiO2 Intake & Output 06/22/24 06/23/24 06/23/24 18:59 06:59 18:59 Intake Total 889 360 200 Balance 889 360 200 Intake: IV 200 Oral 889 360 Other: Voiding Method Toilet Toilet Toilet # Voids 4 2 10 - Exam GENERAL: The patient is alert and oriented x3, not in any acute distress. Well developed, well nourished. HEENT: Pupils are round and equally reacting to light. EOMI. No scleral icterus. No conjunctival pallor. Normocephalic, atraumatic. No pharyngeal erythema. No thyromegaly. CARDIOVASCULAR: S1 and S2 present. No murmurs, rubs, or gallops. PULMONARY: Chest is clear to auscultation, no wheezing , no crackles. ABDOMEN: Soft, nontender, nondistended, normoactive bowel sounds. No palpable organomegaly. MUSCULOSKELETAL: No joint swelling or deformity. EXTREMITIES: No cyanosis, clubbing, or pedal edema. NEUROLOGICAL: Gross neurological examination did not reveal any focal deficits. SKIN: No rashes. no petechiae. - Labs CBC & Chem 7: 06/23/24 11:52 06/23/24 11:52 Labs: Abnormal Lab Results - Last 24 Hours (Table) 06/23/24 06/23/24 Range/Units 11:52 11:52 RBC 3.19 L (3.80-5.40) m/uL Hgb 10.4 L (11.4-16.0) gm/dL Hct 32.1 L (34.0-46.0) % MCV 100.7 H (80.0-100.0) fL Lymphocytes # 0.7 L (1.0-4.8) k/uL BUN 20 H (7-17) mg/dL Creatinine 1.78 H (0.52-1.04) mg/dL Microbiology - Last 24 Hours (Table) 06/20/24 12:36 Urine Culture - Preliminary Urine,Voided Escherichia coli 06/20/24 15:30 Blood Culture - Preliminary Blood Assessment and Plan Assessment: Acute UTI. And gas in urinary bladder suspicious for gas-forming M.O versus fistula Acute kidney injury on chronic kidney disease stage III. Improving Anemia with slight drop in hemoglobin, rule out GI bleed Chronic gait imbalance, associated with chronic dizziness as per patient A-fib with controlled rate, on Eliquis at home Microcytic anemia Hypertension Hyperlipidemia Osteoarthritis Plan: Continue with gentle hydration, creatinine is improving Start ceftriaxone and follow-up urine culture. Infectious disease consult obtained. Dr. Dodge recommended outpatient follow-up Consult urology service for abnormal CT of UB Resume Eliquis, continue with PPI and monitor hemoglobin. Consult surgery team. EGD on 06/23 Her RUQ pain currently is asymptomatic, will keep monitoring Labs and medication were reviewed.. Continue same treatment. Continue with symptomatic treatment. Resume home medication. Monitor labs and vitals. DVT and GI prophylaxis. Further recommendations as per clinical course of the patient DVT prophylaxis: Eliquis on hold GI Prophylaxis: Protonix PT/OT: Pending Prognosis is guarded
[2024-06-24 07:36] VITALS: RESP 16
[2024-06-24 08:38] LABS: HCT 30.7 % (37.2-46.3); HGB 9.9 g/dL (12.0-15.0); MCH 32.8 pg (27.0-32.0); MCHC 32.2 g/dL (32.0-37.0); MCV 101.7 FL (80.0-97.0); Mean Platelet Volume 10.7 FL (9.5-12.2); NRBC Per 100 WBC 0 X 10*3/uL (0.00-0.01); Platelet Count 208 X 10*3/uL (140-440); RBC 3.02 X 10*6/uL (4.10-5.20); RDW 15.2 % (11.5-14.5); WBC 5.29 X 10*3/uL (4.50-10.00)
[2024-06-24 11:05] LABS: African American GFR (CKD) 31 (>60 ml/min/1.73 sqM); Anion Gap 6 mmol/L; Blood Urea Nitrogen 26 mg/dL (7-17); Calcium 9.9 mg/dL (8.4-10.2); Carbon Dioxide 27 mmol/L (22-30); Chloride 106 mmol/L (98-107); Glucose 89 mg/dL (74-99); Non-African American GFR(CKD) 27 (>60 ml/min/1.73 sqM); Potassium 3.8 mmol/L (3.5-5.1); Sodium 139 mmol/L (137-145)
--- NOTE | 2024-06-24 13:07 | P.PN ---
Subjective Progress Note Date: 06/24/24 SURGICAL PROGRESS NOTE CHIEF COMPLAINT: Abdominal pain HISTORY OF PRESENT ILLNESS: Patient currently denies any abdominal pain. Patient has been having black stools. Denies any further black stools. Had EGD yesterday reporting mild hiatal hernia. Patient denies passing any air or stool through her urethra. Her last colonoscopy was in April 2024 reporting diverticulosis and poor colon prep. Her stool for occult blood is positive. Hemoglobin trending down from 10.4-9.9. WBC is 5.29. Patient on antibiotics for UTI PHYSICAL EXAM: VITAL SIGNS: Reviewed. GENERAL: Well-developed in no acute distress. ABDOMEN: Soft. Nondistended. Nontender. NEUROLOGIC: Alert and oriented. Cranial nerves II through XII grossly intact. ASSESSMENT: 1. Abdominal pain 2. Anemia 3. UTI 4. Status post EGD reporting a mild hiatal hernia 5. ctap demonstrates air within bladder, suspicious for colovesicular fistula, however patient is clinically asymptomatic PLAN: -No plans for colonoscopy at this time -Continue to monitor hemoglobin -Continue to monitor for any signs or symptoms of bleeding Physician Clinical Recruiter note has been reviewed by physician. Signing provider agrees with the documented findings, assessment, and plan of care. Objective - Vital Signs Vital signs: Vital Signs Temp 97.7 F 06/24/24 07:20 Pulse 57 L 06/24/24 07:20 Resp 16 06/24/24 07:20 BP 165/71 06/24/24 07:20 Pulse Ox 99 06/24/24 07:20 FiO2 Intake & Output 06/23/24 06/24/24 06/24/24 18:59 06:59 18:59 Intake Total 200 540 240 Balance 200 540 240 Intake: IV 200 Oral 540 240 Other: Voiding Method Toilet Toilet # Voids 10 2 - Labs CBC & Chem 7: 06/24/24 05:51 06/24/24 10:21 Labs: Abnormal Lab Results - Last 24 Hours (Table) 06/23/24 06/24/24 06/24/24 Range/Units 21:00 05:51 10:21 RBC 3.02 L (4.10-5.20) X 10*6/uL Hgb 9.9 L (12.0-15.0) g/dL Hct 30.7 L (37.2-46.3) % MCV 101.7 H (80.0-97.0) FL MCH 32.8 H (27.0-32.0) pg RDW 15.2 H (11.5-14.5) % BUN 26 H (7-17) mg/dL Creatinine 1.87 H (0.52-1.04) mg/dL Stool Occult Blood Positive H (Negative) Microbiology - Last 24 Hours (Table) 06/20/24 15:30 Blood Culture - Preliminary Blood 06/20/24 12:36 Urine Culture - Final Urine,Voided Escherichia coli Klebsiella pneumoniae Assessment and Plan Assessment: stable for discharge Time with Patient: Less than 30
[2024-06-24 14:22] VITALS: BP 149/70; PULSE 55; TEMP 98.1
--- NOTE | 2024-06-24 20:53 | P.PN ---
Subjective Progress Note Date: 06/24/24 Principal diagnosis: Reason for follow-up is a complicated UTI Patient is a 68-year-old female with a past medical history significant for hypertension hyperlipidemia osteoarthritis atrial fibrillation presenting to the hospital for evaluation of right-sided abdominal pain, patient did have a CT abdominal pelvis with nondependent gas within the urinary bladder with concern for possible fistula versus emphysematous cystitis. On today's evaluation that is 06/24/2024, patient has been afebrile, patient is breathing comfortably and is currently on room air, patient denies having any significant cough no chest pain, patient denies nausea vomiting or diarrhea and no abdominal pain. Patient white count is 5.29 creat is 1.87 urine with E. coli and Klebsiella both sensitive to ceftriaxone Objective - Vital Signs Vital signs: Vital Signs Temp 97.7 F 06/24/24 07:20 Pulse 57 L 06/24/24 07:20 Resp 16 06/24/24 07:20 BP 165/71 06/24/24 07:20 Pulse Ox 99 06/24/24 07:20 FiO2 Intake & Output 06/23/24 06/24/24 06/24/24 18:59 06:59 18:59 Intake Total 200 540 240 Balance 200 540 240 Intake: IV 200 Oral 540 240 Other: Voiding Method Toilet Toilet # Voids 10 2 - Exam GENERAL DESCRIPTION: An elderly female lying in bed in no distress RESPIRATORY SYSTEM: Unlabored breathing , decreased breath sounds at bases HEART: S1 S2 regular rate and rhythm , ABDOMEN: Soft , no tenderness EXTREMITIES: No edema feet - Labs CBC & Chem 7: 06/24/24 05:51 06/24/24 10:21 Labs: Abnormal Lab Results - Last 24 Hours (Table) 06/23/24 06/23/24 06/23/24 Range/Units 11:52 11:52 21:00 RBC 3.19 L (3.80-5.40) m/uL Hgb 10.4 L (11.4-16.0) gm/dL Hct 32.1 L (34.0-46.0) % MCV 100.7 H (80.0-100.0) fL MCH (27.0-32.0) pg RDW (11.5-14.5) % Lymphocytes # 0.7 L (1.0-4.8) k/uL BUN 20 H (7-17) mg/dL Creatinine 1.78 H (0.52-1.04) mg/dL Stool Occult Blood Positive H (Negative) 06/24/24 Range/Units 05:51 RBC 3.02 L (3.80-5.40) m/uL Hgb 9.9 L (11.4-16.0) gm/dL Hct 30.7 L (34.0-46.0) % MCV 101.7 H (80.0-100.0) fL MCH 32.8 H (27.0-32.0) pg RDW 15.2 H (11.5-14.5) % Lymphocytes # (1.0-4.8) k/uL BUN (7-17) mg/dL Creatinine (0.52-1.04) mg/dL Stool Occult Blood (Negative) Microbiology - Last 24 Hours (Table) 06/20/24 15:30 Blood Culture - Preliminary Blood 06/20/24 12:36 Urine Culture - Final Urine,Voided Escherichia coli Klebsiella pneumoniae Assessment and Plan (1) UTI (urinary tract infection) Status: Acute Code(s): N39.0 - URINARY TRACT INFECTION, SITE NOT SPECIFIED SNOMED Code(s): 18422647 Plan: 1patient presented to hospital with right-sided abdominal pain in this patient who did have significantly positive UA did have abnormal CT with concern for possible emphysematous cystitis versus fistula patient to have a history of constipation but no significant diverticulitis or diverticular changes were noticed on the CT patient not reporting any fever or particles/area passage through the urethra will make fistula less likely. 2patient is being followed by urology and will benefit from cystoscopy timing per urology. 3patient urine is growing E. coli as well as Klebsiella that is sensitive pathogen and sensitive to ceftriaxone 4patient did have clinical improvement and will finish therapy with oral Ceftin x 7 days on discharge Dictation was produced using [employer] dictation software. please excuse any gra mmatical, word or spelling errors. Time with Patient: Less than 30
== END 2024-06-24 17:43 | disposition home or self-care (01) | DRG 690 ==
LOC: EC 11:22 → 6NMEDSUR 14:40 → OBSVTOIN 06-21 19:04
PROVIDERS: ADMIT Internal Medicine; ATTEND Internal Medicine
PROC: 0DJ08ZZ Inspection of Upper Intestinal Tract, Via Natural or Artificial Opening Endoscopic (ICD-10-PCS; principal; 2024-06-23 08:00)
DX: N39.0 Urinary tract infection, site not specified (principal); N17.9 Acute kidney failure, unspecified; E78.5 Hyperlipidemia, unspecified; N18.32 Chronic kidney disease, stage 3b; I12.9 Hypertensive chronic kidney disease with stage 1 through stage 4 chronic kidney disease, or unspecified chronic kidney disease; K57.30 Diverticulosis of large intestine without perforation or abscess without bleeding; N32.89 Other specified disorders of bladder; D63.1 Anemia in chronic kidney disease; I48.91 Unspecified atrial fibrillation; R26.9 Unspecified abnormalities of gait and mobility; D50.9 Iron deficiency anemia, unspecified; K44.9 Diaphragmatic hernia without obstruction or gangrene; M16.10 Unilateral primary osteoarthritis, unspecified hip; Z87.891 Personal history of nicotine dependence; Z88.1 Allergy status to other antibiotic agents; Z91.030 Bee allergy status; Z88.8 Allergy status to other drugs, medicaments and biological substances; Z79.01 Long term (current) use of anticoagulants
CPT/HCPCS: 36415; 43235; 71046; 74176; 80048; 80053; 80076; 81001; 82150; 82272; 82607; 82728; 82746; 83540; 83550; 83605; 83690; 85025; 85027; 85610; 85730; 87040; 87077; 87086; 87186; 93005; 96361; 96365; 99285

== ENCOUNTER → 2024-09-09 | Outpatient (CLI) | payer MEDICARE ==
--- NOTE | 2024-09-09 14:25 | MM ---
Reason for Exam: Screening (asymptomatic). Last mammogram was performed 1 year(s) and 2 month(s) ago. Patient History: Menarche at age 9. First Full-Term at age 18. Postmenopausal. Patient used Hormonal Contraceptives for 10 years. Maternal grandmother had breast cancer, age 48. Risk Values: Gricelda 5 year model risk: 1.7%. NCI Lifetime model risk: 5.0%. Prior Study Comparison: 07/21/2023 Bilateral MG 3D screening mammo w/cad, [facility]. 07/31/2023 Right MG 3D work up w/cad RT, [facility]. 01/04/2024 Right MG 3D diag mammo w/cad RT, [facility]. Tissue Density: There are scattered areas of fibroglandular density. Findings: Analyzed By CAD. Benign vascular calcifications on the right. There is no suspicious group of microcalcifications or new suspicious mass in either breast. Overall Assessment: Negative, BI-RAD 1 Management: Screening Mammogram of both breasts in 1 year. Patient should continue monthly self-breast exams. A clinical breast exam by your physician is recommended on an annual basis. This exam should not preclude additional follow-up of suspicious palpable abnormalities. Note on Gricelda scores and lifetime risk: 1. A Gricelda score greater than 3% is considered moderate risk. If this is the case, consider specialist referral to assess eligibility for a risk reducing agent. 2. If overall lifetime risk for the development of breast cancer is 20% or higher, the patient may qualify for future screening with alternating mammogram and breast MRI. [facility], , 09/09/2024 2:23 PM. Electronically signed and approved by: Oswald Reaves M.D. Radiologist
--- NOTE | 2024-09-17 07:59 | BD ---
EXAMINATION TYPE: Axial Bone Density DATE OF EXAM: 09/09/2024 CLINICAL HISTORY: 68 years old Female. ICD-10 CODE: N95.8 OTHER SPECIFIED MENOPAUSAL , Additional H istory: Height: 5 ft 4 in Weight: 160 FRAX RISK QUESTIONS: Alcohol (3 or more units per day): no Family History (Parent hip fracture): no Glucocorticoids (More than 3mos): no (Ex: prednisone, prednisolone, methylprednisolone, dexamethasone, and hydrocortisone). History of Fracture in Adulthood: yes Secondary Osteoporosis: 1. Type 1 Diabetes: no 2. Hyperthyroidism: no 3. Menopause before 45: no 4. Malnutrition: no 5. Chronic liver disease: no Rheumatoid Arthritis: no Current Tobacco Use: no RISK FACTORS HISTORY OF: History of Wrist Fracture: left When: 10 years ago Surgery to Spine/Hip(right/left)/Wrist (right/left): no MEDICATIONS: Thyroid Medications: none Osteoporosis Medications: none EXAM MEASUREMENTS: Bone mineral densitometry was performed using the [employer]. Bone mineral density as measured about the Lumbar spine is: ----- L1-L4(G/cm2): 1.283 T Score Values are as follows: ----- L1: 0.0 ----- L2: 1.5 ----- L3: 0.6 ----- L4: 1.2 ----- L1-L4: 0.9 Z Score Values are as follows: ----- L1: 1.4 ----- L2: 2.9 ----- L3: 2.0 ----- L4: 2.6 ----- L1-L4: 2.3 Bone mineral density has: increased 13.6 % since study of: 2020 Bone mineral density about the R hip (g/cm2): 0.797 Bone mineral density about the L hip (g/cm2): 0.767 T Score values are as follows: -----R Neck: -1.7 -----L Neck: -2.0 -----R Total: -1.8 -----L Total: -2.0 Z Score values are as follows: -----R Neck: -0.2 -----L Neck: -0.4 -----R Total: -0.5 -----L Total: -0.7 Bone mineral density has: decreased -5.2 % since study of: 2020 FRAX%s: The graph provided illustrates a 18.5 % chance for a major osteoporotic fx and a 3.5 % chance for the hips probability for fx in 10 years time. IMPRESSION: Osteopenia (T Score between -2.5 and -1). There is slightly increased risk of fracture and the patient may be considered for treatment. Re-Screen 2-5 years. NOTE: T-SCORE=SD OF THE YOUNG ADULT MEAN. [facility], , 09/17/2024 7:57 AM
== END | disposition home or self-care (01) ==
LOC: RADBDWWP 12:12
PROVIDERS: ATTEND Internal Medicine
DX: Z12.31 Encounter for screening mammogram for malignant neoplasm of breast (principal); N95.8 Other specified menopausal and perimenopausal disorders; M85.89 Other specified disorders of bone density and structure, multiple sites; R92.323 Mammographic fibroglandular density, bilateral breasts; R92.1 Mammographic calcification found on diagnostic imaging of breast; Z78.0 Asymptomatic menopausal state; Z80.3 Family history of malignant neoplasm of breast
CPT/HCPCS: 77063; 77067; 77080

== ENCOUNTER → 2024-10-10 | Outpatient (CLI) | payer MEDICARE ==
[2024-10-10 18:42] LABS: HCT 38.6 % (37.2-46.3); HGB 12.4 g/dL (12.0-15.0); MCH 31.6 pg (27.0-32.0); MCHC 32.1 g/dL (32.0-37.0); MCV 98.5 FL (80.0-97.0); Mean Platelet Volume 10.9 FL (9.5-12.2); NRBC Per 100 WBC 0 X 10*3/uL (0.00-0.01); Platelet Count 231 X 10*3/uL (140-440); RBC 3.92 X 10*6/uL (4.10-5.20); RDW 14.9 % (11.5-14.5); WBC 9.37 X 10*3/uL (4.50-10.00)
[2024-10-10 18:51] LABS: Carbon Dioxide 25.6 mmol/L (21.6-31.8); Chloride 102 mmol/L (96-109); Potassium 3.4 mmol/L (3.5-5.5); Sodium 139 mmol/L (135-145)
== END | disposition home or self-care (01) ==
LOC: LABWHC1 15:17
PROVIDERS: ATTEND Internal Medicine Clinical Cardiac Electrophysiology
DX: Z01.812 Encounter for preprocedural laboratory examination (principal); I48.20 Chronic atrial fibrillation, unspecified
CPT/HCPCS: 80051; 82565; 84520; 85027

== ENCOUNTER 2024-10-17 09:42 | Day surgery (SDC) | payer MEDICARE, OTHER ==
[2024-10-16 09:02] VITALS: BMI 27.4
[2024-10-17] MEDS: SODIUM CHLORIDE 0.9% 1,000 ML IV SCH (09:57)
[2024-10-17] MEDS: IV FLUID CONTINUATION 1,000 ML IV ONE (10:00)
[2024-10-17 10:18] LABS: Basophils % (A) 0 %; Eosinophils # (A) 0.2 k/uL (0-0.7); Eosinophils % (A) 2 %; HCT 38.4 % (34.0-46.0); HGB 12.4 gm/dL (11.4-16.0); Lymphocytes # (A) 0.9 k/uL (1.0-4.8); Lymphocytes % (A) 10 %; MCH 31.8 pg (25.0-35.0); MCHC 32.3 g/dL (31.0-37.0); MCV 98.4 fL (80.0-100.0); Mean Platelet Volume 7.6; Monocytes # (A) 0.5 k/uL (0-1.0); Monocytes % (A) 5 %; Neutrophils # (A) 7.7 k/uL (1.3-7.7); Neutrophils % (A) 82 %; Platelet Count 231 k/uL (150-450); RDW 14.6 % (11.5-15.5); WBC 9.4 k/uL (3.8-10.6)
[2024-10-17 10:27] LABS: ALT 24 U/L (4-34); AST 27 U/L (14-36); African American GFR (CKD) 45 (>60 ml/min/1.73 sqM); Albumin 4.3 g/dL (3.5-5.0); Alkaline Phosphatase 108 U/L (38-126); Anion Gap 9 mmol/L; Blood Urea Nitrogen 30 mg/dL (7-17); Calcium 9.5 mg/dL (8.4-10.2); Carbon Dioxide 24 mmol/L (22-30); Chloride 106 mmol/L (98-107); Glucose 90 mg/dL (74-99); Non-African American GFR(CKD) 39 (>60 ml/min/1.73 sqM); Potassium 3.7 mmol/L (3.5-5.1); Sodium 139 mmol/L (137-145); Total Bilirubin 0.8 mg/dL (0.2-1.3); Total Protein 7.4 g/dL (6.3-8.2)
[2024-10-17] MEDS: MIDAZOLAM 2 MG/2 ML VIAL IV ONE (10:35)
[2024-10-17] MEDS: MIDAZOLAM HCL 10 MG/10 ML VIAL IVP ONE (10:40)
[2024-10-17] MEDS ORDERED: MIDAZOLAM 2 MG/2 ML VIAL ONE (11:46)
[2024-10-17] MEDS ORDERED: HEPARIN SODIUM,PORCINE 5,000 UNIT/ML 1 ML VIAL ONE (11:46)
[2024-10-17] MEDS ORDERED: HEPARIN SODIUM,PORCINE 10,000 UNIT/ML 1 ML VIAL ONE (11:46)
[2024-10-17] MEDS ORDERED: ROCURONIUM 10 MG/ML (5 ML VIAL) IV ONE (11:46)
[2024-10-17] MEDS ORDERED: SUCCINYLCHOLINE CHLORIDE 200 MG/10 ML VIAL IV ONE (11:46)
[2024-10-17] MEDS ORDERED: PROPOFOL 10 MG/ML 20 ML VIAL IV ONE (11:46)
[2024-10-17] MEDS ORDERED: fentaNYL (PF) 50 MCG/ML 2 ML AMP ONE (11:46)
--- NOTE | 2024-10-17 12:02 | P.HPCAR ---
History of Present Illness This is Dr. Redman dictating an H/P on this patient The patient was interviewed and examined IMPRESSION / ASSESSMENT: Persistent atrial fibrillation Valvular heart disease with moderate severe mitral regurgitation Biatrial enlargement RV enlargement CKD, GFR 39 PLAN: EP study, A-fib ablation Heparin dose calculated Continue Eliquis HPI Patient complains of shortness of breath fatigue She remains in atrial fibrillation She is also on oral amiodarone at 100 mg p.o. daily She denies any fever chills cough expectoration She denies any syncopal spells in the last 1 to 2 weeks No angina ROS: No fever chills or rigors, no cough, phlegm or expectoration, no nausea, vomiting or diarrhea, no hematuria, dysuria, no musculoskeletal complaints, no strokes or seizures, no skin lesions. EXAMINATION: Pulse rate 55 beats a minute blood pressure 191/83 Normal heart sounds, soft systolic murmur Clear lungs no rhonchi no crackles REVIEW OF LABS, ECG & MEDICAL DATA Hemoglobin 12.4 Sodium 139 potassium 3.7 BUN 30 and creatinine 1.37, renal function stable TSH 1.5, normal Physical Exam Vitals: Vital Signs Temp Pulse Resp BP Pulse Ox 10/17/24 10:49 98.2 F 55 L 16 191/83 97 Intake and Output 10/16/24 10/17/24 10/17/24 22:59 06:59 14:59 Other: Weight 75.1 kg Past Medical History Past Medical History: Atrial Fibrillation, Hyperlipidemia, Hypertension, Osteoarthritis (OA), Renal Disease, Skin Disorder Additional Past Medical History / Comment(s): See Cardiology H&P. Occasional SOB, eczema, bilateral hip arthritis, bursitis, and pain, frequent falls, uses a cane or walker but loses balance with dizziness and lightheadedness, chronic kidney disease stage 3B. History of Any Multi-Drug Resistant Organisms: None Reported Past Surgical History: Appendectomy, Orthopedic Surgery, Tubal Ligation Additional Past Surgical History / Comment(s): Bilateral cataract surgery, right shoulder surgery, cardioversion, varicose veins removed. Past Anesthesia/Blood Transfusion Reactions: No Reported Reaction, Motion Sickness Smoking Status: Former smoker - Past Family History Mother Family Medical History: AFIB Father Family Medical History: Congestive Heart Failure (CHF) Sister(s) Family Medical History: Cancer Physical Examination Vital Signs Temp Pulse Resp BP Pulse Ox 10/17/24 10:49 98.2 F 55 L 16 191/83 97 Intake and Output 10/16/24 10/17/24 10/17/24 22:59 06:59 14:59 Other: Weight 75.1 kg Results 10/17/24 09:52 10/17/24 09:52 Cardiac Enzymes 10/17/24 Range/Units 09:52 AST 27 (14-36) U/L CBC 10/17/24 Range/Units 09:52 WBC 9.4 (3.8-10.6) k/uL RBC 3.90 (3.80-5.40) m/uL Hgb 12.4 (11.4-16.0) gm/dL Hct 38.4 (34.0-46.0) % Plt Count 231 (150-450) k/uL Comprehensive Metabolic Panel 10/17/24 Range/Units 09:52 Sodium 139 (137-145) mmol/L Potassium 3.7 (3.5-5.1) mmol/L Chloride 106 (98-107) mmol/L Carbon Dioxide 24 (22-30) mmol/L BUN 30 H (7-17) mg/dL Creatinine 1.37 H (0.52-1.04) mg/dL Glucose 90 (74-99) mg/dL Calcium 9.5 (8.4-10.2) mg/dL AST 27 (14-36) U/L ALT 24 (4-34) U/L Alkaline Phosphatase 108 (38-126) U/L Total Protein 7.4 (6.3-8.2) g/dL Albumin 4.3 (3.5-5.0) g/dL Current Medications Generic Name Dose Route Start Last Admin Trade Name Freq PRN Reason Stop Dose Admin Sodium Chloride 1,000 mls @ 20 mls/hr 10/17/24 05:46 10/17/24 09:57 Saline 0.9% IV 11/16/24 05:45 20 mls/hr .Q24H TAVARES Administration Intake and Output 10/16/24 10/17/24 10/17/24 22:59 06:59 14:59 Other: Weight 75.1 kg Patient Weight 10/18/24 06:59 Weight 75.1 kg 10/17/24 09:52 10/17/24 09:52
[2024-10-17] MEDS: HEPARIN SOD,PORK IN 0.45% NACL 25,000 UNIT in 0.45% NACL 1 250ML.BAG IV ONE ×2 (12:13→12:31)
[2024-10-17] MEDS: LIDOCAINE 1% INJ 10MG/ML (20 ML MDV) SQ ONE (12:26)
[2024-10-17] MEDS: HEPARIN SODIUM,PORCINE 10,000 UNIT in SODIUM CHLORIDE 0.9% 1,000 ML IRRIGATION ONE (12:48)
[2024-10-17] MEDS: HEPARIN SODIUM,PORCINE (1 ML) 2,500 UNIT in SODIUM CHLORIDE 0.9% 250 ML IRRIGATION ONE (12:48)
[2024-10-17] MEDS: IOPAMIDOL-370 100ML BTL INJ ONE (14:19)
--- NOTE | 2024-10-17 15:54 | P.EPPROC ---
- EP Procedure Note Electrophysiology Procedure Note: PROCEDURE A. fib ablation with antral level PVI, left atrial roof ablation, left atrial septal ablation with cryoablation Ablation for mitral reentry, anterior mitral line using RF DIAGNOSIS Persistent atrial fibrillation, symptomatic, refractory to therapy RESULT No left atrial appendage mass seen on intracardiac echo, preserved LV systolic function, enlarged left atrium Successful A. fib ablation/pulmonary vein isolation of all veins using cryo- ablation Complete entrance block in all 4 veins confirmed No evidence for phrenic nerve injury Left atrial septal ablation Left atrial roof ablation RF ablation for mitral reentry, anterior left atrial wall RF line Esophageal deflection YES PROCEDURE DETAILS Written informed consent prior to procedure. Patient brought to the EP lab. General anesthesia given. Heparin administered. A city maintained above 300 seconds Both groins prepped and draped per protocol and venous sheaths placed. Esophagus intubated, circa catheter for temperature monitoring an endoscope for possible esophageal deflection. Phrenic nerve monitoring performed. Esophageal temperature monitoring performed. Esophageal deflection performed if circa catheter overlapping with the balloon or circa temperature less than 27.5C Intracardiac echocardiography performed. Pericardium evaluated. Left atrial appendage evaluated. Left atrium evaluated along with pulmonary veins Transseptal catheterization performed under fluoroscopic guidance and intracardiac echo guidance Cryoablation sheath exchanged, balloon catheter along with achieve catheter placed in the left atrium. Pulmonary veins isolated in the following sequence: Left superior pulmonary vein followed by left inferior pulmonary vein, followed by right inferior pulmonary vein and lastly right superior pulmonary vein. Phrenic nerve stimulation along with capture thresholds within the SVC and right superior pulmonary vein to identify the phrenic nerve proximity to the cryo- balloon. Pulmonary veins isolated and confirmed with entrance and exit block. Phrenic nerve integrity confirmed at the end of the procedure Ablation of the left atrial roof performed with sequential lesions from the left superior to the right superior pulmonary veins. Ablation of the electrograms c onfirmed Ablation of the left atrial septum performed with cannulation of the superior branch of the right inferior to achieve ablation of the posterior septum of the left atrium. Ablation of electrograms confirmed Voltage mapping performed with the Penta ray and complete electrical quiescence in the pulmonary veins as well as there antra, left atrial septum and left atrial roof/upper posterior wall Pacing maneuvers resulted in induction of an atrial tachycardia with upright P waves in leads V1, eccentric activation in the coronary sinus poles consistent with mitral reentry Termination, mechanical, close to the mitral annulus anteriorly RF ablation was performed from the left atrial roof to the mitral annulus. A complete line of block was made Noncapture at high output was confirmed along the line Additional anterior roofline was performed with RF Left and right transseptal catheterization performed LA pressure: 15/10/12 Diagnostic EP study with coronary sinus pacing and recording Baseline measurements: WA interval 209 ms, QRS 114, QT 543 ms AH 116 ms, HV interval 71 ms Sinus node recovery times at a pacing cycle length of 600 ms was 811 ms. Sinus node entrance block noted With high right atrial pacing atrial flutter, left atrial, was induced This was consistent with mitral reentry. RF ablation was performed on the anterior LA wall Mechanical termination occurred close to the mitral annulus anteriorly. Complete line of block with noncapture at high output along the line Venous sheaths were removed and hemostasis assured with a closure device. Patient extubated and transferred to recovery Increase procedural time During ablation multiple attempts had to be made to move the esophagus a safe distance of the from the pulmonary vein draining cryoablation, to avoid excessive thermal cooling of the esophagus This took extra time and effort to keep the esophagus a safe distance away from the cryoablation balloon. Very large left atrium. Very long roofline that required extra effort and time. First cryoablation was performed along the upper posterior wall on account of the anatomy of the left atrium Later an additional RF line was made along the anterior wall/left atrial roof junction Multiple attempts needed for successful cryoablation isolation of the right superior pulmonary vein, large vein PROCEDURES PERFORMED Diagnostic EP study CS pacing and recording Left and right transseptal catheterization Catheter the mapping of the tachycardia Intracardiac echocardiography Pulmonary vein isolation with transseptal and comprehensive EPS, [id number] Extended procedure duration, modifier 22 Left atrial roof line, +[id number] Linear ablation, left atrium, +50111 Ablation of mitral reentry/left atrial reentry with RF energy, +03061
--- NOTE | 2024-10-17 15:55 | P.PRLE ---
RE: Jaye Godinez Dear Kim Cee underwent successful A-fib ablation with pulm vein isolation, left atrial roof ablation, left atrial septal ablation and then subsequently be induced mitral reentry. Successful ablation was performed for this I am very hopeful that she will now remain in sinus rhythm. I would still continue low-dose amiodarone and I would back off on this very slowly I have reduced the dose of atenolol to 25 mg once daily She will continue Eliquis uninterrupted especially for the next 2 months My thank you Thank you for entrusting me with the care of the patient Warm regards Sincerely Wilmer Redman
[2024-10-17] MEDS: ACETAMINOPHEN IV (For NPO) 1,000 MG in EMPTY BAG 1 BAG IVPB ONE (17:33)
[2024-10-17] MEDS: FUROSEMIDE 40 MG TAB PO SCH (17:58)
[2024-10-17] MEDS: HYDROcodone/APAP 5-325MG 1 EACH TAB PO STA (17:58)
[2024-10-17] MEDS: hydrALAZINE HCL 50 MG TAB PO SCH (17:58)
[2024-10-17] MEDS: ACETAMINOPHEN TAB 325 MG TAB PO PRN (21:02)
[2024-10-17] MEDS: AMIODARONE 100 MG TAB PO SCH (21:03)
[2024-10-17] MEDS: APIXABAN 5 MG TAB PO SCH (21:03)
[2024-10-18 07:41] VITALS: BP 147/77; PULSE 65; RESP 16; TEMP 98.5
[2024-10-18] MEDS: ATORVASTATIN 40 MG TAB PO SCH (09:19)
[2024-10-18] MEDS: LOSARTAN 50 MG TAB PO SCH (09:20)
--- NOTE | 2024-10-23 11:41 | P.DS ---
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 with RF Voltage mapping revealed quiescence within all pulmonary veins and there antra, left atrial septum posteriorly and left atrial roof Noncapture along anterior mitral isthmus line with high output pacing Plan Continue anticoagulation continue all other medications may go home today and follow-up in the office in 1 week Plan - Discharge Summary Discharge Rx Participant: No New Discharge Prescriptions: New RX: atenoloL [Tenormin] 25 mg PO DAILY #90 tab Discontinued RX: atenoloL [Tenormin] 25 mg PO BID No Action RX: Cyanocobalamin (Vitamin B-12) [Vitamin B-12] 1,000 mcg PO DAILY RX: Losartan Potassium 100 mg PO DAILY RX: Rosuvastatin [Crestor] 20 mg PO DAILY RX: Cholecalciferol (Vitamin D3) [Vitamin D3 (50 Mcg = 2000 Iu)] 50 mcg PO DAILY RX: Alendronate Sodium 70 mg PO TU RX: hydrALAZINE HCL 50 mg PO TID RX: Torsemide [Demadex] 20 mg PO Q48H RX: Apixaban [Eliquis] 5 mg PO BID RX: Amiodarone [Cordarone] 100 mg PO HS RX: allopurinoL 100 mg PO DAILY Turmeric 538mg 1 cap PO DAILY Iron 60 mg PO BID Discharge Medication List RX: Cyanocobalamin (Vitamin B-12) [Vitamin B-12] 1,000 mcg PO DAILY 02/28/20 [History] RX: Amiodarone [Cordarone] 100 mg PO HS 10/07/22 [History] RX: Apixaban [Eliquis] 5 mg PO BID 10/07/22 [History] RX: Losartan Potassium 100 mg PO DAILY 10/07/22 [History] RX: Torsemide [Demadex] 20 mg PO Q48H 10/07/22 [History] RX: hydrALAZINE HCL 50 mg PO TID 10/07/22 [History] RX: Rosuvastatin [Crestor] 20 mg PO DAILY 05/02/24 [History] RX: allopurinoL 100 mg PO DAILY 05/02/24 [History] RX: Cholecalciferol (Vitamin D3) [Vitamin D3 (50 Mcg = 2000 Iu)] 50 mcg PO DAILY 06/20/24 [History] Turmeric 538mg 1 cap PO DAILY 06/20/24 [History] Iron 60 mg PO BID 10/16/24 [History] RX: Alendronate Sodium 70 mg PO TU 10/16/24 [History] RX: atenoloL [Tenormin] 25 mg PO DAILY #90 tab 10/17/24 [Rx] Follow up Appointment(s)/Referral(s): Wilmer Redman MD [STAFF PHYSICIAN] - 1 Week (Office will call with appointment date and time.) Patient Instructions/Handouts: Acute Kidney Injury (GEN), Urinary Tract Infection in Women (DC) Activity/Diet/Wound Care/Special Instructions: Post EP study - Ablation instructions 1. Keep access sites dry for 2 days. 2. No heavy lifting or straining for 2 days. 3. Avoid bending the hips repeatedly for 2 days. 4. You may go up and down stairs slowly 5. If you have had an ablation for atrial fibrillation or atrial flutter and are on a blood thinner, do not stop the blood thinner even temporarily for 3 months post ablation Call if the following is noted 1. Bleeding, increasing swelling or pain at the access sites. 2. Increasing chest discomfort, especially upon taking a deep breath. 3. Increasing shortness of breath, at rest or with exertion. 4. Undue cough / phlegm 5. Difficulty or pain while swallowing. 6. Pain or change in color in the extremities. 7. Fever, chills, rigors. 8. Increasing headache or neurologic symptoms. 9. Dizziness, fainting, palpitations For patients who have undergone an A-fib ablation /atrial flutter ablation Strict instruction; do NOT stop anticoagulation (Eliquis/Xarelto/Pradaxa) for the next 2 months temporarily, for any elective, nonurgent surgery. This increases the risk of stroke, post A-fib ablation Reduce atenolol to 25 mg once daily in the morning Continue low-dose amiodarone 100 mg p.o. daily Continue all other medications Discharge Disposition: HOME SELF-CARE
== END 2024-10-18 14:28 | disposition home or self-care (01) ==
LOC: CATHEP 09:42 → 6NMEDSUR 15:18 → CATHEP 10-18 14:28
PROVIDERS: ATTEND Internal Medicine Clinical Cardiac Electrophysiology
DX: I48.19 Other persistent atrial fibrillation (principal); I34.0 Nonrheumatic mitral (valve) insufficiency; E78.5 Hyperlipidemia, unspecified; I12.9 Hypertensive chronic kidney disease with stage 1 through stage 4 chronic kidney disease, or unspecified chronic kidney disease; N18.32 Chronic kidney disease, stage 3b; Z79.01 Long term (current) use of anticoagulants; Z87.891 Personal history of nicotine dependence; Z90.49 Acquired absence of other specified parts of digestive tract; Z98.51 Tubal ligation status; Z91.030 Bee allergy status; Z88.8 Allergy status to other drugs, medicaments and biological substances; Z79.899 Other long term (current) drug therapy; Z82.49 Family history of ischemic heart disease and other diseases of the circulatory system
CPT/HCPCS: 93656; 93657; 86900; 86901; 80053; 84443; 85025; 86850; C1759; C1894; C1769; C1760 ×2; C1730 ×2; C1731; C1733; C1766; C1732; J2250 ×2; J0330; J1644 ×3; J2003; J3010; J2704; Q9967

== ENCOUNTER → 2025-01-07 | Outpatient (CLI) | payer MEDICARE ==
--- NOTE | 2025-01-07 12:43 | US ---
EXAMINATION TYPE: US carotid duplex BILAT DATE OF EXAM: 01/07/2025 COMPARISON: NONE CLINICAL INDICATION: Female, 69 years old with history of R42 DIZZINESS AND GIDDINESS; TECHNIQUE: Grayscale, color Doppler and spectral Doppler evaluation of the bilateral carotid systems and vertebral arteries. Indirect Doppler criteria was utilized. FINDINGS: EXAM MEASUREMENTS: RIGHT: Peak Systolic Velocity (PSV) cm/sec ----- Right CCA: 75.2 ----- Right ICA: 128.0 ----- Right ECA: 112.0 ICA/CCA ratio: 1.7 RIGHT: End Diastole cm/sec ----- Right CCA: 13.8 ----- Right ICA: 16.1 ----- Right ECA: 0.7 LEFT: Peak Systolic Velocity (PSV) cm/sec ----- Left CCA: 74.6 ----- Left ICA: 134.0 ----- Left ECA: 98.7 ICA/CCA ratio: 1.8 LEFT: End Diastole cm/sec ----- Left CCA: 12.0 ----- Left ICA: 21.4 ----- Left ECA: 8.5 VERTEBRALS (direction of flow): Right Vertebral: Antegrade Left Vertebral: Antegrade Rhythm: Normal IMPRESSION: Right: Less than 50% stenosis of the carotid bifurcation. Left: Less than 50% stenosis of the carotid bifurcation. Criteria for Assigning % of Stenosis / Diameter reduction (Estimation based on the indirect measurements of the internal carotid artery velocities (ICA PSV). 1. Normal (no stenosis)=ICA PSV < 180 cm/s: ratio < 2.0: ICA EDV<40 cm/s. 2. Less than 50% stenosis=ICA PSV < 180 cm/s: ratio < 2.0: ICA EDV<40 cm/s. 3. 50 to 69% stenosis=ICA PSV of 180 to 230 cm/s: ration 2.0 ? 4.0: ICA EDV 40-100 cm/s. PSV 125-180 cm/sec and ICA/CCA PSV Ratio ? 2.0 is also consistent with 50-69% stenosis 4. Greater than 70% stenosis to near occlusion= ICA PSV > 230 cm/s: ratio > 4.0: ICA EDV > 100 cm/s. 5. Near occlusion= ICA PSV velocities may be low or undetectable: variable ratio and ICA EDV. 6. Total occlusion=unable to detect flow. [facility], , 01/07/2025 12:40 PM
== END | disposition home or self-care (01) ==
LOC: RADUSWWP 10:37
PROVIDERS: ATTEND Internal Medicine Nephrology
DX: I65.23 Occlusion and stenosis of bilateral carotid arteries (principal)
CPT/HCPCS: 93880

== ENCOUNTER → 2025-01-21 | Outpatient (CLI) | payer MEDICARE ==
--- NOTE | 2025-01-21 17:13 | CT ---
EXAMINATION TYPE: CT brain wo con CT DLP: 1204 mGycm, Automated exposure control for dose reduction was used. DATE OF EXAM: 01/21/2025 4:39 PM COMPARISON: CT brain 03/16/2014 CLINICAL INDICATION:Female, 69 years old with history of R42 DIZZINESS AND GIDDINESS, dizziness TECHNIQUE: Brain: Multiple axial CT images of the brain were obtained without IV contrast. . Coronal and sagitta l reformats reviewed. FINDINGS: Brain: Extra-axial spaces: No abnormal extra-axial fluid collections. Ventricular system: Within normal limits Cerebral parenchyma: Mild age-appropriate cerebral volume loss. No acute intraparenchymal hemorrhage or mass effect. The torres-white junction is well differentiated. Scattered hypoattenuating areas are seen within the periventricular white matter. Remote-appearing small lacunar injury within the right posterior frontal lobe white matter. Cerebellum: Unremarkable. Mass effect: No evidence of midline shift. Intracranial vasculature: Atherosclerotic calcifications of the intracranial vessels. Soft tissues: Normal. Calvarium/osseous structures: No depressed skull fracture. Paranasal sinuses and mastoid air cells: Clear Visualized orbits: Bilateral aphakia IMPRESSION: 1. No acute intracranial process. 2. Remote lacunar injury along with mild nonspecific white matter changes likely secondary to chronic microangiopathy. [facility], , 01/21/2025 5:11 PM
== END | disposition home or self-care (01) ==
LOC: RADCTMAIN 15:49
PROVIDERS: ATTEND Internal Medicine Nephrology
DX: R90.82 White matter disease, unspecified (principal); R42 Dizziness and giddiness
CPT/HCPCS: 70450

== ENCOUNTER 2025-02-01 16:30 | Emergency (ER) | payer MEDICARE, OTHER ==
[2025-02-01] MEDS: CEPHALEXIN 500MG STARTER PACK 4 CAP BTL PO STA (17:50)
[2025-02-01] MEDS: traMADol 50 MG STARTER PACK 3 TAB BTL PO STA (17:51)
[2025-02-01] MEDS: FAMOTIDINE 20 MG TAB PO STA (17:51)
[2025-02-01] MEDS: HYDROcodone/APAP 10-325MG 1 EACH TAB PO ONE (17:51)
[2025-02-01] MEDS: DEXAMETHASONE SOD PHOSPHATE 10 MG/ML 1 ML VIAL IM STA (17:52)
--- NOTE | 2025-02-01 17:56 | ED ---
General Adult HPI - General Chief complaint: Extremity Problem,Nontraumatic Stated complaint: bug bite Time Seen by Provider: 02/01/25 16:39 Source: patient Mode of arrival: wheelchair Limitations: no limitations - History of Present Illness Initial comments: Patient is a pleasant 69 y/o female PMH atrial fibrillation presenting for right wrist swelling. Pt states she is allergic to bees and believes she was potentially stung by a bee or bit by another bug on Monday. Since then, she has noticed redness and swelling of the radial aspect of the right wrist with swelling extending to the hand. She had recent foot surgery so has been taking previously prescibed norco for her pain without much relief. Has been taking bendadryl every 4 hours without improvement. Is unable to take NSAIDs as she is on a blood thinner. Has also been icing the affected extremity. She denies shortness of breath, wheezing, sensation of tongue or throat swelling, dizz iness, fevers, chest pain, nausea, vomiting or abdominal pain. Denies any injury to her wrist/hand. States she has noted an area along the lateral aspect of her hand that appears consistent with a bee sting or bug bite. - Related Data Home Medications Medication Instructions Recorded Confirmed Cyanocobalamin (Vitamin B-12) 1,000 mcg PO DAILY 02/28/20 10/17/24 [Vitamin B-12] Amiodarone [Cordarone] 100 mg PO HS 10/07/22 10/17/24 Apixaban [Eliquis] 5 mg PO BID 10/07/22 10/17/24 Losartan Potassium 100 mg PO DAILY 10/07/22 10/17/24 Torsemide [Demadex] 20 mg PO Q48H 10/07/22 10/17/24 hydrALAZINE HCL 50 mg PO TID 10/07/22 10/17/24 Rosuvastatin [Crestor] 20 mg PO DAILY 05/02/24 10/17/24 allopurinoL 100 mg PO DAILY 05/02/24 10/17/24 Cholecalciferol (Vitamin D3) 50 mcg PO DAILY 06/20/24 10/17/24 [Vitamin D3 (50 Mcg = 2000 Iu)] Turmeric 538mg 1 cap PO DAILY 06/20/24 10/17/24 Alendronate Sodium 70 mg PO TU 10/16/24 10/17/24 Iron 60 mg PO BID 10/16/24 10/17/24 Previous Rx's Medication Instructions Recorded atenoloL [Tenormin] 25 mg PO DAILY #90 tab 10/17/24 Cephalexin [Keflex] 500 mg PO Q6HR 7 Days #28 cap 02/01/25 predniSONE [Deltasone] 40 mg PO DAILY 4 Days #8 tab 02/01/25 EPINEPHrine (Auto Inject) [Epipen] 0.3 mg IM ONCE PRN #2 each 02/02/25 Allergies Allergy/AdvReac Type Severity Reaction Status Date / Time diclofenac Allergy Anaphylaxis Verified 02/01/25 16:35 venom-honey bee Allergy Swelling Verified 02/01/25 16:35 ciprofloxacin [From Cipro] AdvReac Hallucinati Verified 02/01/25 16:35 ons Review of Systems ROS Statement: Those systems with pertinent positive or pertinent negative responses have been documented in the HPI. ROS Other: All systems not noted in ROS Statement are negative. Past Medical History Past Medical History: Atrial Fibrillation, Hyperlipidemia, Hypertension, Osteoarthritis (OA), Renal Disease, Skin Disorder Additional Past Medical History / Comment(s): eczema. nery hip arthritis, bursitis, and pain. pt states falls frequently, uses a walker but loses balance with dizziness and lightheadedness- last fall 2 days ago, pt states no injury. chronic kidney disease stage 3B History of Any Multi-Drug Resistant Organisms: None Reported Past Surgical History: Appendectomy, Orthopedic Surgery, Tubal Ligation Additional Past Surgical History / Comment(s): cataracts, rt shoulder surg, cardioversion Past Anesthesia/Blood Transfusion Reactions: No Reported Reaction Past Psychological History: No Psychological Hx Reported Smoking Status: Former smoker Past Alcohol Use History: Occasional Past Drug Use History: None Reported - Past Family History Mother Family Medical History: AFIB Father Family Medical History: Congestive Heart Failure (CHF) Sister(s) Family Medical History: Cancer General Exam - General Exam Comments Initial Comments: PE: CONSTITUTIONAL: No apparent distress, well appearing SKIN: Warm, dry, no jaundice,punctate area of erythema consistent with possible arthropod bite/bee sting along radial aspect of right hand just inferior to thumb, no imbedded foreign body or stinger visualized, mild surrounding erythema, no well demarcated, no streaking or vesicular lesions EYES: Pupils are equally round, extraocular movements intact without nystagmus, clear conjunctiva, non-icteric sclera HENT: Normocephalic, atraumatic, moist mucus membranes, oropharynx clear without exudates NECK: , Full range of motion, normal appearance PULMONARY: Clear to auscultation without wheezes, rhonchi, or rales, normal excursion, no accessory muscle use and no stridor CARDIOVASCULAR: Regular rate, rhythm, normal S1 and S2. No appreciated murmurs, rubs or gallops. Strong radial pulses with intact distal perfusion. No lower extremity edema GASTROINTESTINAL: Soft, active bowel sounds throughout, non-tender, non- distended, no palpable masses, no rebound or guarding. No hepatosplenomegaly MUSCULOSKELETAL: Right hand is mildly edematous swollen up to approximately just past the wrist, exam is limited by pt's ability to tolerate/cooperate with exam 2/2 pain, have 2+ radial pulse is palpable, no gross deformity, able to move fingers, pain with flexion of wrist, and moving fingers, no bony TTP, proximal forearm, elbow, bicep and shoulder are nontender to palpation, able to range through full ROM, neurovascularly intact, remaining extremities have no gross deformity, no edema, redness, or swelling. No calf swelling NEUROLOGIC:_a/o x 3, GCS 15, normal mentation and speech. Moves all extremities x 4 without motor or sensory deficit, w/ exception of pain as noted above PSYCHIATRIC:_normal mood and affect, thought process is clear and linear Limitations: no limitations Course Vital Signs 02/01/25 02/01/25 16:32 18:33 Temperature 98.0 F 98.2 F Pulse Rate 92 90 Respiratory 16 18 Rate Blood Pressure 129/63 130/73 O2 Sat by Pulse 97 99 Oximetry Medical Decision Making - Medical Decision Making Was pt. sent in by a medical professional or institution (, PA, [employer], urgent care, hospital, or half-way...) When possible be specific @ -No Did you speak to anyone other than the patient for history (EMS, parent, family, police, friend...)? What history was obtained from this source @ -No Did you review nursing and triage notes (agree or disagree)? Why? @ -I reviewed nursing and triage notes Differential Diagnosis (chest pain, altered mental status, abdominal pain women, abdominal pain men, vaginal bleeding, weakness, fever, dyspnea, syncope, headache, dizziness, GI bleed, back pain, seizure, CVA, palpatations, mental health, musculoskeletal)? @Differential diagnosis remains broad however top considerations include allergic reaction, anaphylaxis, cellulitis, DVT, fracture, sprain this is not all-inclusive list EKG interpreted by me (3pts min.). @ -As above X-rays interpreted by me (1pt min.). @ -None done CT interpreted by me (1pt min.). @ -None done U/S interpreted by me (1pt. min.). @ -None done What testing was considered but not performed or refused? (CT, X-rays, U/S, labs)? Why? @X-ray of the wrist was considered however patient has no gross deformity, she denies any injury to the left hand or wrist, exam is more consistent with localized allergic reaction +/- cellulitis Ultrasound DVT of the right upper extremity was considered however edema does not extend up the upper extremity to the shoulder, there is no venous prominence, patient is anticoagulated on Eliquis, given warmth edema and pain with area suspicious for recent bee sting I feel this is unnecessary at this time What meds were considered but not given or refused? Why? @And epinephrine was considered however patient does not have any additional signs or symptoms of anaphylaxis and swelling is localized to the wrist Did you discuss the management of the patient with other professionals (professionals i.e. , PA, [employer], lab, RT, psych nurse, aids social worker, tooth cutter spur, teacher, code enforcement officer, case liner)? Give summary @ -No Was smoking cessation discussed for >3mins.? @ -No Was critical care preformed (if so, how long)? @ -No Were there social determinants of health that impacted care today? How? (Homelessness, low income, unemployed, alcoholism, drug addiction, transportation, low edu. Level, literacy, decrease access to med. care, assisted, rehab)? @ -No Was there de-escalation of care discussed even if they declined (Discuss DNR or withdrawal of care, Hospice)? @ -No What co-morbidities impacted this encounter? (DM, HTN, Smoking, COPD, CAD, Cancer, CVA, ARF, Chemo, Hep., AIDS, mental health diagnosis, sleep apnea, morbid obesity)? @ -None Was patient admitted / discharged? Hospital course, mention meds given and route, prescriptions, significant lab abnormalities, going to OR and other pertinent info. @Discharged-pleasant 69-year-old female presenting today for right wrist swelling after she suspects she was stung by a bee. Vital signs are stable on arrival. She denies systemic symptoms. As patient is unable to have NSAIDs she will receive [place] for pain control, discussed with her administration of Decadron, Pepcid and hydroxyzine. There is a possibility for developing cellulitis of the area of swelling so she we will also be prescribed cephalexin. Patient comfortable and agreeable plan of care. I did offer the patient the option to remain in the emergency department for observation after administration of medications to evaluate for improvement however pt preferred discharge home after medications. I feel this is reasonable as she is currently in stable condition. She will be discharged with keflex, steroids, and starter pack for pain medications. Pt and I discussed importance of ice and elevating affected extremity, as well as discussed signs and symptoms to monitor for warranting return to the ED, including but not limited to fevers, failure of pain and swelling to improve over the next 24 hours, development of tongue swelling, lip swelling, difficulty breathing, nausea and/or vomiting and uncontrolled pain. In my medical judgment there is currently no evidence of an immediate life- threatening or surgical condition. Discharge is therefore indicated at this time. Discharge treatment instructions, follow up instructions, and appropriate emergency department return precautions were discussed with the patient and/or medical decision maker. Patient and/or medical decision maker expressed understanding of and agreed with the treatment plan, follow up instructions, and emergency department return precaution. All patient's and/or medical decision maker's questions were answered. The patient was advised that a small risk still exists that a serious condition could develop and was therefore instructed to return to the ED for any changes in symptoms, persistent symptoms, inability to obtain proper follow-up or for any further concerns. Patient received verbal and written instructions for this condition. Undiagnosed new problem with uncertain prognosis? @ -No Drug Therapy requiring intensive monitoring for toxicity (Heparin, Nitro, Insulin, Cardizem)? @ -No Were any procedures done? @ -No Diagnosis/symptom? @ Arthopod bite, allergic reaction, cellulitis Acute, or Chronic, or Acute on Chronic? @ -acute Uncomplicated (without systemic symptoms) or Complicated (systemic symptoms)? uncomplicated Side effects of treatment? @ -No Exacerbation, Progression, or Severe Exacerbation? @ -No Poses a threat to life or bodily function? How? (Chest pain, [place], [place], pneumonia, PE, COPD, DKA, ARF, appy, cholecystitis, CVA, Diverticulitis, Homicidal, Suicidal, threat to staff... and all critical care pts) @ -No Disposition Clinical Impression: Arthropod bite, Allergic reaction, Cellulitis Disposition: HOME SELF-CARE Condition: Good Additional Instructions: Every disease is a spectrum and a small chance still exists that a serious condition could develop, for this reason, please monitor yourself closely for new, changing or worsening symptoms, symptoms that do not improve in the next 24 hours, spreading redness or swelling, difficulty in breathing, tongue swelling, throat swelling or wheezing, nausea, vomiting or fever, uncontrolled pain, inability to tolerate/keep down fluids or your medications, inability to follow up with outpatient providers as instructed and should you experience these symptoms or should you have any further concerns for your wellbeing please return to the ED or call 911 immediately. PLEASE call your primary care physician as soon as possible to arrange / discuss plan for followup appointment. Appointment in the next 1-3 days is strongly encouraged if possible. PLEASE let us know here before you leave if there is anything further we can do to be of any assistance. Take care and feel Better! Prescriptions: predniSONE [Deltasone] 40 mg PO DAILY 4 Days #8 tab EPINEPHrine (Auto Inject) [Epipen] 0.3 mg IM ONCE PRN #2 each PRN Reason: Difficulty breathing Cephalexin [Keflex] 500 mg PO Q6HR 7 Days #28 cap Is patient prescribed a controlled substance at d/c from ED?: Yes When asked, does pt state using other controlled substances?: Yes If prescribed controlled substance>3 days was MAPS reviewed?: Prescribed <3 Days (tramadol starter pack from ED.) If opioid is for acute pain is fill amount 7 days or less?: Yes Referrals: Kim Burciaga MD [Primary Care Provider] - 1-2 days
[2025-02-01] MEDS: hydrOXYzine HCL 25 MG TAB PO STA (18:19)
[2025-02-01] MEDS: hydrOXYzine HCL 50 MG/ML 1 ML VIAL IM STA (18:21)
[2025-02-01 18:34] VITALS: BP 130/73; PULSE 90; RESP 18; TEMP 98.2
== END 2025-02-01 18:45 | disposition home or self-care (01) ==
LOC: EC 16:30
DX: T78.40XA Allergy, unspecified, initial encounter (principal); S61.551A Open bite of right wrist, initial encounter; L03.113 Cellulitis of right upper limb; Z91.030 Bee allergy status; Z88.1 Allergy status to other antibiotic agents; Z90.49 Acquired absence of other specified parts of digestive tract; Z88.6 Allergy status to analgesic agent; Z87.891 Personal history of nicotine dependence; W57.XXXA Bitten or stung by nonvenomous insect and other nonvenomous arthropods, initial encounter
CPT/HCPCS: 99283; 96372; J1100